=== PATIENT | male | born 1950 | race Caucasian/White ===

== ENCOUNTER 2017-08-25 18:25 | Inpatient (IN) | payer SELFPAY ==
[2017-08-25 20:35] LABS: Troponin I 0.055 ng/mL (< 0.028)
[2017-08-25 23:34] LABS: Troponin I 0.066 ng/mL (< 0.028)
[2017-08-26] MEDS ORDERED: Ondansetron HCl/PF 4 MG/2 ML Vial IVP PRN (00:15)
[2017-08-26] MEDS ORDERED: Ondansetron ODT 4 MG TAB PO PRN (00:15)
[2017-08-26] MEDS ORDERED: cloNIDine 0.1 MG TAB PO PRN (00:15)
[2017-08-26] MEDS ORDERED: Acetaminophen 500 MG TAB PO PRN (00:15)
[2017-08-26] MEDS ORDERED: hydrALAZINE 20 MG/ML VIAL SLOW IVP PRN (00:15)
--- NOTE | 2017-08-26 01:13 | HP ---
DATE OF ADMISSION: 08/25/2017 PRIMARY CARE PHYSICIAN: [facility] in [place], [place]. CHIEF COMPLAINT: Shortness of breath and leg swelling. HISTORY OF PRESENT ILLNESS: This is a 66-year-old male who presents to [facility] in transfer from a [facility] after complaining of persistent shortn ess of breath with associated lower extremity swelling, progressive over the last 3 weeks. Patient s tates that he had recently been diagnosed with influenza x2 with associated pneumonia, placed on Leva theron and followed by Dipika and given Proventil HFA inhaler. Patient states he has not seen a doc tor in over 18 years, but followed up at the clinic due to shortness of breath, fever, and suspected influenza. Patient states that his productive cough improved with antibiotics and bronchodilators. However, he noted persistent shortness of breath, which was worse with lying down with associated swe lling of the lower feet, progressing into the thighs and abdomen. Patient denies any prior similar s ymptoms or presentation in the past. Patient denies any known health problems, but does admit to smo ana cristina cigarettes up to a pack daily. Patient denies any chronic medication use, exposure history, rec ent trauma, injury, or documented fever. Patient denies any chemical exposure and states he is curre ntly retired. In the emergency department, patient underwent general evaluation including chest and CT imaging showing bilateral pleural effusions with cardiomegaly and changes consistent with pulmonar y edema. Patient underwent BNP evaluation showing a value over 2000 with elevated troponin I. Nat das received IV Lasix, aspirin 324 mg, and transdermal nitroglycerin. [facility]. PAST MEDICAL HISTORY: 1. Tobacco abuse. 2. Status post influenza/pneumonia. PAST SURGICAL HISTORY: Reviewed and negative. CURRENT MEDICATIONS: Albuterol metered-dose inhaler. ALLERGIES: No known drug allergies. FAMILY HISTORY: No inheritable diseases per patient report. SOCIAL HISTORY: Patient resides in [place], [place]. Retired. Smokes up to a pack of cigarette s daily. Positive alcohol use, quantity unclear. No illicit drug use. 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 REVIEW OF SYSTEMS: The following complete review of systems was otherwise negative, except as stated per HPI: Constitutional: Weight loss or gain, ability to conduct usual activities. Skin: Rash, i tching. Eyes: Double vision, pain. ENT/Mouth: Nose bleeding, neck stiffness, pain, tenderness. C ardiovascular: Palpitations, dyspnea on exertion, orthopnea. Respiratory: Shortness of breath, whe ezing, cough, hemoptysis, fever, or night sweats. Gastrointestinal: Poor appetite, abdominal pain, heartburn, nausea, vomiting, constipation, or diarrhea. Genitourinary: Urgency, frequency, dysuria, nocturia. Musculoskeletal: Pain, swelling. Neurologic/Psychiatric: Anxiety, depression. Allergy /Immunologic: Skin rash, bleeding tendency. PHYSICAL EXAMINATION: VITAL SIGNS: On admission, blood pressure 159/103, pulse 114, respiratory rate 22, temperature 98.8 degrees Fahrenheit, O2 saturation 91% on room air. GENERAL APPEARANCE: This is a 66-year-old male, alert and oriented x3, pleasant, conversan t, smiling, in no acute distress. HEENT: Pupils are equal, round, and reactive to light and accommodation. Extraocular muscles are in tact. No scleral icterus, no conjunctival injection. Nares patent. OP is clear. NECK: Supple, no cervical adenopathy, no thyromegaly, no carotid bruits, no JVD appreciated. Cervic al spine with full active and passive range of motion. No meningeal signs appreciated. CHEST: Diminished breath sounds bilaterally in all lung rodgers. Expiratory wheezes bilaterally. CARDIOVASCULAR: S1, S2 with distant heart sounds. ABDOMEN: Protuberant, but nontender. Bowel sounds are positive in all four quadrants. No palpable mass. No rebound or guarding appreciated. EXTREMITIES: Pitting edema to the mid thighs bilaterally. Pulses palpable distally at the dorsalis pedis, posterior tibial, and popliteal arteries bilaterally. Capillary refill less than 2 seconds. NEUROLOGIC: Cranial nerves II-XII are grossly intact. No focal or lateralizing signs appreciated. PERTINENT LABORATORY AND X-RAY FINDINGS: Sodium 133, potassium 4.9, chloride 96, CO2 of 26, BUN 8, c reatinine 0.82, estimated GFR greater than 90, glucose 108, calcium 9.9. Total bilirubin 1.4, AST 35 , ALT of 20, alkaline phosphatase 117. Troponin I ranged between 0.039, 0.066, BNP 2838. CBC showed white blood cell count of 7.6, hemoglobin 14, hematocrit 44, platelet count 191 with normal differen tial. Portable chest x-ray dated 08/25/2017 showed moderately large left pleural effusion with assoc iated atelectasis. CT imaging of the chest dated 08/25/2017 showed large bilateral layering pleural effusions with cardiomegaly and pulmonary edema. Moderate ascites in the abdomen noted with nodular appearance of the liver suggestive of cirrhosis. EKG dated 08/25/2017 by my interpretation shows sin us tachycardia with heart rates in the low 100s. Attenuated R waves noted in the precordial leads. Normal axis. No acute ST-T wave changes appreciated. ASSESSMENT AND PLAN: 1. New-onset congestive heart failure. Patient will be admitted to the telemetry unit. We will con tinue Lasix 40 mg IV q.12 hours. Obtain 2D transthoracic echocardiogram for ejection fraction, valvu lar function, and wall motion abnormalities. Start lisinopril 2.5 mg p.o. daily. Consult Cardiology Service for further evaluation due to the new-onset nature of presentation. Patient likely will nee d ischemic workup after acute exacerbation, resolved. 2. Acute dyspnea with chronic obstructive pulmonary disease. Patient without formal diagnosis of ronic obstructive pulmonary disease; however, patient with longstanding tobacco abuse. We will initi ate prednisone 40 mg p.o. daily. DuoNebs q.4 hours. Add Dulera two puffs inhaled b.i.d. Continue o xygen supplementation to maintain O2 saturations greater than or equal to 90%. 3. Elevated blood pressure. Patient without formal diagnosis of hypertension; however, we will cont inue serial blood pressure monitoring. Clonidine and hydralazine p.r.n. systolic blood pressure grea ter than or equal to 170. Start lisinopril 2.5 mg p.o. daily. 4. Elevated troponin I. Suspect demand ischemic state due to patient's presentation. We will consu Cardiology Service for further evaluation. Continue enteric-coated aspirin 325 mg p.o. daily. [facility] fasting lipid profile in the a.m. 5. Tobacco abuse. We will offer smoking cessation resources prior to discharge. 6. Prophylaxis. We will hold sequential compression devices due to lower extremity edema. Lovenox 40 mg subcutaneously daily. Pepcid 20 mg p.o. b.i.d. 7. Code status is FULL. Surrogate medical decision maker is the patient's daughter.
[2017-08-26] MEDS: Furosemide 40 MG/4 ML VIAL SLOW IVP SCH ×2 (05:37→15:04)
[2017-08-26 05:45] LABS: Band 2 % (5-11); Eosinophils 1 % (0-10); Hemoglobin 13.8 g/dL (14.0-18.0); Lymphocytes 21 % (21-51); MDiff Complete? YES; Mean Corpuscular HGB CONC 32.8 g/dL (32.0-36.0); Mean Corpuscular Hemoglobin 31.8 pg (27.0-31.0); Mean Platelet Volume 7.6 fL (7.4-10.4); Monocytes 11 % (0-10); Neutrophil 65 % (42-75); Platelet Count 172 thou/uL (130-400); RBC Distribution Width 12.6 % (11.5-14.5); Red Blood Cell (RBC) Count 4.35 mill/uL (4.70-6.10); White Blood Cell (WBC) Count 6.1 thou/uL (4.8-10.8)
[2017-08-26 06:09] LABS: ALT (SGPT) 14 U/L (8-55); AST (SGOT) 27 U/L (5-34); Albumin 4.1 g/dL (3.4-4.8); Alkaline Phosphatase 105 U/L (40-150); Anion Gap 8 mmol/L (10-20); BUN (Urea Nitrogen) 8 mg/dL (8.4-25.7); Bilirubin, Total 1.4 mg/dL (0.2-1.2); Calc. Creatinine Clearance 125 mL/min (70-130); Calcium 9.9 mg/dL (7.8-10.44); Carbon Dioxide 36 mmol/L (23-31); Cardiac Risk 5.4 (Less than 4.5); Chloride 94 mmol/L (98-107); Cholesterol 162 mg/dl (< 200 Desired); Estimated GFR-MDRD Greater than 90; Globulin 2.1 g/dL (2.4-3.5); Glucose 75 mg/dL (80-115); HDL Cholesterol 30 mg/dL (>60 Neg Risk); LDL Cholesterol, Calculated 121 mg/dL; Potassium 4.1 mmol/L (3.5-5.1); Protein, Total 6.2 g/dL (5.8-8.1); Sodium 134 mmol/L (136-145); Triglycerides 53 mg/dL (Less than 150)
[2017-08-26] MEDS: Mometasone/Formoterol 120 PUFF INHALER INH SCH ×2 (06:12→19:08)
[2017-08-26 06:26] LABS: HBCM Index 0.16 S/CO (0-0.79); HBSAg Index 0.23 S/CO (0-0.99); Hep A IgM AB Non-Reactive (NonReactive); Hep A IgM S/CO 0.09 S/CO (0-0.79); Hep B Surf Ag Non-Reactive S/CO (NonReactive); Hep C IgG Ab Non-Reactive (NonReactive); Hep C Index 0.11 S/CO (0-0.79); Hepatitis B Core IGM Abs Non-Reactive (NonReactive)
[2017-08-26] MEDS ORDERED: Lisinopril 2.5 MG TAB PO SCH (09:00)
[2017-08-26] MEDS: Aspirin 325 mg Enteric Coated Tablet PO SCH (09:19)
[2017-08-26] MEDS: predniSONE 20 MG TAB PO SCH (09:20)
[2017-08-26] MEDS: Famotidine 20 MG TAB PO SCH ×2 (09:20→21:14)
[2017-08-26] MEDS: Lisinopril 10 MG TAB PO SCH (09:20)
[2017-08-26] MEDS: Enoxaparin Sodium 40 MG/0.4 ML SYRINGE SC SCH (09:21)
--- NOTE | 2017-08-26 11:44 | PDOC.PN ---
- Subjective Encounter Start Date: 08/26/17 Encounter Start Time: 11:42 Mr. Sloan was seen today in follow-up of new onset CHF. He says he is breathing better. He denies having any chest pain. - Objective Resuscitation Status: Resuscitation Status FULL:Full Resuscitation MAR Reviewed: Yes Vital Signs & Weight: Vital Signs (12 hours) Temp Pulse Resp BP Pulse Ox 08/26/17 09:42 90 14 94 L 08/26/17 08:11 98.2 F 86 18 95 08/26/17 06:12 93 18 93 L 08/26/17 06:10 93 18 93 L 08/26/17 04:00 97.4 F L 90 19 130/77 92 L 08/26/17 01:39 92 18 92 L 08/26/17 00:15 97.5 F L 95 20 135/85 92 L Weight Weight 218 lb I&O: 08/25/17 08/26/17 08/27/17 06:59 06:59 06:59 Intake Total 240 Output Total 400 Balance -160 Result Diagrams: 08/26/17 04:29 08/26/17 04:29 Additional Labs: Accuchecks 08/26/17 08:12 POC Glucose 80 Phys Exam - Physical Examination HEENT: PERRLA + rales at both bases Cardiovascular: RRR 2/6 systolic murmur radiating to the carotids Gastrointestinal: soft, non-tender, positive bowel sounds Musculoskeletal: edema present 2+ pitting edema bilaterally Dx/Plan (1) Acute exacerbation of CHF (congestive heart failure) Code(s): I50.9 - HEART FAILURE, UNSPECIFIED Status: Acute (2) Tobacco abuse Code(s): Z72.0 - TOBACCO USE Status: Acute - Plan * Acute CHF exacerbation- ? type. He has improved with Lasix IV overnight * Will monitor electrolytes and renal function * Echo is pending. Await further recommendations from Cardiology once Echo results are available.
--- NOTE | 2017-08-26 18:41 | CON ---
DATE OF CONSULTATION: 08/26/2017 REASON FOR CONSULTATION: Heart failure. HISTORY OF PRESENT ILLNESS: Mr. Sloan is a pleasant 66-year-old white gentleman who comes to the hospital for shortness of breath. He has noted for the last 3 weeks, he is progressively getting more short of breath with increased swelling on his legs as well as his abdomen since I recommend that the shortness of breath was too bad. For the last few weeks, he was diagnosed with the flu and thought that the shortness of breath was related to the influenza virus that he actually had it originally in May, had a recurrence of shortness of breath and thought was an overt infection with bacteria, so he was given antibiotics at that time. He did get some improvement that has progressively been getting worse for the past 2-3 weeks. He was admitted for this and was found to have very elevated BNP and found to be in heart failure clinically, so he has been diuresed and Cardiology is being consulted for this. PAST MEDICAL HISTORY: 1. Tobacco abuse. 2. Recent bout with influenza. PAST SURGICAL HISTORY: None. OUTPATIENT MEDICATIONS: Albuterol inhaler p.r.n. ALLERGIES: No known drug allergies. FAMILY HISTORY: Noncontributory. SOCIAL HISTORY: Smokes a pack of cigarettes a day, drinks almost every day. No drug use. REVIEW OF SYSTEMS: A 12 point review of systems was done and is all negative unless stated in the history of present illness. PHYSICAL EXAMINATION: VITAL SIGNS: Temperature 97.8, pulse 99, respiration rate 18, sat 95% on 2 liters, blood pressure 140/86. GENERAL: Awake, alert, oriented x3, in no distress. HEENT: Normocephalic, atraumatic. NECK: Supple. JVP up to about 14 cm of water. LUNGS: Bilateral crackles. CARDIOVASCULAR: S1, S2, no S3, S4, grade 3/6 systolic ejection murmur at the right upper sternal border, no rubs and no gallops. ABDOMEN: Soft with what is likely an ascitic wave. EXTREMITIES: 2+ edema. SKIN: Warm and dry. LABORATORY WORK: White count of 6.1, hemoglobin 13, hematocrit 42, platelet count 172. Chemistries were reviewed. Troponin was in the indeterminate range at 0.05, 0.06. BNP was 2974. Albumin of 4.1. Cholesterol 162, LDL of 121, HDL of 30, triglycerides of 53, hepatitis panel was nonreactive. EKG was reviewed. ASSESSMENT AND PLAN: 1. Acute on chronic systolic versus diastolic heart failure. Echocardiogram to be done to assess which type of heart failure this is, most likely RV dysfunction as well given the amount of lower extremity edema and abdominal swelling. Agree with continued diuresis for now. Depending on what type of heart failure he has, we will decide on further risk stratification with a heart catheterization and medication therapies. 2. Volume overload diurese as above. 3. Tobacco abuse, counseled on cessation. Thank you for letting us participate in the care of your patient. We will follow. SHOSHANA
[2017-08-27] MEDS: Furosemide 40 MG/4 ML VIAL SLOW IVP SCH ×2 (05:54→14:45)
[2017-08-27 05:55] LABS: Anion Gap 10 mmol/L (10-20); BUN (Urea Nitrogen) 15 mg/dL (8.4-25.7); Calc. Creatinine Clearance 112 mL/min (70-130); Calcium 9.6 mg/dL (7.8-10.44); Carbon Dioxide 37 mmol/L (23-31); Chloride 93 mmol/L (98-107); Estimated GFR-MDRD 88; Glucose 97 mg/dL (80-115); Potassium 3.7 mmol/L (3.5-5.1); Sodium 136 mmol/L (136-145)
[2017-08-27] MEDS: Mometasone/Formoterol 120 PUFF INHALER INH SCH ×2 (09:15→18:38)
[2017-08-27] MEDS: Lisinopril 10 MG TAB PO SCH (09:21)
[2017-08-27] MEDS: Aspirin 325 mg Enteric Coated Tablet PO SCH (09:22)
[2017-08-27] MEDS: Enoxaparin Sodium 40 MG/0.4 ML SYRINGE SC SCH (09:22)
[2017-08-27] MEDS: Famotidine 20 MG TAB PO SCH ×2 (09:22→21:26)
[2017-08-27] MEDS: predniSONE 20 MG TAB PO SCH (09:22)
--- NOTE | 2017-08-27 09:27 | RAD ---
CHEST PA AND LATERAL: HISTORY: Dyspnea. COMPARISON: 08/25/17. FINDINGS: Cardiac silhouette remains obscured by bilateral pleural fluid, left greater than right. Pulmonary v asculature remains engorged. Mediastinum is midline. No evidence of pneumothorax. satellite project site monitor leads overlie the chest. IMPRESSION: Bilateral pleural fluid, pulmonary vascular congestion, and other findings appear stable. POS: [facility]
--- NOTE | 2017-08-27 10:35 | PDOC.PN ---
- Subjective Encounter Start Date: 08/27/17 Encounter Start Time: 10:34 Mr. Sloan was seen today in follow-up. He is breathing better, and notes decreased lower extremity edema. - Objective Resuscitation Status: Resuscitation Status FULL:Full Resuscitation MAR Reviewed: Yes Vital Signs & Weight: Vital Signs (12 hours) Temp Pulse Pulse Pulse Resp BP BP 08/27/17 09:24 99 91 122/71 08/27/17 09:21 116/70 08/27/17 08:05 97.6 F 109 H 20 08/27/17 03:53 98.1 F 94 15 08/27/17 02:20 102 H 16 08/26/17 23:38 98.6 F 108 H 18 BP BP BP Pulse Ox Pulse Ox Pulse Ox 08/27/17 09:24 118/80 96 97 08/27/17 09:21 08/27/17 08:05 116/70 92 L 08/27/17 03:53 104/66 96 08/27/17 02:20 98 08/26/17 23:38 97/58 L 93 L Weight Admit Weight 219 lb 9 oz Weight 203 lb 4.8 oz I&O: 08/26/17 08/27/17 08/28/17 06:59 06:59 06:59 Intake Total 240 800 Output Total 400 1200 Balance -160 -400 Result Diagrams: 08/26/17 04:29 08/27/17 04:22 Additional Labs: Accuchecks 08/26/17 08/26/17 08/26/17 21:11 16:25 11:50 POC Glucose 188 H 106 81 Phys Exam - Physical Examination HEENT: PERRLA Respiratory: no wheezing, no rales, no rhonchi, clear to auscultation bilateral Cardiovascular: RRR, no significant murmur Gastrointestinal: soft, non-tender, positive bowel sounds Musculoskeletal: edema present 2+ pitting edema bilaterally Dx/Plan (1) Acute exacerbation of CHF (congestive heart failure) Code(s): I50.9 - HEART FAILURE, UNSPECIFIED Status: Acute (2) Tobacco abuse Code(s): Z72.0 - TOBACCO USE Status: Acute (3) Acute systolic heart failure Code(s): I50.21 - ACUTE SYSTOLIC (CONGESTIVE) HEART FAILURE Status: Acute (4) Aortic stenosis, moderate Code(s): I35.0 - NONRHEUMATIC AORTIC (VALVE) STENOSIS Status: Acute - Plan * Mr. Sloan is diuresing well with Lasix. He has lost about 15 pounds in fluid * Echo results were noted. He has Systolic heart failure. He also has moderate aortic stenosis- will await further Cardiology recommendations * Patient is not sure, but believes he may have had Rheumatic heart disease as a child
--- NOTE | 2017-08-27 12:18 | PDOC.CTH ---
Cardiology Progress Note - Subjective He is doing better. he has lost 21 pounds total since admission. He still is unable to lay flat. - Objective Vital Signs Temp Pulse Pulse Pulse Resp BP BP 08/27/17 09:24 99 91 122/71 08/27/17 09:21 116/70 08/27/17 09:15 99 18 08/27/17 08:05 97.6 F 109 H 20 08/27/17 08:00 97.6 F 109 H 20 08/27/17 03:53 98.1 F 94 15 08/27/17 02:20 102 H 16 BP BP BP Pulse Ox Pulse Ox Pulse Ox 08/27/17 09:24 118/80 96 97 08/27/17 09:21 08/27/17 09:15 97 08/27/17 08:05 116/70 92 L 08/27/17 08:00 92 L 08/27/17 03:53 104/66 96 08/27/17 02:20 98 Admit Weight 219 lb 9 oz Weight 203 lb 4.8 oz 08/26/17 08/27/17 08/28/17 06:59 06:59 06:59 Intake Total 240 800 Output Total 400 1200 Balance -160 -400 - Physical Examination General/Neuro: alert & oriented x3, NAD Neck: no JVD present Lungs: CTA Heart: RRR, other: (Tachycardic.) Abdomen: NT/ND Extremities: + edema B (1+) - Telemetry Telemetry Rhythm: S Tach - Labs Result Diagrams: 08/26/17 04:29 08/27/17 04:22 Troponin/CKMB Troponin I 0.066 ng/mL (< 0.028) H 08/25/17 22:58 - Assessment/Plan 1. Acute new onset systolic heart failure. EF at 30-35% 2. Volume overload. 3. Aortic valve stenosis/regurgitation, moderate on echo. 4. Tobacco abuse. PLAN: - Will reduce dose of Lisinopril to 2.5 mg daily to be able to add Coreg at 3.125 mg BID. - Continue IV lasix. - Plan on right and left heart cath next week once closer to euvolemia.
[2017-08-27] MEDS ORDERED: Communication Order-Pharmacy FS SCH (12:45)
[2017-08-27] MEDS: Carvedilol 3.125 MG TAB PO SCH (16:59)
[2017-08-28] MEDS: Furosemide 40 MG/4 ML VIAL SLOW IVP SCH ×2 (05:39→14:36)
[2017-08-28] MEDS: Mometasone/Formoterol 120 PUFF INHALER INH SCH ×2 (06:46→18:59)
[2017-08-28] MEDS: Aspirin 325 mg Enteric Coated Tablet PO SCH (08:52)
[2017-08-28] MEDS: Lisinopril 2.5 MG TAB PO SCH (08:53)
[2017-08-28] MEDS: Famotidine 20 MG TAB PO SCH ×2 (08:56→22:31)
[2017-08-28] MEDS: Carvedilol 3.125 MG TAB PO SCH ×2 (08:57→16:23)
[2017-08-28] MEDS: predniSONE 20 MG TAB PO SCH (08:57)
[2017-08-28] MEDS: Enoxaparin Sodium 40 MG/0.4 ML SYRINGE SC SCH (08:57)
--- NOTE | 2017-08-28 09:36 | PDOC.PN ---
- Subjective Encounter Start Date: 08/28/17 Encounter Start Time: 09:34 Mr. Sloan was seen today in follow-up. He says he is breathing better. He denies any chest pain. - Objective Resuscitation Status: Resuscitation Status FULL:Full Resuscitation MAR Reviewed: Yes Vital Signs & Weight: Vital Signs (12 hours) Temp Pulse Resp BP BP Pulse Ox 08/28/17 08:53 96 112/63 08/28/17 06:46 97 08/28/17 06:44 73 18 97 08/28/17 04:00 97.9 F 95 18 132/92 H 96 08/28/17 01:53 79 20 97 08/28/17 00:06 94 L 08/28/17 00:00 97.7 F 91 18 101/64 93 L 08/27/17 21:46 103 H 20 94 L Weight Admit Weight 219 lb 9 oz Weight 202 lb 3.2 oz I&O: 08/27/17 08/28/17 08/29/17 06:59 06:59 06:59 Intake Total 800 2285 Output Total 1200 2825 Balance -400 -540 Result Diagrams: 08/26/17 04:29 08/27/17 04:22 Phys Exam - Physical Examination HEENT: PERRLA Respiratory: no wheezing, no rales, no rhonchi, clear to auscultation bilateral Cardiovascular: RRR, no significant murmur Gastrointestinal: soft, non-tender, positive bowel sounds Musculoskeletal: edema present 2+ pitting edema bilaterally Dx/Plan (1) Acute exacerbation of CHF (congestive heart failure) Code(s): I50.9 - HEART FAILURE, UNSPECIFIED Status: Acute (2) Tobacco abuse Code(s): Z72.0 - TOBACCO USE Status: Acute (3) Acute systolic heart failure Code(s): I50.21 - ACUTE SYSTOLIC (CONGESTIVE) HEART FAILURE Status: Acute (4) Aortic stenosis, moderate Code(s): I35.0 - NONRHEUMATIC AORTIC (VALVE) STENOSIS Status: Acute - Plan * Acute systolic heart failure- continue Lasix IV and incentive spirometry * Plan is for cardiac cath on Wednesday.
--- NOTE | 2017-08-28 13:51 | PDOC.CTH ---
<Taisha Conteh - Last Filed: 08/28/17 13:55> Cardiology Progress Note - Subjective The pt seen and examined. No overnight events. No cardiac complaints. - Objective Vital Signs Temp Pulse Pulse Pulse Resp BP BP 08/28/17 11:44 86 90 120/76 08/28/17 10:31 08/28/17 10:16 87 16 08/28/17 08:53 98 F 96 23 H 112/63 08/28/17 06:46 08/28/17 06:44 73 18 08/28/17 04:00 97.9 F 95 18 08/28/17 01:53 79 20 BP BP Pulse Ox Pulse Ox Pulse Ox 08/28/17 11:44 120/75 94 L 93 L 08/28/17 10:31 95 08/28/17 10:16 98 08/28/17 08:53 112/63 93 L 08/28/17 06:46 97 08/28/17 06:44 97 08/28/17 04:00 132/92 H 96 08/28/17 01:53 97 Admit Weight 219 lb 9 oz Weight 202 lb 3.2 oz 08/27/17 08/28/17 08/29/17 06:59 06:59 06:59 Intake Total 800 2285 Output Total 1200 2825 Balance -400 -540 - Physical Examination General/Neuro: alert & oriented x3 Neck: no JVD present Lungs: CTA (diminished at bases) Heart: RRR Abdomen: soft - Telemetry Telemetry Rhythm: SR - Labs Result Diagrams: 08/26/17 04:29 08/27/17 04:22 Troponin/CKMB Troponin I 0.066 ng/mL (< 0.028) H 08/25/17 22:58 - Assessment/Plan 1. New Onset systolic HF with EF 30-35% - stable with Lasix 40 mg IV BID, Coreg 3.125mg BID, and Lisinopril 2.5mg daily; cont. monitor; plan for right and left heart Cardiac cath next wk by Dr Salinas 2. mod /AR - 3. Current smoker - smoking cessation education given to the pt MAR reviewed Review of Systems - Review of Systems Constitutional: reports: no symptoms reported EENTM: reports: no symptoms reported Respiratory: reports: no symptoms reported Cardiac (ROS): reports: no symptoms reported ABD/GI: reports: no symptoms reported : reports: no symptoms reported <Rashaun Peters - Last Filed: 08/28/17 17:34> Cardiology Progress Note - Objective Vital Signs Temp Pulse Pulse Pulse Resp BP BP 08/28/17 16:28 97.7 F 89 19 08/28/17 14:49 77 18 08/28/17 11:44 86 90 120/76 08/28/17 11:03 98.1 F 96 16 08/28/17 10:31 08/28/17 10:16 87 16 08/28/17 08:53 98 F 96 23 H 112/63 08/28/17 06:46 08/28/17 06:44 73 18 BP BP Pulse Ox Pulse Ox Pulse Ox 08/28/17 16:28 136/76 91 L 08/28/17 14:49 95 08/28/17 11:44 120/75 94 L 93 L 08/28/17 11:03 122/66 90 L 08/28/17 10:31 95 08/28/17 10:16 98 08/28/17 08:53 112/63 93 L 08/28/17 06:46 97 08/28/17 06:44 97 Admit Weight 219 lb 9 oz Weight 202 lb 3.2 oz 08/27/17 08/28/17 08/29/17 06:59 06:59 06:59 Intake Total 800 2285 Output Total 1200 2825 Balance -400 -540 - Labs Result Diagrams: 08/26/17 04:29 08/27/17 04:22 Troponin/CKMB Troponin I 0.066 ng/mL (< 0.028) H 08/25/17 22:58 - Assessment/Plan Pt. seen and eval. by me. I agree with the A/P by the [employer].He has no complaints. RRR,chest clear.
[2017-08-29] MEDS: Furosemide 40 MG/4 ML VIAL SLOW IVP SCH ×2 (05:45→14:45)
[2017-08-29] MEDS: Mometasone/Formoterol 120 PUFF INHALER INH SCH ×2 (06:58→18:20)
[2017-08-29] MEDS: Enoxaparin Sodium 40 MG/0.4 ML SYRINGE SC SCH (08:33)
[2017-08-29] MEDS: Lisinopril 2.5 MG TAB PO SCH (08:34)
[2017-08-29] MEDS: predniSONE 20 MG TAB PO SCH (08:34)
[2017-08-29] MEDS: Famotidine 20 MG TAB PO SCH ×2 (08:35→21:09)
[2017-08-29] MEDS: Aspirin 325 mg Enteric Coated Tablet PO SCH (08:35)
[2017-08-29] MEDS: Carvedilol 3.125 MG TAB PO SCH ×2 (08:35→17:19)
--- NOTE | 2017-08-29 09:53 | PDOC.PN ---
- Subjective Encounter Start Date: 08/29/17 Encounter Start Time: 09:51 Mr. Sloan was seen today in follow-up. He is feeling better. He was able to lay flat through the night last night. - Objective Resuscitation Status: Resuscitation Status FULL:Full Resuscitation MAR Reviewed: Yes Vital Signs & Weight: Vital Signs (12 hours) Temp Pulse Resp BP BP Pulse Ox 08/29/17 08:34 87 133/67 08/29/17 07:46 97.8 F 87 19 133/67 94 L 08/29/17 06:56 84 16 95 08/29/17 04:00 97.6 F 83 16 119/75 93 L 08/29/17 01:33 82 18 94 L Weight Admit Weight 219 lb 9 oz Weight 193 lb 8 oz I&O: 08/28/17 08/29/17 08/30/17 06:59 06:59 06:59 Intake Total 2285 1280 Output Total 2825 3850 Balance -540 -2570 Result Diagrams: 08/26/17 04:29 08/27/17 04:22 Phys Exam - Physical Examination HEENT: PERRLA Respiratory: no wheezing, no rales, no rhonchi, clear to auscultation bilateral Cardiovascular: RRR 2/6 systolic murmur Gastrointestinal: soft Musculoskeletal: edema present + pedal edema- much reduced Dx/Plan (1) Acute exacerbation of CHF (congestive heart failure) Code(s): I50.9 - HEART FAILURE, UNSPECIFIED Status: Acute (2) Tobacco abuse Code(s): Z72.0 - TOBACCO USE Status: Acute (3) Acute systolic heart failure Code(s): I50.21 - ACUTE SYSTOLIC (CONGESTIVE) HEART FAILURE Status: Acute (4) Aortic stenosis, moderate Code(s): I35.0 - NONRHEUMATIC AORTIC (VALVE) STENOSIS Status: Acute - Plan * Acute systolic heart failure- his weight is now down to 193 pounds * He is close to euvolumia * Plan for heart cath tomorrow.
--- NOTE | 2017-08-29 11:25 | PDOC.CTH ---
<Taisha Conteh - Last Filed: 08/29/17 11:23> Cardiology Progress Note - Subjective The pt seen and examined. No overnight events. No cardiac complaints. He reported that he could be on spine position last night without any difficulties. He also reported that he has lost over 30 lbs over 3 days. - Objective Vital Signs Temp Pulse Resp BP BP Pulse Ox 08/29/17 10:47 91 16 92 L 08/29/17 08:34 87 133/67 08/29/17 07:46 97.8 F 87 19 133/67 94 L 08/29/17 06:56 84 16 95 08/29/17 04:00 97.6 F 83 16 119/75 93 L 08/29/17 01:33 82 18 94 L Admit Weight 219 lb 9 oz Weight 193 lb 8 oz 08/28/17 08/29/17 08/30/17 06:59 06:59 06:59 Intake Total 2285 1280 Output Total 2825 3850 Balance -540 -2570 - Physical Examination General/Neuro: alert & oriented x3 Neck: no JVD present Lungs: other: (diminished at bases) Heart: RRR Abdomen: soft Extremities: other: (2-3+ pitting BLE edema) - Telemetry Telemetry Rhythm: SR 70s - Labs Result Diagrams: 08/26/17 04:29 08/27/17 04:22 Troponin/CKMB Troponin I 0.066 ng/mL (< 0.028) H 08/25/17 22:58 - Assessment/Plan 1. New Onset systolic HF with EF 30-35% - stable with Lasix 40 mg IV BID, Coreg 3.125mg BID, and Lisinopril 2.5mg daily; cont. monitor; plan for right and left heart Cardiac cath next wk by Dr Salinas when he can be on Spine position for more than 1 hr. 2. mod /AR - murmur to Rt upper sternum border 3. Ex smoker, quit in 04/2017 - smoking cessation education given to the pt MAR reviewed * Possible Cardiac cath tomorrow or Wednesday by Dr Salinas? Explained the procedure and the risk of cardiac cath, such as hemorrhage, infection, perforation of catheter, thrombosis formation, CVA, TN, allergic reaction to Iodine, and even . He voiced understanding and would like to proceed the procedure. Review of Systems - Review of Systems Constitutional: reports: no symptoms reported EENTM: reports: no symptoms reported Respiratory: reports: no symptoms reported Cardiac (ROS): reports: no symptoms reported ABD/GI: reports: no symptoms reported : reports: no symptoms reported Musculoskeletal: reports: no symptoms reported Skin: reports: no symptoms reported <Rashaun Peters - Last Filed: 09/02/17 21:52> Cardiology Progress Note - Objective Vital Signs Temp Pulse Resp Pulse Ox 09/02/17 18:27 58 L 16 95 09/02/17 17:48 66 21 H 93 L 09/02/17 17:00 70 09/02/17 16:00 12 09/02/17 15:47 53 L 09/02/17 13:34 55 L 09/02/17 13:19 12 09/02/17 12:00 94.7 F L 09/02/17 11:45 64 09/02/17 11:30 94.7 F L 64 12 97 Admit Weight 219 lb 9 oz Weight 179 lb 11.2 oz 09/01/17 09/02/17 09/03/17 06:59 06:59 06:59 Intake Total 1640 1640 3043 Output Total 2550 2900 2090 Balance -910 -1260 953 - Labs Result Diagrams: 09/02/17 17:46 09/02/17 17:46 Troponin/CKMB Troponin I 0.066 ng/mL (< 0.028) H 08/25/17 22:58 - Assessment/Plan Pt. seen and eval. by me. I agree with the A/P by the [employer].
[2017-08-30] MEDS: Lisinopril 2.5 MG TAB PO SCH (05:40)
[2017-08-30] MEDS: Famotidine 20 MG TAB PO SCH ×2 (05:41→20:56)
[2017-08-30] MEDS: Carvedilol 3.125 MG TAB PO SCH ×2 (05:41→16:50)
[2017-08-30] MEDS: Furosemide 40 MG/4 ML VIAL SLOW IVP SCH ×2 (05:42→16:00)
[2017-08-30] MEDS: Aspirin 325 mg Enteric Coated Tablet PO SCH (05:42)
[2017-08-30 06:00] LABS: Anion Gap 14 mmol/L (10-20); BUN (Urea Nitrogen) 17 mg/dL (8.4-25.7); Calc. Creatinine Clearance 108 mL/min (70-130); Calcium 9.5 mg/dL (7.8-10.44); Carbon Dioxide 33 mmol/L (23-31); Chloride 93 mmol/L (98-107); Estimated GFR-MDRD Greater than 90; Glucose 86 mg/dL (80-115); Potassium 3.4 mmol/L (3.5-5.1); Sodium 137 mmol/L (136-145)
[2017-08-30] MEDS ORDERED: Lidocaine 1% (PF) 30 ML VIAL ONE ×2 (06:36→10:59)
[2017-08-30] MEDS: Mometasone/Formoterol 120 PUFF INHALER INH SCH ×2 (06:47→18:33)
[2017-08-30] MEDS ORDERED: Potassium Chloride 20 MEQ/100 ML PREMIX BAG IVPB SCH (09:30)
[2017-08-30] MEDS ORDERED: Iopamidol 370 76% 100 ML VIAL ONE (09:33)
--- NOTE | 2017-08-30 09:44 | PDOC.PN ---
- Subjective Encounter Start Date: 08/30/17 Encounter Start Time: 09:41 Mr. Sloan was seen in follow-up. He is breathing much better. He has been able to lay flat. - Objective Resuscitation Status: Resuscitation Status FULL:Full Resuscitation MAR Reviewed: Yes Vital Signs & Weight: Vital Signs (12 hours) Temp Pulse Resp BP Pulse Ox 08/30/17 06:45 82 16 94 L 08/30/17 05:40 81 08/30/17 04:00 97.8 F 81 16 110/64 93 L 08/30/17 02:17 86 16 92 L Weight Admit Weight 219 lb 9 oz Weight 189 lb I&O: 08/29/17 08/30/17 08/31/17 06:59 06:59 06:59 Intake Total 1280 1050 Output Total 3850 3320 Balance -8014 -5298 Result Diagrams: 08/26/17 04:29 08/30/17 04:22 Phys Exam - Physical Examination HEENT: PERRLA Respiratory: no wheezing, no rales, no rhonchi, clear to auscultation bilateral Cardiovascular: RRR, no significant murmur, no rub Gastrointestinal: soft, non-tender, positive bowel sounds Musculoskeletal: edema present trace pedal edema Dx/Plan (1) Acute exacerbation of CHF (congestive heart failure) Code(s): I50.9 - HEART FAILURE, UNSPECIFIED Status: Acute (2) Tobacco abuse Code(s): Z72.0 - TOBACCO USE Status: Acute (3) Acute systolic heart failure Code(s): I50.21 - ACUTE SYSTOLIC (CONGESTIVE) HEART FAILURE Status: Acute (4) Aortic stenosis, moderate Code(s): I35.0 - NONRHEUMATIC AORTIC (VALVE) STENOSIS Status: Acute - Plan * Acute systolic heart failure- patient has lost close to 40 pounds since admission * Plan is for left and right heart catheterization today * Tobaco abuse- discussed smoking cessation- the patient says " I already have taken care of this" * Heart healthy diet was discussed
[2017-08-30] MEDS ORDERED: Potassium Chloride 20 MEQ TAB PO SCH (11:00)
[2017-08-30] MEDS ORDERED: Heparin 10,000 UNITS/1 ML VIAL ONE (11:48)
[2017-08-30] MEDS ORDERED: Nitroglycerin 100MG/250ML BOT 0 ML ONE (11:48)
[2017-08-30] MEDS ORDERED: Verapamil 5 MG/2 ML VIAL ONE ×2 (11:51→12:43)
[2017-08-30] MEDS ORDERED: Midazolam HCl 2 mg/2 ml Vial ONE (11:52)
[2017-08-30] MEDS ORDERED: Fentanyl 100 MCG/2 ML VIAL ONE (11:52)
[2017-08-30] MEDS ORDERED: Sodium Chloride 0.9% 1,000 ML IV SCH (14:15)
--- NOTE | 2017-08-30 19:50 | CON ---
DATE OF CONSULTATION: 08/30/2017 HISTORY OF PRESENT ILLNESS: Mr. Sloan is a 66-year-old gentleman, who was brought into the hospital with congestive heart failure symptoms. He had an echocardiogram performed, which shows an ejection fraction on my read of approximately 20%. He had severe aortic stenosis noted on the echocardiogram with an aortic valve area of 1.2 cm and a mean gradient of 33. There is also moderate aortic regurgi tation noted. He underwent cardiac catheterization today showing no significant coronary artery dise ase. I have been asked to see him to discuss aortic valve replacement. PAST MEDICAL HISTORY: None. PAST SURGICAL HISTORY: None. CURRENT MEDICATIONS AT HOME: None. ALLERGIES: None. SOCIAL HISTORY: He smoked up until April when he was hypnotized and he began to taper his cigaret te use until he finally quit in early June. He has not had a cigarette at all since 07/02/2017. REVIEW OF SYSTEMS: Ten point review of systems is performed and is negative except as above. PHYSICAL EXAMINATION: GENERAL: This is a well-developed, well-nourished man, resting comfortably in bed. VITAL SIGNS: Height 5 feet 10 inches, weight 189 pounds, BSA is 2.06, heart rate is 77 and regular, blood pressure is 123/73. Note, his admission weight was 218 pounds, he is down to 189 today. HEENT: Sclerae nonicteric. Pupils equal, round bilaterally. NECK: No adenopathy. He has a left carotid bruit. LUNGS: Clear bilaterally with diminished breath sounds in bilateral bases. HEART: Rhythm is regular. He has a harsh systolic ejection murmur heard throughout precordium. ABDOMEN: Soft and nontender. EXTREMITIES: No cyanosis, clubbing or edema. VASCULAR: He has palpable carotid, radial, femoral, and dorsalis pedis pulses bilaterally. PSYCHIATRIC: The patient is awake, alert, and oriented to person, place and time. IMAGING: Chest x-ray shows bilateral pleural effusions. I have reviewed his chest CT from [place], which shows noncalcified ascending aorta and annulus measures approximately 25 mm in diameter that i s heavily calcified. LABORATORY DATA: Hemoglobin is 13.8, platelet count is 172,000. Potassium is 3.4, creatinine is 0.8 4. ASSESSMENT AND PLAN: This is a pleasant 66-year-old gentleman, who has severe aortic calcification a nd stenosis on echocardiogram. His ejection fraction was severely diminished at the time of admissio n. He has been diuresed and placed on Coreg and lisinopril. He has lost over 20 pounds since admiss ion in water weight. I have discussed aortic valve replacement with him. I would recommend a bioprosthetic valve. He is in agreement with this. I have critically looked at him in regards to minimally invasive approach an d do not feel this is in his best interest with his depressed left ventricular ejection fraction. I tentatively have him scheduled for . We will check a carotid ultrasound in the interim.
[2017-08-31] MEDS: Furosemide 40 MG/4 ML VIAL SLOW IVP SCH ×2 (06:38→13:56)
[2017-08-31] MEDS: Mometasone/Formoterol 120 PUFF INHALER INH SCH ×2 (07:13→19:03)
--- NOTE | 2017-08-31 08:05 | ULT ---
BILATERAL CAROTID DUPLEX ULTRASOUND: DATE: 08/31/17 HISTORY: Left-sided carotid bruit. TECHNIQUE: Hector scale ultrasound with color flow and spectral Doppler imaging of the extracranial carotid artery systems performed bilaterally. FINDINGS: There is plaque formation on either side. The peak systolic velocity in the right ICA measures 57 cm/second with an end-diastolic velocity of 2 0 cm/second and a systolic ratio of 1.10. The peak systolic velocity in the left ICA measures 51 cm/second with an end-diastolic velocity of 18 cm/second and a systolic ratio of 0.83. Flow in both vertebral arteries remains antegrade. IMPRESSION: No evidence of hemodynamically significant stenosis. POS: DAWIT
[2017-08-31] MEDS: Aspirin 325 mg Enteric Coated Tablet PO SCH (08:44)
[2017-08-31] MEDS: Potassium Chloride 20 MEQ TAB PO SCH ×2 (08:44→17:52)
[2017-08-31] MEDS: Carvedilol 3.125 MG TAB PO SCH ×2 (08:44→17:51)
[2017-08-31] MEDS: Famotidine 20 MG TAB PO SCH ×2 (08:44→21:38)
[2017-08-31] MEDS: Lisinopril 2.5 MG TAB PO SCH (08:44)
--- NOTE | 2017-08-31 11:24 | PDOC.PN ---
- Subjective Encounter Start Date: 08/31/17 Encounter Start Time: 11:26 Subjective: No complaints. Very happy with progress of diuresis -: No acute events overnight. - Objective Resuscitation Status: Resuscitation Status FULL:Full Resuscitation MAR Reviewed: Yes Vital Signs & Weight: Vital Signs (12 hours) Temp Pulse Resp BP BP Pulse Ox 08/31/17 10:22 74 16 95 08/31/17 08:00 98.0 F 86 18 94 L 08/31/17 07:55 98.0 F 86 18 123/79 94 L 08/31/17 03:20 97.9 F 81 18 111/61 95 08/31/17 01:34 81 16 08/31/17 00:00 98 F 76 18 97/57 L 98 Weight Admit Weight 219 lb 9 oz Weight 188 lb 11.2 oz I&O: 08/30/17 08/31/17 09/01/17 06:59 06:59 06:59 Intake Total 1050 1440 Output Total 3325 2600 Balance -2275 -1160 Result Diagrams: 08/26/17 04:29 08/30/17 04:22 Phys Exam - Physical Examination Constitutional: NAD HEENT: PERRLA, moist MMs, sclera anicteric Neck: no JVD, supple, full ROM Respiratory: no wheezing, no rales, no rhonchi, clear to auscultation bilateral Cardiovascular: RRR, no rub Systolic murmur. Gastrointestinal: soft, non-tender, no distention, positive bowel sounds Musculoskeletal: no edema, pulses present Neurological: non-focal, normal sensation, moves all 4 limbs Psychiatric: normal affect, A&O x 3 Skin: no rash, normal turgor Dx/Plan (1) Acute exacerbation of CHF (congestive heart failure) Code(s): I50.9 - HEART FAILURE, UNSPECIFIED Status: Acute Qualifiers: Heart failure type: systolic Qualified Code(s): I50.23 - Acute on chronic systolic (congestive) heart failure Comment: EF 30-35%. s/p cardiac catheterization. Diuresed well with > 40Ibs weight loss since admission. Continue IV diuresis for today. Continue carvedilol, ASA, Lisinopril. (2) Aortic stenosis, moderate Code(s): I35.0 - NONRHEUMATIC AORTIC (VALVE) STENOSIS Status: Acute Comment : with calcifications. Carotid doppler w no hemodynamically significant stenosis. Scheduled for AVR . (3) Tobacco abuse Code(s): Z72.0 - TOBACCO USE Status: Chronic - Plan cont current plan of care * .
--- NOTE | 2017-08-31 18:55 | PDOC.CTH ---
Cardiology Progress Note - Subjective He is doing well. His breathing is significantly improved. He met with Dr. Whaley and is scheduled for possible surgery in 2 days. - Objective Vital Signs Temp Pulse Pulse Pulse Resp BP BP 08/31/17 13:49 86 18 08/31/17 12:00 98.1 F 77 18 08/31/17 10:22 74 16 08/31/17 10:00 89 75 115/69 112/67 08/31/17 08:00 98.0 F 86 18 08/31/17 07:55 98.0 F 86 18 BP Pulse Ox Pulse Ox Pulse Ox 08/31/17 13:49 94 L 08/31/17 12:00 124/77 100 08/31/17 10:22 95 08/31/17 10:00 95 96 08/31/17 08:00 94 L 08/31/17 07:55 123/79 94 L Admit Weight 219 lb 9 oz Weight 188 lb 11.2 oz 08/30/17 08/31/17 09/01/17 06:59 06:59 06:59 Intake Total 1050 1440 Output Total 3325 2600 Balance -2275 -1160 - Physical Examination General/Neuro: alert & oriented x3, NAD Neck: no JVD present Lungs: unlabored respirations Heart: RRR Abdomen: NT/ND Extremities: + edema B (trace) - Telemetry Telemetry Rhythm: NSR - Labs Result Diagrams: 08/26/17 04:29 08/30/17 04:22 Troponin/CKMB Troponin I 0.066 ng/mL (< 0.028) H 08/25/17 22:58 - Assessment/Plan 1. Acute new onset systolic heart failure. EF at 30-35% 2. Volume overload. 3. Aortic valve stenosis SEVERE 4. Moderate AI 5. Tobacco abuse. 6. Mild CAD. PLAN: - PO lasix. - Echo today shows his LV function remains unchanged despite adequate diuresis. Still at 30-35%. - AVR in 2 days. - Continue BB and ACEI. - Replace K.
[2017-09-01 05:30] LABS: #Basophils 0.1 thou/uL (0.0-0.2); #Eosinphils 0.1 thou/uL (0.0-0.7); #Lymphocytes 1.5 thou/uL (1.20-3.40); #Monocytes 0.9 thou/uL (0.11-0.59); %Basophils 0.8 % (0.0-1.0); %Eosinophils 1.7 % (0.0-10.0); %Lymphocytes 19.5 % (21.0-51.0); %Monocytes 11.5 % (0.0-10.0); %Neutrophils 66.5 % (42.0-75.0); Hemoglobin 14.6 g/dL (14.0-18.0); Mean Corpuscular HGB CONC 32.7 g/dL (32.0-36.0); Mean Corpuscular Hemoglobin 30.7 pg (27.0-31.0); Mean Corpuscular Volume 93.9 fl (80.0-94.0); Mean Platelet Volume 7.3 fL (7.4-10.4); Platelet Count 177 thou/uL (130-400); RBC Distribution Width 12.7 % (11.5-14.5); Red Blood Cell (RBC) Count 4.74 mill/uL (4.70-6.10); White Blood Cell (WBC) Count 7.5 thou/uL (4.8-10.8)
[2017-09-01 05:35] LABS: Anion Gap 12 mmol/L (10-20); BUN (Urea Nitrogen) 16 mg/dL (8.4-25.7); Calc. Creatinine Clearance 99 mL/min (70-130); Calcium 9.7 mg/dL (7.8-10.44); Carbon Dioxide 33 mmol/L (23-31); Chloride 95 mmol/L (98-107); Estimated GFR-MDRD 84; Glucose 102 mg/dL (80-115); Potassium 3.7 mmol/L (3.5-5.1); Sodium 136 mmol/L (136-145)
[2017-09-01] MEDS: Mometasone/Formoterol 120 PUFF INHALER INH SCH ×2 (07:17→18:11)
[2017-09-01] MEDS: Carvedilol 3.125 MG TAB PO SCH ×2 (08:49→16:29)
[2017-09-01] MEDS: Potassium Chloride 20 MEQ TAB PO SCH (08:50)
[2017-09-01] MEDS: Aspirin 325 mg Enteric Coated Tablet PO SCH (08:50)
[2017-09-01] MEDS: Famotidine 20 MG TAB PO SCH ×2 (08:50→21:46)
[2017-09-01] MEDS: Lisinopril 2.5 MG TAB PO SCH (08:50)
[2017-09-01] MEDS: Furosemide 40 MG TAB PO SCH ×2 (08:50→14:33)
[2017-09-01] MEDS ORDERED: Communication Order-Pharmacy FS ONE (11:41)
[2017-09-01] MEDS ORDERED: Diazepam 5 MG TAB PO PRN (11:41)
[2017-09-01] MEDS ORDERED: Vancomycin HCl 1.5 GM in Sodium Chloride 0.9% 250 ML 300 ML IVPB SCH ×2 (11:45→16:00)
--- NOTE | 2017-09-01 12:39 | PDOC.PN ---
- Subjective Encounter Start Date: 09/01/17 Encounter Start Time: 12:40 Subjective: No complaints. has been ambulating. -: No acute events overnight. - Objective Resuscitation Status: Resuscitation Status FULL:Full Resuscitation MAR Reviewed: Yes Vital Signs & Weight: Vital Signs (12 hours) Temp Pulse Pulse Pulse Resp BP BP 09/01/17 10:57 85 16 09/01/17 08:52 82 75 131/84 108/67 09/01/17 08:46 97.7 F 77 18 09/01/17 08:00 97.7 F 77 18 09/01/17 07:19 09/01/17 07:17 79 16 09/01/17 07:15 79 16 09/01/17 04:00 97.7 F 78 20 09/01/17 02:48 78 16 BP Pulse Ox Pulse Ox Pulse Ox 09/01/17 10:57 97 09/01/17 08:52 96 95 09/01/17 08:46 108/67 94 L 09/01/17 08:00 94 L 09/01/17 07:19 95 09/01/17 07:17 95 09/01/17 07:15 95 09/01/17 04:00 103/64 93 L 09/01/17 02:48 96 Weight Admit Weight 219 lb 9 oz Weight 180 lb 1.6 oz I&O: 08/31/17 09/01/17 09/02/17 06:59 06:59 06:59 Intake Total 1440 1640 Output Total 2600 2550 Balance -1160 -910 Result Diagrams: 09/01/17 05:05 09/01/17 05:05 Phys Exam - Physical Examination Constitutional: NAD HEENT: PERRLA, moist MMs, sclera anicteric Neck: no JVD, supple, full ROM Respiratory: no wheezing, no rales, no rhonchi, clear to auscultation bilateral Cardiovascular: RRR, no rub systolic murmur Gastrointestinal: soft, non-tender, no distention, positive bowel sounds Musculoskeletal: no edema, pulses present Neurological: non-focal, moves all 4 limbs Psychiatric: normal affect, A&O x 3 Skin: no rash, normal turgor Dx/Plan (1) Acute exacerbation of CHF (congestive heart failure) Code(s): I50.9 - HEART FAILURE, UNSPECIFIED Status: Acute Qualifiers: Heart failure type: systolic Qualified Code(s): I50.23 - Acute on chronic systolic (congestive) heart failure Comment: EF 30-35%. s/p cardiac catheterization. Diuresed well with > 40Ibs weight loss since admission. Continue IV diuresis for today. Continue carvedilol, ASA, Lisinopril. (2) Tobacco abuse Code(s): Z72.0 - TOBACCO USE Status: Chronic (3) Aortic stenosis, severe Code(s): I35.0 - NONRHEUMATIC AORTIC (VALVE) STENOSIS Status: Acute Comment : with calcifications. Carotid doppler w no hemodynamically significant stenosis. Scheduled for AVR . - Plan cont current plan of care, DVT proph w/heparin * .
--- NOTE | 2017-09-01 12:55 | PDOC.CTH ---
Cardiology Progress Note - Subjective he is doing well. No new issues. - Objective Vital Signs Temp Pulse Pulse Pulse Resp BP BP 09/01/17 12:35 97.6 F 76 18 09/01/17 10:57 85 16 09/01/17 08:52 82 75 131/84 108/67 09/01/17 08:46 97.7 F 77 18 09/01/17 08:00 97.7 F 77 18 09/01/17 07:19 09/01/17 07:17 79 16 09/01/17 07:15 79 16 09/01/17 04:00 97.7 F 78 20 09/01/17 02:48 78 16 BP Pulse Ox Pulse Ox Pulse Ox 09/01/17 12:35 105/63 97 09/01/17 10:57 97 09/01/17 08:52 96 95 09/01/17 08:46 108/67 94 L 09/01/17 08:00 94 L 09/01/17 07:19 95 09/01/17 07:17 95 09/01/17 07:15 95 09/01/17 04:00 103/64 93 L 09/01/17 02:48 96 Admit Weight 219 lb 9 oz Weight 180 lb 1.6 oz 08/31/17 09/01/17 09/02/17 06:59 06:59 06:59 Intake Total 1440 1640 Output Total 2600 2550 Balance -1160 -910 - Physical Examination General/Neuro: alert & oriented x3, NAD Neck: no JVD present Lungs: unlabored respirations Heart: RRR Abdomen: NT/ND Extremities: other: (no edema) - Telemetry Telemetry Rhythm: NSR - Labs Result Diagrams: 09/01/17 05:05 09/01/17 05:05 Troponin/CKMB Troponin I 0.066 ng/mL (< 0.028) H 08/25/17 22:58 - Assessment/Plan 1. Acute new onset systolic heart failure. EF at 30-35% 2. Volume overload. 3. Aortic valve stenosis SEVERE 4. Moderate AI 5. Tobacco abuse in remission. 6. Mild CAD. PLAN: - PO lasix. - AVR possibly tomorrow per Dr. Whaley. - Continue BB and ACEI.
[2017-09-01] MEDS: Heparin 5,000 UNITS/ML VIAL SC SCH ×2 (14:33→21:47)
[2017-09-01] MEDS ORDERED: CEFAZOLIN/Water 2 GM/20 ML SYRINGE SLOW IVP SCH (16:00)
[2017-09-02 05:51] LABS: #Eosinphils 0.1 thou/uL (0.0-0.7); #Lymphocytes 1.3 thou/uL (1.20-3.40); #Monocytes 0.9 thou/uL (0.11-0.59); %Basophils 0.4 % (0.0-1.0); %Eosinophils 1.8 % (0.0-10.0); %Lymphocytes 17.3 % (21.0-51.0); %Monocytes 12.1 % (0.0-10.0); %Neutrophils 68.4 % (42.0-75.0); Hemoglobin 14.9 g/dL (14.0-18.0); Mean Corpuscular HGB CONC 32.6 g/dL (32.0-36.0); Mean Corpuscular Hemoglobin 30.8 pg (27.0-31.0); Mean Corpuscular Volume 94.3 fl (80.0-94.0); Mean Platelet Volume 7.6 fL (7.4-10.4); Platelet Count 174 thou/uL (130-400); RBC Distribution Width 12.6 % (11.5-14.5); Red Blood Cell (RBC) Count 4.85 mill/uL (4.70-6.10); White Blood Cell (WBC) Count 7.4 thou/uL (4.8-10.8)
[2017-09-02 06:00] LABS: Anion Gap 14 mmol/L (10-20); BUN (Urea Nitrogen) 17 mg/dL (8.4-25.7); Calc. Creatinine Clearance 96 mL/min (70-130); Calcium 10.1 mg/dL (7.8-10.44); Carbon Dioxide 29 mmol/L (23-31); Chloride 97 mmol/L (98-107); Estimated GFR-MDRD 85; Glucose 95 mg/dL (80-115); Potassium 3.9 mmol/L (3.5-5.1); Sodium 136 mmol/L (136-145)
[2017-09-02] MEDS ORDERED: CEFAZOLIN/Water 2 GM/20 ML SYRINGE ONE (06:20)
[2017-09-02] MEDS: Carvedilol 3.125 MG TAB PO SCH (06:23)
[2017-09-02] MEDS ORDERED: Vancomycin HCl 1.5 GM in Sodium Chloride 0.9% 250 ML 300 ML IVPB SCH (06:30)
[2017-09-02] MEDS ORDERED: Heparin 10,000 UNITS/1 ML VIAL 30,000 UNITS in Sodium Chloride 0.9% 1,000 ML FS SCH (06:45)
[2017-09-02] MEDS ORDERED: Midazolam HCl 2 mg/2 ml Vial ONE ×3 (06:45→07:06)
[2017-09-02] MEDS ORDERED: Dexmedetomidine 200 MCG/2 ML VIAL ONE (06:46)
[2017-09-02] MEDS ORDERED: Norepinephrine 8 MG/0.9% NS 250 ML ONE ×2 (06:46→06:57)
[2017-09-02] MEDS ORDERED: Vecuronium 10 MG VIAL ONE ×3 (06:46→10:15)
[2017-09-02] MEDS ORDERED: Milrinone 10 MG/10 ML VIAL ONE (07:29)
[2017-09-02] MEDS ORDERED: CEFAZOLIN 2 GM in Sodium Chloride 0.9% 100 ML IVPB SCH (07:30)
[2017-09-02] MEDS ORDERED: CEFAZOLIN/Water 2 GM/20 ML SYRINGE SLOW IVP SCH (07:30)
[2017-09-02] MEDS: Mometasone/Formoterol 120 PUFF INHALER INH SCH (07:50)
[2017-09-02] MEDS ORDERED: Albumin 5% 500 ML ONE ×2 (08:03→11:44)
[2017-09-02] MEDS ORDERED: Protamine Sulfate 250 MG/25 ML VIAL ONE (10:07)
[2017-09-02 11:50] LABS: Actual Bicarbonate (HCO3a) 23.9 mEq/L (22-26); Base Excess (BEa) -1.3 mEq/L (0 (+/-) 2.5); CO2 Tension 41.8 mmHg (35.0-45.0); Hematocrit-ABG 35.2 % (42.0-52.0); Hemoglobin (Hb) 12.4 g/dL (14.0-18.0); O2 Tension (PaO2) 207.2 mmHg (80.0-100.0); pH, Arterial 7.37 (7.35-7.45)
[2017-09-02 11:51] LABS: Calcium, Ionized 1.1 mmol/L (1.12-1.30); Puncture Site LINE
--- NOTE | 2017-09-02 12:05 | PDOC.PN ---
- Subjective Encounter Start Date: 09/02/17 Encounter Start Time: 12:11 Subjective: No new complaints -: No acute events overnight. - Objective Resuscitation Status: Resuscitation Status FULL:Full Resuscitation MAR Reviewed: Yes Vital Signs & Weight: Vital Signs (12 hours) Temp Pulse Resp BP Pulse Ox 09/02/17 11:45 64 09/02/17 04:00 97.5 F L 76 17 105/60 97 09/02/17 02:18 73 16 97 Weight Admit Weight 219 lb 9 oz Weight 179 lb 11.2 oz I&O: 09/01/17 09/02/17 09/03/17 06:59 06:59 06:59 Intake Total 1640 1640 Output Total 2550 2900 Balance -910 -1260 Result Diagrams: 09/03/17 04:30 09/03/17 04:30 Additional Labs: Accuchecks 09/02/17 09/02/17 09/02/17 10:40 09:36 09:00 POC Glucose 128 H 120 H 107 09/02/17 08:17 POC Glucose 101 Phys Exam - Physical Examination Constitutional: NAD HEENT: PERRLA, moist MMs, sclera anicteric Neck: no JVD, supple, full ROM Respiratory: no wheezing, no rales, no rhonchi, clear to auscultation bilateral Cardiovascular: RRR, no rub systolic murmur Gastrointestinal: soft, non-tender, no distention, positive bowel sounds Musculoskeletal: no edema, pulses present Neurological: non-focal, moves all 4 limbs Psychiatric: normal affect, A&O x 3 Skin: no rash, normal turgor Dx/Plan (1) Acute exacerbation of CHF (congestive heart failure) Code(s): I50.9 - HEART FAILURE, UNSPECIFIED Status: Acute Qualifiers: Heart failure type: systolic Qualified Code(s): I50.23 - Acute on chronic systolic (congestive) heart failure Comment: Resolved. Started on PO lasix. EF 30-35%. s/p cardiac catheterization. (2) Tobacco abuse Code(s): Z72.0 - TOBACCO USE Status: Chronic Comment: Encouraged on cessation. (3) Aortic stenosis, severe Code(s): I35.0 - NONRHEUMATIC AORTIC (VALVE) STENOSIS Status: Acute Comment : s/p AVR. Doing well post op. - Plan cont current plan of care, PT/OT * . Review of Systems - Medications/Allergies Allergies/Adverse Reactions: Allergies Allergy/AdvReac Type Severity Reaction Status Date / Time No Known Drug Allergies Allergy Verified 08/26/17 06:42 Medications: Current Medications Acetaminophen (Tylenol) 650 mg PO Q6H PRN PRN Reason: Headache/Fever Or Mild Pain Last Admin: 09/03/17 10:04 Dose: 650 mg Hydrocodone Bitart/Acetaminophen (Apache 5/325) 1 tab PO Q4H PRN PRN Reason: Moderate Pain (4-6) Last Admin: 09/03/17 10:04 Dose: 1 tab Hydrocodone Bitart/Acetaminophen (Apache 5/325) 2 tab PO Q4H PRN PRN Reason: Severe Pain (7-10) Last Admin: 09/03/17 16:25 Dose: 2 tab Al Hydroxide/Mg Hydroxide (Maalox) 30 ml PO Q4H PRN PRN Reason: Indigestion Albuterol/Ipratropium (Duoneb) 3 ml NEB [id number] [facility] Last Admin: 09/03/17 13:53 Dose: Not Given Albuterol/Ipratropium (Duoneb) 3 ml [id number] [facility] Last Admin: 09/03/17 14:51 Dose: 3 ml Aspirin (Aspirin) 325 mg PO DAILY [facility] Last Admin: 09/03/17 09:57 Dose: 325 mg Bisacodyl (Dulcolax) 10 mg PO Q12H PRN PRN Reason: Constipation Bisacodyl (Dulcolax) 10 mg GA Q12H PRN PRN Reason: Constipation [facility] Famotidine (Pepcid) 20 mg PO BID [facility] Last Admin: 09/03/17 09:57 Dose: 20 mg Fentanyl (Sublimaze) 25 mcg SLOW IVP Q2H PRN PRN Reason: Moderate Pain (4-6) Stop: 09/04/17 12:02 Last Admin: 09/03/17 04:27 Dose: 25 mcg Fentanyl (Sublimaze) 50 mcg SLOW IVP Q2H PRN PRN Reason: Severe Pain (7-10) Stop: 09/04/17 12:02 Furosemide (Lasix) 40 mg PO 0900,1400 [facility] Last Admin: 09/03/17 15:39 Dose: 40 mg Guaifenesin/Dextromethorphan (Robitussin Dm) 15 ml PO Q4H PRN PRN Reason: Cough Hydralazine HCl (Apresoline) 10 mg SLOW IVP Q6H PRN PRN Reason: To Maintain SBP< 140mmHG Magnesium Sulfate 2 gm/ Device 100 mls @ 100 mls/hr IVPB QAM [facility] Stop: 09/04/17 09:59 Last Admin: 09/03/17 09:57 Dose: 100 mls Nitroglycerin/Dextrose (Nitroglycerin 50 Mg/250 Ml Bot) 250 mls @ 0 mls/hr IVPB PRN PRN; Protocol; Titrate PRN Reason: To Maintain SBP< 140mmHG Ketorolac Tromethamine (Toradol) 30 mg IVP Q6HR [facility] Stop: 09/05/17 12:01 Last Admin: 09/03/17 11:53 Dose: 30 mg Morphine Sulfate (Morphine) 2 mg SLOW IVP Q15MIN PRN PRN Reason: Severe Pain (7-10) Ondansetron HCl (Zofran) 4 mg IVP Q6H PRN PRN Reason: Nausea/Vomiting Last Admin: 09/03/17 04:28 Dose: 4 mg Potassium Chloride (Kcl) 20 meq IVPB PRN PRN PRN Reason: K level </= 4.0 Promethazine HCl (Phenergan) 6.25 mg IM Q4H PRN PRN Reason: Nausea/Vomiting Sodium Chloride (Flush - Normal Saline) 10 ml IVF Q12HR [facility] Sodium Chloride (Flush - Normal Saline) 10 ml IVF PRN PRN PRN Reason: Saline Flush
[2017-09-02] MEDS ORDERED: Post-Op Insulin Drip Protocol IVPB ONE (12:10)
[2017-09-02] MEDS ORDERED: Fentanyl 100 MCG/2 ML VIAL SLOW IVP PRN ×2 (12:10)
[2017-09-02] MEDS ORDERED: Guaifenesin DM 100-10/5 ML UDCUP PO PRN (12:10)
[2017-09-02] MEDS ORDERED: Norepinephrine 8 MG/0.9% NS 250 ML IVPB PRN (12:10)
[2017-09-02] MEDS ORDERED: hydrALAZINE 20 MG/ML VIAL SLOW IVP PRN (12:10)
[2017-09-02] MEDS ORDERED: Promethazine HCl 25 MG/ML VIAL IM PRN (12:10)
[2017-09-02] MEDS ORDERED: Nitroglycerin 50 MG/250 ML BOT 250 ML IVPB PRN (12:10)
[2017-09-02] MEDS ORDERED: Mag-Al 1200 mg/1200 mg/30 ML UDCUP PO PRN (12:10)
[2017-09-02] MEDS ORDERED: Potassium Chloride 20 MEQ/100 ML PREMIX BAG IVPB PRN (12:10)
[2017-09-02] MEDS ORDERED: Bisacodyl 10 MG SUPP PR PRN (12:10)
[2017-09-02] MEDS ORDERED: Hetastarch 6% 500 ML 500 ML IVPB PRN (12:10)
[2017-09-02] MEDS ORDERED: Acetaminophen 325 MG TAB PO PRN (12:10)
[2017-09-02 12:11] LABS: #Basophils 0.1 thou/uL (0.0-0.2); #Eosinphils 0.2 thou/uL (0.0-0.7); #Lymphocytes 1.7 thou/uL (1.20-3.40); #Neutrophils 11.2 thou/uL (1.40-6.50); %Basophils 0.5 % (0.0-1.0); %Eosinophils 1.4 % (0.0-10.0); %Lymphocytes 11.9 % (21.0-51.0); %Monocytes 6.7 % (0.0-10.0); %Neutrophils 79.5 % (42.0-75.0); Hemoglobin 12.7 g/dL (14.0-18.0); Mean Corpuscular HGB CONC 32.7 g/dL (32.0-36.0); Mean Corpuscular Volume 94.8 fl (80.0-94.0); Mean Platelet Volume 7.6 fL (7.4-10.4); Platelet Count 109 thou/uL (130-400); RBC Distribution Width 12.7 % (11.5-14.5); Red Blood Cell (RBC) Count 4.09 mill/uL (4.70-6.10); White Blood Cell (WBC) Count 14.1 thou/uL (4.8-10.8)
[2017-09-02] MEDS ORDERED: Magnesium 2 GM/NS 0.9% 100 ML 2 GM in Premix Bag 1 BAG IVPB SCH (12:15)
[2017-09-02] MEDS ORDERED: D5 1/2 NS w/20 mEq KCL 1,000 ML IV SCH (12:15)
[2017-09-02 12:24] LABS: INR-International Normal Ratio 1.5; Prothrombin Time 18.7 SEC (12.0-14.7)
[2017-09-02 12:25] LABS: PTT 34.3 SEC (22.9-36.1)
--- NOTE | 2017-09-02 12:25 | OP ---
DATE OF PROCEDURE: 09/02/2017 PREOPERATIVE DIAGNOSIS: Aortic stenosis/aortic insufficiency. POSTOPERATIVE DIAGNOSIS: Aortic stenosis/aortic insufficiency. PROCEDURE: Aortic valve replacement with #25 Intuity bioprosthetic valve. SURGEONS: Dr. Hernando Whaley and Dr. Kevin Esteves. ANESTHESIA: General endotracheal, Dr. Akhil Villegas and Modesta Brice CRNA. PUMP TIME: 93 minutes. CROSS-CLAMP TIME: 53 minutes. LOW CORE TEMP: 32-degree Celsius. BENCH ASSEMBLY INSPECTOR: Betty Irwin. DRAINS: 24-[place] chest tubes x2. DRIPS: None. TRANSFUSIONS: None. DESCRIPTION OF PROCEDURE: After consent was obtained, the patient was brought to the operating room and placed in the supine position on the operating room table. Appropriate anesthetic monitor was pl aced and general endotracheal anesthesia induced. Chest and legs were prepped and draped in usual dheeraj rile fashion. Median sternotomy was performed. The patient was systemically heparinized. Thymic fa t and pericardium were divided with electrocautery. Pericardial stay sutures were placed. Aortic an d atrial cannulation was performed. After adequate heparinization, retrograde prime was performed. The patient was placed on cardiopulmonary bypass. Left ventricular sump drain was placed to the righ t superior pulmonary vein. Aortic cross-clamp was applied and antegrade sanguinous cardioplegic arre st obtained. One liter of antegrade cold cardioplegia was given. Topical cold solution was used. A transverse hockey stick aortotomy was performed. Aortic stay sutures were placed. Aortic valve was inspected. The left leaflet was freely mobile and debrided. The right and noncoronary leaflets wer e fused, heavily calcified, and completely immobile. There was significant difficulty in identifying the annulus for leaflet debridement. Once the leaflets were debrided, the annulus was decalcified w ith significant difficulty. There was calcium extending down on the anterior leaf of the mitral valv e. After the annulus was decalcified, a small area of calcium was debrided from the aortic wall just superior to the left main. The valve was measured and measured is #25. A 25 Intuity valve was wash ed. The gerry stitches were placed in each cusp. These were passed through the sewing ring and the valve was seated and held in place with Rumel tourniquets. The valve was seated nicely. Balloon was inflated to 5 mm pressure for 10 seconds. Balloon was deflated and the deployment device removed. Sutures were secured with core knots. Valve was inspected. The annulus was wide open with the suban nular skirt completely deployed. There was no fuzzy tissue visible. The aortotomy was closed with p ledgetted 4-0 Prolene suture in a dual layer fashion. De-airing maneuvers were then performed. Afte r adequate deairing, the patient was placed in Trendelenburg position. The aortic crossclamp was rem yvon. Continuous deairing through the aortic root and left ventricular sump drain was performed unti l all the air was removed from the left atrium and ventricle. Sump drain was removed and its pursest ring sutures secured. A 4-0 Prolene pursestring was placed around the aortic root vent and secured a fter it was removed. There was some bleeding around the suture line between the pulmonary artery and aorta. We went back on pump at this point to allow for pledgeted sutures to be placed securing the aortic suture line. We again wean the patient off pump. Decannulation was performed after resumptio n of sinus rhythm. The aortic cannulation site was secured with a pledgeted 4-0 Prolene suture. Pro tamine was administered. Hemostasis was ensured. BioGlue had been placed in the suture line. This was reinforced with FloSeal. After adequate hemostasis had been obtained, 24-[place] chest tubes were placed in the mediastinum. We did infuse carbon dioxide throughout the procedure through a single 2 4-[place]er chest tube placed in the mediastinum. Sternum was treated with vancomycin paste. Sternum w as closed with #7 wire. Sternum was treated with platelet-rich plasma and wires twisted. Wounds wer e irrigated, treated with platelet-poor plasma, and closed in multiple layers. The patient was trans ferred to the intensive care unit in stable, but critical condition. Needle, sponge, and instruments counts were reported correct at the end of the procedure.
[2017-09-02 12:30] LABS: Anion Gap 14 mmol/L (10-20); BUN (Urea Nitrogen) 14 mg/dL (8.4-25.7); Calc. Creatinine Clearance 112 mL/min (70-130); Calcium 8.1 mg/dL (7.8-10.44); Carbon Dioxide 23 mmol/L (23-31); Chloride 107 mmol/L (98-107); Estimated GFR-MDRD Greater than 90; Glucose 122 mg/dL (80-115); Potassium 4.6 mmol/L (3.5-5.1); Sodium 139 mmol/L (136-145)
[2017-09-02] MEDS ORDERED: Dextrose 50% Abboject 50 ML SYRINGE SLOW IVP PRN (12:58)
[2017-09-02] MEDS ORDERED: Dextrose 5% in Water 1,000 ML IV PRN (12:58)
[2017-09-02] MEDS ORDERED: Norepinephrine 8 MG in Sodium Chloride 0.9% 250 ML 250 ML IVPB PRN (13:00)
--- NOTE | 2017-09-02 13:59 | RAD ---
PORTABLE SUPINE CHEST: Comparison: 08-27-17 History: Shortness of breath. FINDINGS: There is a small left effusion which is smaller when compared to 08-27-17. Right lung remains well aera tru and clear. Heart size upper normal with post op sternotomy change. An ET tube is place with the t ip above the zora. A central line appears in adequate position. IMPRESSION: Left basilar opacification consistent with small effusion and left basilar atelectasis and/or consoli dation. Size of the effusion has decreased since prior exam. POS: [facility]
[2017-09-02] MEDS: Ketorolac Tromethamine 30 MG/ML VIAL IVP SCH ×2 (14:03→17:02)
--- NOTE | 2017-09-02 16:25 | PDOC.CTH ---
Cardiology Progress Note - Subjective He underwent AVR this morning. He currently remains intubated and sedated. - Objective Vital Signs Temp Pulse Resp Pulse Ox 09/02/17 15:47 53 L 09/02/17 13:34 55 L 09/02/17 13:19 12 09/02/17 12:00 94.7 F L 09/02/17 11:45 64 09/02/17 11:30 94.7 F L 64 12 97 Admit Weight 219 lb 9 oz Weight 179 lb 11.2 oz 09/01/17 09/02/17 09/03/17 06:59 06:59 06:59 Intake Total 1640 1640 2600 Output Total 2550 2900 1665 Balance -910 -1260 935 - Physical Examination General/Neuro: other: (Sedated intubated, ) Neck: no JVD present Lungs: CTA Heart: RRR Abdomen: NT/ND Extremities: + edema B (1+) - Telemetry Telemetry Rhythm: NSR - Labs Result Diagrams: 09/02/17 11:47 09/02/17 11:47 Troponin/CKMB Troponin I 0.066 ng/mL (< 0.028) H 08/25/17 22:58 - Assessment/Plan 1. Acute new onset systolic heart failure. EF at 30-35% 2. Volume overload. 3. Aortic valve stenosis SEVERE, s/p AVR. 4. Moderate AI 5. Tobacco abuse in remission. 6. Mild CAD. PLAN: - Continue post op care. - Continue supportive care. - BB and ACEI once BP allows - Aspirin for life.
[2017-09-02] MEDS: CEFAZOLIN/Water 2 GM/20 ML SYRINGE SLOW IVP SCH ×2 (17:05→22:25)
[2017-09-02 17:41] LABS: Actual Bicarbonate (HCO3a) 25.8 mEq/L (22-26); CO2 Tension 39.6 mmHg (35.0-45.0); O2 Tension (PaO2) 77.1 mmHg (80.0-100.0); pH, Arterial 7.43 (7.35-7.45)
[2017-09-02 17:43] LABS: Base Excess (BEa) 1.5 mEq/L (0 (+/-) 2.5); Calcium, Ionized 1.1 mmol/L (1.12-1.30); Hematocrit-ABG 31.1 % (42.0-52.0); Hemoglobin (Hb) 10.7 g/dL (14.0-18.0); Puncture Site LINE
[2017-09-02 18:14] LABS: Potassium 4.2 mmol/L (3.5-5.1)
[2017-09-02] MEDS: Vancomycin HCl 1.5 GM in Sodium Chloride 0.9% 250 ML 300 ML IVPB SCH (19:51)
[2017-09-02] MEDS: Ondansetron HCl/PF 4 MG/2 ML Vial IVP PRN (19:52)
[2017-09-02] MEDS: HYDROcodone/Acetaminophen 5/325 mg Tablet PO PRN (20:19)
[2017-09-02] MEDS ORDERED: Famotidine/PF 20 mg/2ml Vial SLOW IVP SCH (21:00)
[2017-09-03] MEDS: Ketorolac Tromethamine 30 MG/ML VIAL IVP SCH ×5 (00:55→23:56)
[2017-09-03] MEDS: Insulin Regular 300 UNITS/3 ML VIAL SC PRN ×2 (01:00→04:41)
[2017-09-03] MEDS: Ondansetron HCl/PF 4 MG/2 ML Vial IVP PRN (04:28)
[2017-09-03] MEDS: Vancomycin HCl 1.5 GM in Sodium Chloride 0.9% 250 ML 300 ML IVPB SCH (06:25)
[2017-09-03] MEDS: CEFAZOLIN/Water 2 GM/20 ML SYRINGE SLOW IVP SCH (06:25)
[2017-09-03 06:26] LABS: Anion Gap 11 mmol/L (10-20); BUN (Urea Nitrogen) 18 mg/dL (8.4-25.7); Calc. Creatinine Clearance 102 mL/min (70-130); Calcium 8.6 mg/dL (7.8-10.44); Carbon Dioxide 26 mmol/L (23-31); Chloride 109 mmol/L (98-107); Estimated GFR-MDRD Greater than 90; Glucose 129 mg/dL (80-115); Potassium 4.5 mmol/L (3.5-5.1); Sodium 141 mmol/L (136-145)
[2017-09-03 06:39] LABS: #Lymphocytes 0.6 thou/uL (1.20-3.40); #Neutrophils 7.1 thou/uL (1.40-6.50); %Basophils 0.2 % (0.0-1.0); %Eosinophils 0.5 % (0.0-10.0); %Lymphocytes 6.6 % (21.0-51.0); %Monocytes 11.8 % (0.0-10.0); %Neutrophils 80.9 % (42.0-75.0); Hemoglobin 11.1 g/dL (14.0-18.0); Mean Corpuscular HGB CONC 32.7 g/dL (32.0-36.0); Mean Corpuscular Hemoglobin 31.3 pg (27.0-31.0); Mean Corpuscular Volume 95.8 fl (80.0-94.0); Mean Platelet Volume 8.6 fL (7.4-10.4); Platelet Count 95 thou/uL (130-400); RBC Distribution Width 12.9 % (11.5-14.5); Red Blood Cell (RBC) Count 3.54 mill/uL (4.70-6.10); White Blood Cell (WBC) Count 8.7 thou/uL (4.8-10.8)
[2017-09-03] MEDS ORDERED: Metoprolol Tartrate 25 MG TAB PO SCH (09:00)
--- NOTE | 2017-09-03 09:37 | RAD ---
PORTABLE AP CHEST RADIOGRAPH: Date: 09-03-17 History: Post open heart surgery. Comparison: 09-02-17 FINDINGS: The endotracheal tube has been removed. Mediastinal drains and right subclavian central venous cathet er remain in place. There are post-surgical changes related to median sternotomy and cardiac valve re placement again noted. Cardiac silhouette does appear enlarged but is magnified by projection. There is increased opacity at the left lung base which could be related to left pleural effusion and associ ated atelectasis although the patient is rotated to the left accentuating the findings at the left elizabeth ng base. Right lung is clear. No other interval change. IMPRESSION: 1. Increased opacity left lung base could be related to left pleural effusion and associated atelecta sis. Left pleural effusion was seen on the exam performed prior to surgical changes on 08-27-17. 2. Interval removal of the endotracheal tube, but the remaining lines and tubes are stable in positio n. POS: [facility]
[2017-09-03] MEDS: Furosemide 40 MG TAB PO SCH ×2 (09:56→15:39)
[2017-09-03] MEDS: Famotidine 20 MG TAB PO SCH ×2 (09:57→21:21)
[2017-09-03] MEDS: Aspirin 325 MG TAB PO SCH (09:57)
[2017-09-03] MEDS: Magnesium 2 GM/NS 0.9% 100 ML 2 GM in Premix Bag 1 BAG IVPB SCH (09:57)
[2017-09-03] MEDS: HYDROcodone/Acetaminophen 5/325 mg Tablet PO PRN ×3 (10:04→23:56)
--- NOTE | 2017-09-03 10:22 | PDOC.PN ---
- Subjective Encounter Start Date: 09/03/17 Encounter Start Time: 10:24 Subjective: No new complaints. -: No acute events overnight -: Post op day 1. Doing well. - Objective Resuscitation Status: Resuscitation Status FULL:Full Resuscitation MAR Reviewed: Yes Vital Signs & Weight: Vital Signs (12 hours) Temp Pulse Resp Pulse Ox 09/03/17 06:21 94 L 09/03/17 06:15 83 15 94 L 09/03/17 04:00 98.1 F 09/03/17 00:03 75 20 96 09/03/17 00:00 98.5 F Weight Admit Weight 219 lb 9 oz Weight 182 lb 15.739 oz Most Recent Monitor Data Heart Rate from ECG 77 NIBP 79/48 NIBP BP-Mean 56 Respiration from ECG 10 SpO2 95 I&O: 09/02/17 09/03/17 09/04/17 06:59 06:59 06:59 Intake Total 1640 4553 Output Total 2900 2700 Balance -1260 1853 Result Diagrams: 09/03/17 04:30 09/03/17 04:30 Additional Labs: Accuchecks 09/03/17 09/03/17 09/02/17 04:37 00:55 20:59 POC Glucose 123 H 133 H 102 09/02/17 09/02/17 09/02/17 17:17 11:47 10:40 POC Glucose 117 H 116 H 128 H Phys Exam - Physical Examination Constitutional: NAD HEENT: PERRLA, moist MMs, sclera anicteric Neck: no JVD, supple, full ROM Respiratory: no wheezing, no rales, no rhonchi, clear to auscultation bilateral Cardiovascular: RRR, no significant murmur, no rub Gastrointestinal: soft, non-tender, no distention, positive bowel sounds Musculoskeletal: no edema, pulses present Neurological: non-focal, moves all 4 limbs Psychiatric: normal affect, A&O x 3 Skin: no rash, normal turgor Dx/Plan (1) Acute exacerbation of CHF (congestive heart failure) Code(s): I50.9 - HEART FAILURE, UNSPECIFIED Status: Acute Qualifiers: Heart failure type: systolic Qualified Code(s): I50.23 - Acute on chronic systolic (congestive) heart failure Comment: Resolved. Started on PO lasix. EF 30-35%. s/p cardiac catheterization. (2) Aortic stenosis, severe Code(s): I35.0 - NONRHEUMATIC AORTIC (VALVE) STENOSIS Status: Acute Comment : s/p AVR. Doing well post op. (3) Tobacco abuse Code(s): Z72.0 - TOBACCO USE Status: Chronic Comment: Encouraged on cessation. - Plan cont current plan of care, incentive spirometry Continue beta blockers, ASA and eventually ACEi -: follow cardiothoracic surgery recs. * . Review of Systems - Medications/Allergies Allergies/Adverse Reactions: Allergies Allergy/AdvReac Type Severity Reaction Status Date / Time No Known Drug Allergies Allergy Verified 08/26/17 06:42 Medications: Current Medications Acetaminophen (Tylenol) 650 mg PO Q6H PRN PRN Reason: Headache/Fever Or Mild Pain Last Admin: 09/03/17 10:04 Dose: 650 mg Hydrocodone Bitart/Acetaminophen ([place] 5/325) 1 tab PO Q4H PRN PRN Reason: Moderate Pain (4-6) Last Admin: 09/03/17 10:04 Dose: 1 tab Hydrocodone Bitart/Acetaminophen ([place] 5/325) 2 tab PO Q4H PRN PRN Reason: Severe Pain (7-10) Al Hydroxide/Mg Hydroxide (Maalox) 30 ml PO Q4H PRN PRN Reason: Indigestion Albumin Human (Albumin 5%) 12.5 gm IVPB Q6H PRN PRN Reason: To Maintain SBP> 90 mmHG Stop: 09/03/17 12:11 Last Admin: 09/02/17 13:00 Dose: 12.5 gm Albumin Human (Albumin 5%) 25 gm IVPB Q6H PRN PRN Reason: To Maintain SBP > 90 mmHG Stop: 09/03/17 12:11 Albuterol/Ipratropium (Duoneb) 3 ml NEB [id number] [facility] Last Admin: 09/03/17 06:15 Dose: Not Given Albuterol/Ipratropium (Duoneb) 3 ml EZPAP [id number] [facility] Last Admin: 09/03/17 06:15 Dose: 3 ml Aspirin (Aspirin) 325 mg PO DAILY [facility] Last Admin: 09/03/17 09:57 Dose: 325 mg Bisacodyl (Dulcolax) 10 mg PO Q12H PRN PRN Reason: Constipation Bisacodyl (Dulcolax) 10 mg AR Q12H PRN PRN Reason: Constipation Famotidine (Pepcid) 20 mg PO BID [facility] Last Admin: 09/03/17 09:57 Dose: 20 mg Fentanyl (Sublimaze) 25 mcg SLOW IVP Q2H PRN PRN Reason: Moderate Pain (4-6) Stop: 09/04/17 12:02 Last Admin: 09/03/17 04:27 Dose: 25 mcg Fentanyl (Sublimaze) 50 mcg SLOW IVP Q2H PRN PRN Reason: Severe Pain (7-10) Stop: 09/04/17 12:02 Furosemide (Lasix) 40 mg PO 0900,1400 [facility] Last Admin: 09/03/17 09:56 Dose: 40 mg Guaifenesin/Dextromethorphan (Robitussin Dm) 15 ml PO Q4H PRN PRN Reason: Cough Hydralazine HCl (Apresoline) 10 mg SLOW IVP Q6H PRN PRN Reason: To Maintain SBP< 140mmHG Hetastarch/Sodium Chloride (Hespan) 500 mls @ 0 mls/hr IVPB PRN PRN; As Directed PRN Reason: To Maintain SBP > 90mmHg Stop: 09/03/17 12:02 Magnesium Sulfate 2 gm/ Device 100 mls @ 100 mls/hr [facility] Stop: 09/04/17 09:59 Last Admin: 09/03/17 09:57 Dose: 100 mls Nitroglycerin/Dextrose (Nitroglycerin 50 Mg/250 Ml Bot) 250 mls @ 0 mls/hr IVPB PRN PRN; Protocol; Titrate PRN Reason: To Maintain SBP< 140mmHG Ketorolac Tromethamine (Toradol) 30 mg IVP Q6HR [facility] Stop: 09/05/17 12:01 Last Admin: 09/03/17 06:25 Dose: 30 mg Metoprolol Tartrate (Lopressor) 12.5 mg PO BID [facility] Last Admin: 09/03/17 09:58 Dose: Not Given Morphine Sulfate (Morphine) 2 mg SLOW IVP Q15MIN PRN PRN Reason: Severe Pain (7-10) Ondansetron HCl (Zofran) 4 mg IVP Q6H PRN PRN Reason: Nausea/Vomiting Last Admin: 09/03/17 04:28 Dose: 4 mg Potassium Chloride (Kcl) 20 meq IVPB PRN PRN PRN Reason: K level </= 4.0 Promethazine HCl (Phenergan) 6.25 mg IM Q4H PRN PRN Reason: Nausea/Vomiting
--- NOTE | 2017-09-03 14:21 | PDOC.CTH ---
Cardiology Progress Note - Subjective He is doing well. His chest tubes are out. His BP is stable. - Objective Vital Signs Temp Pulse Resp Pulse Ox 09/03/17 10:45 85 19 95 09/03/17 06:21 94 L 09/03/17 06:15 83 15 94 L 09/03/17 04:00 98.1 F Admit Weight 219 lb 9 oz Weight 182 lb 15.739 oz 09/02/17 09/03/17 09/04/17 06:59 06:59 06:59 Intake Total 1640 4553 Output Total 2900 2700 Balance -1260 1853 - Physical Examination General/Neuro: alert & oriented x3, NAD Neck: no JVD present Lungs: unlabored respirations Heart: RRR Abdomen: NT/ND Extremities: other: (no edema) - Telemetry Telemetry Rhythm: NSR - Labs Result Diagrams: 09/03/17 04:30 09/03/17 04:30 Troponin/CKMB Troponin I 0.066 ng/mL (< 0.028) H 08/25/17 22:58 - Assessment/Plan 1. Acute new onset systolic heart failure. EF at 30-35% 2. Volume overload. 3. Aortic valve stenosis SEVERE, s/p AVR. 4. Moderate AI 5. Tobacco abuse in remission. 6. Mild CAD. PLAN: - Continue post op care. - Will switch metop tart to coreg for his LV dysfunction. ACEI once BP allows - Aspirin for life. - Increase PT as tolerated.
[2017-09-03] MEDS: Carvedilol 3.125 MG TAB PO SCH (17:00)
--- NOTE | 2017-09-03 23:56 | CON ---
DATE OF CONSULTATION: 09/03/2017 HISTORY OF PRESENT ILLNESS: Mr. Sloan is a pleasant 66-year-old male. He underwent aortic valve rep lacement. I was consulted because of his presence to the Critical Care Unit. He has actually been extubated an d was sitting up in a chair. He had no complaints today. He said he did not realize how bad he felt until today and he feels so much better. He could not bel ieve he has been putting up with shortness of breath for as long as he has. PAST MEDICAL HISTORY: 1. Remarkable for smoking up until June. 2. History of left ventricular systolic dysfunction by echocardiogram. 3. Aortic stenosis. 4. History of influenza this year. He has not seen a doctor close to 20 years. He is not smoking, not drinking, he does not use drugs. MEDICATIONS: Prior to admission, he has apparently had an albuterol metered dose inhaler. ALLERGIES: He has no drug allergies. FAMILY HISTORY: Negative for diabetes, hypertension, lung disease. SOCIAL HISTORY: He lives down in [place] and is actively involved in the [employer]. REVIEW OF SYSTEMS: Twelve points otherwise negative. PHYSICAL EXAMINATION: GENERAL: He is in no distress. VITAL SIGNS: Blood pressure 99/62, heart rate 87, respiratory rates 18-20, oximetry is 98%. HEENT: Pupils are equal. Sclerae is anicteric. Extraocular movements are full. NECK: Supple, without lymphadenopathy. LUNGS: Clear. HEART: Regular rhythm. S1 and S2 are normal. ABDOMEN: Soft and nontender. EXTREMITIES: Without clubbing, cyanosis, or edema. LABORATORY DATA: White count 8.7, hemoglobin 11.1, platelets 95,000. Sodium 141, potassium is 4.5, chloride 109, bicarbonate 26, BUN 18, creatinine 0.84. IMPRESSION: 1. Aortic stenosis, status post aortic valve replacement with a bioprosthetic valve. 2. Depressed left ventricular systolic function. Hopefully, this will improve now that his valve wa s replaced. He appears to be medically stable after surgery. He is probably a [facility] 70-minute consult, greater than 50% of the consultation time was spent on the unit coordinating care.
[2017-09-04 05:12] LABS: #Lymphocytes 0.8 thou/uL (1.20-3.40); #Monocytes 1.2 thou/uL (0.11-0.59); #Neutrophils 6.1 thou/uL (1.40-6.50); %Basophils 0.1 % (0.0-1.0); %Eosinophils 0.4 % (0.0-10.0); %Lymphocytes 9.6 % (21.0-51.0); %Monocytes 14.6 % (0.0-10.0); %Neutrophils 75.3 % (42.0-75.0); Mean Corpuscular HGB CONC 32.5 g/dL (32.0-36.0); Mean Corpuscular Hemoglobin 31.6 pg (27.0-31.0); Mean Corpuscular Volume 97.3 fl (80.0-94.0); Mean Platelet Volume 8.4 fL (7.4-10.4); Platelet Count 75 thou/uL (130-400); RBC Distribution Width 12.9 % (11.5-14.5); Red Blood Cell (RBC) Count 3.14 mill/uL (4.70-6.10); White Blood Cell (WBC) Count 8.1 thou/uL (4.8-10.8)
[2017-09-04 05:13] LABS: Anion Gap 8 mmol/L (10-20); BUN (Urea Nitrogen) 22 mg/dL (8.4-25.7); Calc. Creatinine Clearance 104 mL/min (70-130); Calcium 8.8 mg/dL (7.8-10.44); Carbon Dioxide 28 mmol/L (23-31); Chloride 105 mmol/L (98-107); Estimated GFR-MDRD Greater than 90; Glucose 117 mg/dL (80-115); Potassium 4.2 mmol/L (3.5-5.1); Sodium 137 mmol/L (136-145)
[2017-09-04] MEDS: Ketorolac Tromethamine 30 MG/ML VIAL IVP SCH ×4 (06:08→23:01)
[2017-09-04] MEDS: Lisinopril 2.5 MG TAB PO SCH (07:23)
[2017-09-04] MEDS: Heparin 5,000 UNITS/ML VIAL SC SCH (07:24)
[2017-09-04] MEDS: Magnesium 2 GM/NS 0.9% 100 ML 2 GM in Premix Bag 1 BAG IVPB SCH (08:49)
[2017-09-04] MEDS: Aspirin 325 MG TAB PO SCH (08:50)
[2017-09-04] MEDS: Famotidine 20 MG TAB PO SCH ×2 (08:50→20:25)
[2017-09-04] MEDS: Furosemide 40 MG TAB PO SCH ×2 (08:50→12:49)
[2017-09-04] MEDS: Carvedilol 3.125 MG TAB PO SCH ×2 (08:50→17:41)
[2017-09-04] MEDS: HYDROcodone/Acetaminophen 5/325 mg Tablet PO PRN ×2 (08:57→13:58)
--- NOTE | 2017-09-04 10:29 | RAD ---
PORTABLE CHEST: Date: 09/04/17 PROVIDED CLINICAL HISTORY: Post open heart. FINDINGS: Comparison made with study dated 09/03/17. Opacification of much of the left hemithorax is again noted. No definite shift of the mediastinal con tents. Right lung appears normally aerated. Right-sided central line is again seen in similar positio n. Median sternotomy changes are again seen. Prosthetic cardiac valve likely present. IMPRESSION: Persistent opacification of much of the left hemithorax. This may reflect large pleural effusion with some component of atelectatic change or infiltrate. Atelectasis on the basis of mucus plugging could also be considered. POS: [facility]
--- NOTE | 2017-09-04 10:56 | PRG ---
DATE OF SERVICE: 09/04/2017 SUBJECTIVE: Mr. Sloan looks great. He is sitting up in a chair. His chest tubes are out. His Fole y is still in, so we will remove that. OBJECTIVE: VITAL SIGNS: He is afebrile. Blood pressure 112/54, heart rate 83, respiratory rate 14. LUNGS: Clear. HEART: Regular rhythm. S1 and S2 are normal. ABDOMEN: Soft and nontender. EXTREMITIES: Without clubbing, cyanosis, or edema. LABORATORY DATA: White blood cell count 8.1, hemoglobin 10, platelets 75. Sodium 137, potassium 4.2, chloride 105, bicarbonate 28, BUN 22, creatinine 0.84. Chest radiograph, reviewed by me, still suggests left lower lobe atelectasis may have a posterior fusion as well. IMPRESSION: Status post aortic valve replacement, clinically stable. We will defer to Cardiothoraci c Surgery about his radiographic findings. It actually looks extremely well, sitting up in a chair. I do not feel bronchoscopy is indicated at this point. Noncontrast chest CT scanning might be consi dered to see if there is a large effusion that might benefit from drainage, but again we will defer t o Cardiothoracic Surgery. He is stable to move out of the Critical Care Unit in my opinion.
--- NOTE | 2017-09-04 11:12 | PDOC.PN ---
- Subjective Encounter Start Date: 09/04/17 Encounter Start Time: 11:10 Subjective: No new complaints. Doing well post op -: No acute events overnight. - Objective Resuscitation Status: Resuscitation Status FULL:Full Resuscitation MAR Reviewed: Yes Vital Signs & Weight: Vital Signs (12 hours) Temp Pulse Resp Pulse Ox 09/04/17 10:47 81 23 H 92 L 09/04/17 08:00 97.5 F L 88 16 95 09/04/17 07:23 88 09/04/17 06:41 88 12 93 L 09/04/17 06:38 93 L 09/04/17 04:00 98.7 F 09/04/17 02:25 82 18 100 09/04/17 00:00 98.3 F Weight Admit Weight 219 lb 9 oz Weight 182 lb 15.739 oz Most Recent Monitor Data Heart Rate from ECG 84 NIBP 113/70 NIBP BP-Mean 87 Respiration from ECG 22 SpO2 97 I&O: 09/03/17 09/04/17 09/05/17 06:59 06:59 07:59 Intake Total 4553 1942 250 Output Total 2700 1166 165 Balance 1853 776 85 Result Diagrams: 09/04/17 04:44 09/04/17 04:44 Phys Exam - Physical Examination Constitutional: NAD HEENT: PERRLA, moist MMs, sclera anicteric Neck: no JVD, supple, full ROM Respiratory: no wheezing, no rales, no rhonchi, clear to auscultation bilateral + surgical scar Cardiovascular: RRR, no significant murmur, no rub Gastrointestinal: soft, non-tender, no distention, positive bowel sounds Musculoskeletal: no edema, pulses present Neurological: non-focal, normal sensation, moves all 4 limbs Psychiatric: normal affect, A&O x 3 Skin: no rash, normal turgor Dx/Plan (1) Acute exacerbation of CHF (congestive heart failure) Code(s): I50.9 - HEART FAILURE, UNSPECIFIED Status: Acute Qualifiers: Heart failure type: systolic Qualified Code(s): I50.23 - Acute on chronic systolic (congestive) heart failure Comment: Resolved. Started on PO lasix. EF 30-35%. s/p cardiac catheterization. (2) Tobacco abuse Code(s): Z72.0 - TOBACCO USE Status: Chronic Comment: Encouraged on cessation. (3) Aortic stenosis, severe Code(s): I35.0 - NONRHEUMATIC AORTIC (VALVE) STENOSIS Status: Acute Comment : s/p AVR. Doing well post op. (4) Thrombocytopenia Code(s): D69.6 - THROMBOCYTOPENIA, UNSPECIFIED Status: Acute Plan: Monitor. - Plan cont current plan of care Chest tube has been discontinued, avitia catheter as well * . CXR showed some atelectasis, might benefit from CT chest wo contrast. Pulmonology deferring to cardiovascular surgery. Review of Systems - Medications/Allergies Allergies/Adverse Reactions: Allergies Allergy/AdvReac Type Severity Reaction Status Date / Time No Known Drug Allergies Allergy Verified 08/26/17 06:42 Medications: Current Medications Acetaminophen (Tylenol) 650 mg PO Q6H PRN PRN Reason: Headache/Fever Or Mild Pain Last Admin: 09/03/17 10:04 Dose: 650 mg Hydrocodone Bitart/Acetaminophen ([place] 5/325) 1 tab PO Q4H PRN PRN Reason: Moderate Pain (4-6) Last Admin: 09/04/17 08:57 Dose: 1 tab Hydrocodone Bitart/Acetaminophen ([place] 5/325) 2 tab PO Q4H PRN PRN Reason: Severe Pain (7-10) Last Admin: 09/03/17 23:56 Dose: 2 tab Acetylcysteine (Mucomyst 10% (Oral Or Inh)) 600 mg INH [id number] [facility] Al Hydroxide/Mg Hydroxide (Maalox) 30 ml PO Q4H PRN PRN Reason: Indigestion Albuterol/Ipratropium (Duoneb) 3 ml NEB [id number] [facility] Last Admin: 09/04/17 06:41 Dose: Not Given Albuterol/Ipratropium (Duoneb) 3 ml EZPAP [id number] [facility] Last Admin: 09/04/17 10:47 Dose: 3 ml Aspirin (Aspirin) 325 mg PO DAILY [facility] Last Admin: 09/04/17 08:50 Dose: 325 mg Bisacodyl (Dulcolax) 10 mg PO Q12H PRN PRN Reason: Constipation Bisacodyl (Dulcolax) 10 mg [place] Q12H PRN PRN Reason: Constipation Carvedilol (Coreg) 1.5625 mg PO BID-[facility] Last Admin: 09/04/17 08:50 Dose: 1.5625 mg Famotidine (Pepcid) 20 mg PO BID [facility] Last Admin: 09/04/17 08:50 Dose: 20 mg Furosemide (Lasix) 40 mg PO 0900,1400 [facility] Last Admin: 09/04/17 08:50 Dose: 40 mg Guaifenesin (Mucinex) 1,200 mg PO Q12HR [facility] Guaifenesin/Dextromethorphan (Robitussin Dm) 15 ml PO Q4H PRN PRN Reason: Cough Ketorolac Tromethamine (Toradol) 30 mg IVP Q6HR [facility] Stop: 09/05/17 12:01 Last Admin: 09/04/17 06:08 Dose: 30 mg Ondansetron HCl (Zofran) 4 mg IVP Q6H PRN PRN Reason: Nausea/Vomiting Last Admin: 09/03/17 04:28 Dose: 4 mg Potassium Chloride (Kcl) 20 meq IVPB PRN PRN PRN Reason: K level </= 4.0 Sodium Chloride (Flush - Normal Saline) 10 ml IVF Q12HR [facility] Last Admin: 09/04/17 08:50 Dose: 10 ml Sodium Chloride (Flush - Normal Saline) 10 ml IVF PRN PRN PRN Reason: Saline Flush
[2017-09-04] MEDS: Acetylcysteine 10% 100 MG/ML 30 ml Vial INH SCH ×2 (12:20→18:44)
[2017-09-04] MEDS ORDERED: Amiodarone HCl 150 MG, Admixture Fee 1 EACH in Dextrose 5% in Water 100 ML IVPB SCH ×6 (17:45→18:15)
[2017-09-04] MEDS: Amiodarone HCl 450 MG, Admixture Fee 1 EACH in Dextrose 5% in Water 250 ML IVPB SCH ×3 (17:57)
[2017-09-04] MEDS: guaiFENesin ER 600 MG TAB PO SCH (20:25)
[2017-09-05] MEDS: Amiodarone HCl 450 MG, Admixture Fee 1 EACH in Dextrose 5% in Water 250 ML IVPB SCH ×6 (03:11→21:24)
[2017-09-05] MEDS: ACETYLCYSTEINE INH SCH ×4 (03:34→22:16)
[2017-09-05] MEDS: Acetylcysteine 10% 100 MG/ML 30 ml Vial INH SCH (03:41)
[2017-09-05] MEDS: Ketorolac Tromethamine 30 MG/ML VIAL IVP SCH ×2 (06:06→11:37)
[2017-09-05] MEDS: Carvedilol 3.125 MG TAB PO SCH ×2 (08:30→16:47)
[2017-09-05] MEDS: Furosemide 40 MG TAB PO SCH ×2 (08:31→15:28)
[2017-09-05] MEDS: Famotidine 20 MG TAB PO SCH ×2 (08:31→21:26)
[2017-09-05] MEDS: guaiFENesin ER 600 MG TAB PO SCH ×2 (08:31→21:25)
[2017-09-05] MEDS: Aspirin 325 MG TAB PO SCH (08:31)
--- NOTE | 2017-09-05 08:43 | RAD ---
PORTABLE CHEST: Date: 09/05/17 PROVIDED CLINICAL HISTORY: Post open heart. FINDINGS: Comparison made with the study dated 09/04/17. Interval improvement in aeration involving the left hemithorax. Peristent left basilar pleural parenc hymal opacity. Additional significant interval change with respect to the prior examination is not ap parent. IMPRESSION: As above. POS: [facility]
--- NOTE | 2017-09-05 11:54 | PDOC.PN ---
- Subjective Encounter Start Date: 09/05/17 Encounter Start Time: 10:40 no acute night events - Objective Resuscitation Status: Resuscitation Status FULL:Full Resuscitation Vital Signs & Weight: Vital Signs (12 hours) Temp Pulse Resp Pulse Ox 09/05/17 11:47 98.4 F 09/05/17 11:40 91 20 98 09/05/17 08:00 97.9 F 94 20 95 09/05/17 07:49 93 L 09/05/17 07:41 94 20 93 L 09/05/17 07:00 97.9 F 09/05/17 04:00 98.5 F 09/05/17 03:34 85 19 99 09/05/17 03:13 98.8 F 74 14 99 09/04/17 23:00 98.8 F Weight Admit Weight 219 lb 9 oz Weight 181 lb 10.574 oz Most Recent Monitor Data Heart Rate from ECG 88 NIBP 124/81 NIBP BP-Mean 92 Respiration from ECG 18 SpO2 91 I&O: 09/04/17 09/05/17 09/06/17 05:59 06:59 06:59 Intake Total 500 Output Total 250 Balance 250 Result Diagrams: 09/04/17 04:44 09/04/17 04:44 Phys Exam - Physical Examination Constitutional: NAD HEENT: PERRLA, moist MMs Neck: no nodes, no JVD, supple Respiratory: clear to auscultation bilateral Cardiovascular: RRR, no rub Gastrointestinal: soft, non-tender, no distention Musculoskeletal: pulses present Dx/Plan (1) Acute exacerbation of CHF (congestive heart failure) Code(s): I50.9 - HEART FAILURE, UNSPECIFIED Status: Acute Qualifiers: Heart failure type: systolic Qualified Code(s): I50.23 - Acute on chronic systolic (congestive) heart failure Comment: Resolved. Started on PO lasix. EF 30-35%. s/p cardiac catheterization. (2) Acute systolic heart failure Code(s): I50.21 - ACUTE SYSTOLIC (CONGESTIVE) HEART FAILURE Status: Acute (3) Aortic stenosis, severe Code(s): I35.0 - NONRHEUMATIC AORTIC (VALVE) STENOSIS Status: Acute Comment : s/p AVR. Doing well post op. (4) Thrombocytopenia Code(s): D69.6 - THROMBOCYTOPENIA, UNSPECIFIED Status: Acute (5) Tobacco abuse Code(s): Z72.0 - TOBACCO USE Status: Chronic Comment: Encouraged on cessation. - Plan cont current plan of care, plan discussed w/ family * . s/p AVR s/p chest tube removal pending recs from CT surgery cxr shows persistent basilar opacity pulm following pain mgmt control
--- NOTE | 2017-09-05 13:20 | CT ---
CT CHEST WITHOUT CONTRAST: Date: 09/05/17 PROVIDED CLINICAL HISTORY: Pleural effusion. FINDINGS: Comparison made with study dated 08/25/17. Interval postoperative changes of aortic valve replacement. Postoperative stranding and gas noted sub jacent to the sternotomy change. Vascular calcification, including coronary calcium, demonstrated. Ri ght IJ central line is noted with tip terminating in the distal SVC. There are large bilateral pleural effusions present with adjacent passive atelectasis. The lungs appe ar otherwise clear. No evidence for pneumothorax. The airway appears patent and of normal caliber, an d not obscured by compressive atelectasis. Evaluation for lymph node enlargement is limited. The hear t appears enlarged. The visualized portions of the upper abdomen demonstrate trace ascites about the right hepatic margin . The osseous structures demonstrate no concerning osteoblastic or osteolytic lesions. IMPRESSION: 1. Interval postoperative change as above. 2. Large bilateral pleural effusions with adjacent passive atelectasis. POS: [facility]
--- NOTE | 2017-09-05 16:30 | PRG ---
DATE OF SERVICE: 09/05/2017 SUBJECTIVE: Mr. Sloan did well overnight. He had no complaints. He was sitting on the chair again when I evaluated him today. Decreased breath sounds at his left base. He was in no distress. He had nasal cannula oxygen in mikey ce. OBJECTIVE: VITAL SIGNS: Blood pressure is 133/68. He is afebrile. Heart rate is 106. HEART: Regular rhythm. ABDOMEN: Soft. EXTREMITIES: Without asymmetry or edema. LABORATORY DATA: White blood cell count 8.1, hemoglobin 10.0 and platelets 75,000. Sodium 137, pota ssium 4.2, chloride 105, bicarbonate 28, BUN 22 and creatinine 0.4. ASSESSMENT AND PLAN: I have ordered a chest CT today to see how much of his haziness at his left bas e was effusion and how much is simply atelectasis. He has pretty significant bilateral effusions by my review. I have discussed thoracentesis with him. We will see how he looks in the morning, but may consider t horacentesis on one side in the morning.
[2017-09-05] MEDS: HYDROcodone/Acetaminophen 5/325 mg Tablet PO PRN (16:55)
[2017-09-06] MEDS: HYDROcodone/Acetaminophen 5/325 mg Tablet PO PRN ×5 (02:11→20:24)
[2017-09-06] MEDS: ACETYLCYSTEINE INH SCH ×4 (04:10→18:35)
[2017-09-06] MEDS: Furosemide 40 MG TAB PO SCH ×2 (08:54→15:11)
[2017-09-06] MEDS: guaiFENesin ER 600 MG TAB PO SCH ×2 (08:55→20:24)
[2017-09-06] MEDS: Famotidine 20 MG TAB PO SCH ×2 (08:55→20:23)
[2017-09-06] MEDS: Aspirin 325 MG TAB PO SCH (08:55)
[2017-09-06] MEDS: Carvedilol 3.125 MG TAB PO SCH ×2 (08:55→17:36)
--- NOTE | 2017-09-06 09:02 | RAD ---
CHEST 2 VIEWS: Date: 09/06/17 HISTORY: Right pleural effusion. COMPARISON: CT from prior day. FINDINGS: There are bilateral layering pleural effusions, much larger on the left than on the right. No pneumot horax. Central venous catheter tip in inferior SVC. Aortic valve replacement. IMPRESSION: Bilateral layering pleural effusions, similar. POS: [facility]
--- NOTE | 2017-09-06 10:31 | PDOC.PN ---
- Subjective Encounter Start Date: 09/06/17 Encounter Start Time: 08:40 no acute night events. states his breathing a little better today. no acute night events - Objective Resuscitation Status: Resuscitation Status FULL:Full Resuscitation Vital Signs & Weight: Vital Signs (12 hours) Temp Pulse Resp BP BP Pulse Ox 09/06/17 07:54 98.4 F 88 18 97 09/06/17 07:10 98.4 F 88 18 124/89 97 09/06/17 07:09 84 16 92 L 09/06/17 05:53 97.4 F L 92 19 97/58 L 94 L 09/06/17 02:20 91 18 90 L Weight Admit Weight 219 lb 9 oz Weight 188 lb 12.8 oz Most Recent Monitor Data Heart Rate from ECG 91 NIBP 93/63 NIBP BP-Mean 72 Respiration from ECG 21 SpO2 91 I&O: 09/05/17 09/06/17 09/07/17 06:59 06:59 06:59 Intake Total 1530 Output Total 350 Balance 1180 Result Diagrams: 09/04/17 04:44 09/04/17 04:44 Phys Exam - Physical Examination Constitutional: NAD HEENT: PERRLA, moist MMs Neck: no nodes, no JVD, supple Respiratory: no wheezing mild wheezing. decreased BS bibasilar Cardiovascular: RRR, no rub Gastrointestinal: soft, non-tender Musculoskeletal: pulses present Neurological: non-focal, moves all 4 limbs Psychiatric: normal affect, A&O x 3 Dx/Plan (1) Acute exacerbation of CHF (congestive heart failure) Code(s): I50.9 - HEART FAILURE, UNSPECIFIED Status: Acute Qualifiers: Heart failure type: systolic Qualified Code(s): I50.23 - Acute on chronic systolic (congestive) heart failure Comment: Resolved. Started on PO lasix. EF 30-35%. s/p cardiac catheterization. (2) Acute systolic heart failure Code(s): I50.21 - ACUTE SYSTOLIC (CONGESTIVE) HEART FAILURE Status: Acute (3) Aortic stenosis, severe Code(s): I35.0 - NONRHEUMATIC AORTIC (VALVE) STENOSIS Status: Acute Comment : s/p AVR. Doing well post op. (4) Thrombocytopenia Code(s): D69.6 - THROMBOCYTOPENIA, UNSPECIFIED Status: Acute (5) Tobacco abuse Code(s): Z72.0 - TOBACCO USE Status: Chronic Comment: Encouraged on cessation. - Plan cont current plan of care, plan discussed w/ family, PT/OT * . thoracocentesis today pulm following continue current meds monitor accordingly supportive care mgmt
--- NOTE | 2017-09-06 13:02 | OP ---
PROCEDURE: Thoracentesis. ROOF TRUSS MACHINE TENDER: Adonay Elizondo M.D. PROCEDURE IN DETAIL: Left posterior hemithorax was cleansed with chlorhexidine after patient gave co nsent. Risk of bleeding, infection, lung collapse, and least likely were explained. Left posterior hemithorax was anesthetized with 10 mL of 1% lidocaine. A small incision was made wit h a #11 blade. An 8-[place]ian catheter was inserted in the pleural space. One liter of serosanguineous pleural fluid w as easily evacuated from the left chest. Procedure was terminated when he developed some mild pleuri sy. Fluid was sent for LDH, protein, glucose, and cytology, although it is felt that this is most li charisse an aortic stenosis related to effusion with some blood in it from his recent aortic valve replac ement. He tolerated the procedure well. There was no air evacuated. No chest radiograph was done i mmediately post-procedure.
[2017-09-06] MEDS ORDERED: Digoxin 0.5 MG/2 ML AMP SLOW IVP SCH (13:45)
[2017-09-06] MEDS: Digoxin 0.5 MG/2 ML AMP SLOW IVP SCH ×2 (15:12→23:17)
[2017-09-06] MEDS: Amiodarone HCl 450 MG, Admixture Fee 1 EACH in Dextrose 5% in Water 250 ML IVPB SCH ×3 (15:49)
--- NOTE | 2017-09-06 18:04 | PDOC.CTH ---
Cardiology Progress Note - Subjective He is doing well. he has been walking around with PT without issues. He went into afib over the weekend and was started on IV amiodarone. he also had a large pleural effusion on the left and had 1L of serosanguineous fluid drained today by Dr. Elizondo and he feels much better. - Objective Vital Signs Temp Pulse Pulse Pulse Resp BP BP 09/06/17 15:12 90 09/06/17 14:42 90 18 09/06/17 11:54 97.6 F 96 16 09/06/17 10:37 86 16 09/06/17 09:58 94 83 108/69 110/71 09/06/17 07:54 98.4 F 88 18 09/06/17 07:10 98.4 F 88 18 09/06/17 07:09 84 16 BP BP Pulse Ox Pulse Ox Pulse Ox 09/06/17 15:12 09/06/17 14:42 92 L 09/06/17 11:54 109/78 96 09/06/17 10:37 97 09/06/17 09:58 95 100 09/06/17 07:54 97 09/06/17 07:10 124/89 97 09/06/17 07:09 92 L Admit Weight 219 lb 9 oz Weight 188 lb 12.8 oz 09/05/17 09/06/17 09/07/17 06:59 06:59 06:59 Intake Total 1530 Output Total 350 Balance 1180 - Physical Examination General/Neuro: alert & oriented x3, NAD Neck: no JVD present Lungs: unlabored respirations Heart: other: (Irregular) Abdomen: NT/ND Extremities: + edema B (1+) - Telemetry Telemetry Rhythm: Afib HR 70's. - Labs Result Diagrams: 09/04/17 04:44 09/04/17 04:44 Troponin/CKMB Troponin I 0.066 ng/mL (< 0.028) H 08/25/17 22:58 - Assessment/Plan 1. Acute new onset systolic heart failure. EF at 30-35% 2. Post op afib. 3. Aortic valve disease, moderate AI, stenosis SEVERE, s/p AVR. 4. Pleural effusions s/sp Thoracenthesis. 5. Tobacco abuse in remission. 6. Mild CAD. PLAN: - Continue amiodarone drip. Will switch to PO once he converts. - Continue BB and ACEI. - Aspirin for life. - Increase PT as tolerated.
[2017-09-07] MEDS: HYDROcodone/Acetaminophen 5/325 mg Tablet PO PRN ×6 (01:27→23:46)
[2017-09-07] MEDS: ACETYLCYSTEINE INH SCH ×4 (02:17→18:29)
[2017-09-07 05:27] LABS: #Eosinphils 0.1 thou/uL (0.0-0.7); #Lymphocytes 0.9 thou/uL (1.20-3.40); #Neutrophils 5.8 thou/uL (1.40-6.50); %Basophils 0.3 % (0.0-1.0); %Eosinophils 0.8 % (0.0-10.0); %Lymphocytes 11.4 % (21.0-51.0); %Monocytes 12.8 % (0.0-10.0); %Neutrophils 74.7 % (42.0-75.0); Hemoglobin 9.9 g/dL (14.0-18.0); Mean Corpuscular HGB CONC 33.3 g/dL (32.0-36.0); Mean Corpuscular Hemoglobin 31.5 pg (27.0-31.0); Mean Corpuscular Volume 94.7 fl (80.0-94.0); Mean Platelet Volume 7.8 fL (7.4-10.4); Platelet Count 121 thou/uL (130-400); Red Blood Cell (RBC) Count 3.13 mill/uL (4.70-6.10); White Blood Cell (WBC) Count 7.8 thou/uL (4.8-10.8)
[2017-09-07 05:43] LABS: Anion Gap 13 mmol/L (10-20); BUN (Urea Nitrogen) 16 mg/dL (8.4-25.7); Calc. Creatinine Clearance 124 mL/min (70-130); Calcium 9.3 mg/dL (7.8-10.44); Carbon Dioxide 28 mmol/L (23-31); Chloride 98 mmol/L (98-107); Estimated GFR-MDRD Greater than 90; Glucose 109 mg/dL (80-115); Sodium 135 mmol/L (136-145)
--- NOTE | 2017-09-07 07:31 | RAD ---
CHEST 1 VIEW: HISTORY: Dyspnea. Followup. COMPARISON: 09/06/17. FINDINGS: Cardiac silhouette remains magnified and enlarged. Pulmonary vasculature is upper limits of normal. Mediastinum is midline. Right subclavian central venous catheter remains in place. Left pleural fluid has decreased since the prior study. A small amount of right pleural fluid and bi basilar atelectasis remain. groundwater monitoring technician leads overlie the chest. IMPRESSION: Interval decreased left pleural fluid. Other findings are stable. POS: [facility]
[2017-09-07] MEDS: Digoxin 0.5 MG/2 ML AMP SLOW IVP SCH ×2 (07:59→15:06)
[2017-09-07] MEDS: Amiodarone HCl 450 MG, Admixture Fee 1 EACH in Dextrose 5% in Water 250 ML IVPB SCH ×3 (08:04)
[2017-09-07] MEDS: Carvedilol 3.125 MG TAB PO SCH ×2 (08:14→17:35)
[2017-09-07 09:33] VITALS: BMI 28.3
[2017-09-07] MEDS: Aspirin 325 MG TAB PO SCH (09:38)
[2017-09-07] MEDS: Furosemide 40 MG TAB PO SCH ×2 (09:39→15:05)
[2017-09-07] MEDS: Famotidine 20 MG TAB PO SCH ×2 (09:39→19:24)
[2017-09-07] MEDS: guaiFENesin ER 600 MG TAB PO SCH ×2 (09:39→19:24)
--- NOTE | 2017-09-07 10:15 | PRG ---
DATE OF SERVICE: 09/07/2017 This morning he is awake, alert, responsive. He is walking the halls. PHYSICAL EXAMINATION: VITAL SIGNS: Sats are 90% on room air, temperature 97, pulse 76, blood pressure 120/83. CHEST: Chest reveals decreased breath sounds, no wheezing. CARDIAC: Normal S1, S2. ABDOMEN: Soft, no masses. White count 10,000, H&H 8 and 27, platelet count 110. Electrolytes are normal. IMPRESSION: 1. Status post aortic valve replacement. 2. Bilateral atelectasis. 3. Supraventricular tachycardia. 4. Status post thoracentesis of large volume fluid in the left chest. PLAN: Continue aggressive PT and supportive care. Home when okay with Cardiology. I will follow.
--- NOTE | 2017-09-07 18:18 | PDOC.PN ---
- Subjective Encounter Start Date: 09/07/17 Encounter Start Time: 18:17 Subjective: nsg notes rev, yuli ovn, reports improved breathing compared to pre -: thoracentesis, denies any overt CP - Objective Resuscitation Status: Resuscitation Status FULL:Full Resuscitation Vital Signs & Weight: Vital Signs (12 hours) Temp Pulse Pulse Pulse Resp BP BP 09/07/17 15:05 97.3 F L 68 16 09/07/17 13:51 85 16 09/07/17 13:07 70 63 110/68 102/62 09/07/17 11:52 97.8 F 61 16 09/07/17 10:33 87 18 09/07/17 09:19 74 63 113/79 115/67 09/07/17 07:59 76 09/07/17 07:52 97.8 F 76 18 09/07/17 06:24 09/07/17 06:19 88 20 BP BP Pulse Ox Pulse Ox Pulse Ox 09/07/17 15:05 145/79 H 93 L 09/07/17 13:51 94 L 09/07/17 13:07 93 L 92 L 09/07/17 11:52 128/65 92 L 09/07/17 10:33 92 L 09/07/17 09:19 99 93 L 09/07/17 07:59 09/07/17 07:52 128/83 128/83 90 L 09/07/17 06:24 90 L 09/07/17 06:19 90 L Weight Admit Weight 219 lb 9 oz Weight 197 lb Most Recent Monitor Data Heart Rate from ECG 91 NIBP 93/63 NIBP BP-Mean 72 Respiration from ECG 21 SpO2 91 I&O: 09/06/17 09/07/17 09/08/17 06:59 06:59 06:59 Intake Total 1530 Output Total 350 Balance 1180 Result Diagrams: 09/07/17 04:40 09/07/17 04:40 Phys Exam - Physical Examination Constitutional: NAD HEENT: PERRLA, moist MMs, sclera anicteric Neck: no nodes, no JVD Respiratory: no wheezing, no rales, no rhonchi coarse throughout, thoracentesis site c/d/i Cardiovascular: RRR, no significant murmur, no rub central triple lumen access ant sc Gastrointestinal: soft, non-tender, no distention, positive bowel sounds Musculoskeletal: pulses present Neurological: moves all 4 limbs Psychiatric: normal affect, A&O x 3 Dx/Plan - Plan acute CHF, systolic EF 30-35% * s/p LHC * apprec card c/s * lasix PO sev AoS * hemodynamically stable, cont to monitor afib * amio IV gtt - transition to PO when converted to NSR * continue tele L sided pleural effusion * s/p thoracentesis 09/06 * apprec pulm c/s * pending cytology thrombocytopenia, hemodynamically stable, monitor tobacco use, counselled re: cessation diet: cardiac activity: as eric, PT dvt ppx Review of Systems - Medications/Allergies Allergies/Adverse Reactions: Allergies Allergy/AdvReac Type Severity Reaction Status Date / Time No Known Drug Allergies Allergy Verified 08/26/17 06:42 Medications: Current Medications Acetaminophen (Tylenol) 650 mg PO Q6H PRN PRN Reason: Headache/Fever Or Mild Pain Last Admin: 09/03/17 10:04 Dose: 650 mg Hydrocodone Bitart/Acetaminophen ([place] 5/325) 1 tab PO Q4H PRN PRN Reason: Moderate Pain (4-6) Last Admin: 09/07/17 15:11 Dose: 1 tab Hydrocodone Bitart/Acetaminophen ([place] 5/325) 2 tab PO Q4H PRN PRN Reason: Severe Pain (7-10) Last Admin: 09/07/17 05:31 Dose: 2 tab Acetylcysteine (Acetylcysteine 20%) 600 mg INH [id number] [facility] Last Admin: 09/07/17 13:52 Dose: 600 mg Al Hydroxide/Mg Hydroxide (Maalox) 30 ml PO Q4H PRN PRN Reason: Indigestion Albuterol/Ipratropium (Duoneb) 3 ml EZPAP [id number] [facility] Last Admin: 09/07/17 13:51 Dose: 3 ml Aspirin (Aspirin) 325 mg PO DAILY [facility] Last Admin: 09/07/17 09:38 Dose: 325 mg Bisacodyl (Dulcolax) 10 mg PO Q12H PRN PRN Reason: Constipation Bisacodyl (Dulcolax) 10 mg MT Q12H PRN PRN Reason: Constipation Carvedilol (Coreg) 1.5625 mg PO BID-[facility] Last Admin: 09/07/17 17:35 Dose: 1.5625 mg Famotidine (Pepcid) 20 mg PO BID [facility] Last Admin: 09/07/17 09:39 Dose: 20 mg Furosemide (Lasix) 40 mg PO 0900,1400 [facility] Last Admin: 09/07/17 15:05 Dose: 40 mg Guaifenesin (Mucinex) 1,200 mg PO Q12HR [facility] Last Admin: 09/07/17 09:39 Dose: 1,200 mg Guaifenesin/Dextromethorphan (Robitussin Dm) 15 ml PO Q4H PRN PRN Reason: Cough Last Admin: 09/07/17 17:38 Dose: 15 ml Amiodarone HCl 450 mg/Miscellaneous Medication 1 each/ Dextrose/Water 259 mls @ 0 mls/hr IVPB INF STELLA; As Directed PRN Reason: Protocol Last Admin: 09/07/17 08:04 Dose: 259 mls Ondansetron HCl (Zofran) 4 mg IVP Q6H PRN PRN Reason: Nausea/Vomiting Last Admin: 09/03/17 04:28 Dose: 4 mg Potassium Chloride (Kcl) 20 meq IVPB PRN PRN PRN Reason: K level </= 4.0 Sodium Chloride (Flush - Normal Saline) 10 ml IVF Q12HR [facility] Last Admin: 09/07/17 09:42 Dose: 10 ml Sodium Chloride (Flush - Normal Saline) 10 ml IVF PRN PRN PRN Reason: Saline Flush Last Admin: 09/04/17 17:23 Dose: 10 ml
[2017-09-08] MEDS: Amiodarone HCl 450 MG, Admixture Fee 1 EACH in Dextrose 5% in Water 250 ML IVPB SCH ×6 (00:16→17:14)
[2017-09-08] MEDS: ACETYLCYSTEINE INH SCH ×4 (02:15→19:16)
[2017-09-08] MEDS: Bisacodyl 5 MG TAB PO PRN ×2 (03:19→17:16)
[2017-09-08] MEDS: HYDROcodone/Acetaminophen 5/325 mg Tablet PO PRN ×2 (06:04→17:15)
--- NOTE | 2017-09-08 06:54 | EKG ---
Test Reason : POST CABG Blood Pressure : / mmHG Vent. Rate : 048 BPM Atrial Rate : 048 BPM P-R Int : 244 ms QRS Dur : 092 ms QT Int : 558 ms P-R-T Axes : 068 042 086 degrees QTc Int : 498 ms Marked sinus bradycardia with 1st degree A-V block Nonspecific T wave abnormality Prolonged QT Abnormal ECG No previous ECGs available Confirmed by DR. Bean WILKES ([id number]) on 09/08/2017 6:54:26 AM Referred By: Pancho AKHTAR Confirmed By:DR. Bean WILKES
[2017-09-08] MEDS: guaiFENesin ER 600 MG TAB PO SCH ×2 (09:20→20:48)
[2017-09-08] MEDS: Aspirin 325 MG TAB PO SCH (09:20)
[2017-09-08] MEDS: Famotidine 20 MG TAB PO SCH ×2 (09:20→20:48)
[2017-09-08] MEDS: Furosemide 40 MG TAB PO SCH ×2 (09:20→15:15)
[2017-09-08] MEDS: Carvedilol 3.125 MG TAB PO SCH ×2 (09:21→17:16)
[2017-09-08] MEDS ORDERED: Carvedilol 3.125 MG TAB PO SCH ×2 (09:57→10:00)
[2017-09-08] MEDS ORDERED: Enoxaparin Sodium 40 MG/0.4 ML SYRINGE SC SCH (10:00)
[2017-09-08] MEDS ORDERED: Enoxaparin Sodium 100 MG/ML SYRINGE SC SCH (11:45)
[2017-09-08] MEDS ORDERED: Acetylcysteine 20% 200 MG/ML 30 ML VIAL INH SCH (13:00)
--- NOTE | 2017-09-08 13:38 | PRG ---
DATE OF SERVICE: 09/08/2017 SUBJECTIVE: Jaun Sloan is better this morning. PHYSICAL EXAMINATION: VITAL SIGNS: Sats are 90% on room air, respiration rate 18, temperature 98, blood pressure 130/78. CHEST: Minimal crackles and rhonchi. CARDIAC: Normal S1, S2. ABDOMEN: Soft. No mass. IMPRESSION: Status post aortic valve replacement, congestive heart failure, supraventricular tachyca rdia. PLAN: Disposition as per Cardiology, he is on amiodarone, Lovenox, and diuretics. Pulmonary-mallory, continue present treatment. We will follow.
--- NOTE | 2017-09-08 15:39 | PDOC.CTH ---
Cardiology Progress Note - Subjective He feels well. He remains in flutter. - Objective Vital Signs Temp Pulse Pulse Pulse Resp BP BP 09/08/17 13:14 64 59 L 114/66 114/69 09/08/17 12:00 97.4 F L 64 18 09/08/17 11:00 64 18 09/08/17 09:48 77 64 136/69 125/72 09/08/17 08:00 97.4 F L 64 18 09/08/17 07:42 98.1 F 64 18 09/08/17 07:00 66 16 09/08/17 04:00 97.6 F 63 22 H BP BP Pulse Ox Pulse Ox Pulse Ox 09/08/17 13:14 96 95 09/08/17 12:00 131/79 98 09/08/17 11:00 95 09/08/17 09:48 100 93 L 09/08/17 08:00 95 09/08/17 07:42 130/78 97 09/08/17 07:00 94 L 09/08/17 04:00 130/72 96 Admit Weight 219 lb 9 oz Weight 197 lb 9.6 oz 09/07/17 09/08/17 09/09/17 06:59 06:59 06:59 Intake Total 1350 Output Total 1100 Balance 250 - Physical Examination General/Neuro: alert & oriented x3, NAD Neck: no JVD present Lungs: unlabored respirations Heart: other: (Irregular) Abdomen: NT/ND Extremities: + edema B (none) - Telemetry Telemetry Rhythm: Aflutter hood block HR 60 - Labs Result Diagrams: 09/07/17 04:40 09/07/17 04:40 Troponin/CKMB Troponin I 0.066 ng/mL (< 0.028) H 08/25/17 22:58 - Assessment/Plan 1. Acute new onset systolic heart failure. EF at 30-35% 2. Post op afib/flutter now. 3. Aortic valve disease, moderate AI, stenosis SEVERE, s/p AVR. 4. Pleural effusions s/sp Thoracenthesis. 5. Tobacco abuse in remission. 6. Mild CAD. PLAN: - SAMI Cardioversion tomorrow. - Will start Eliquis for stroke prophylaxis, he will need this for a total of one month most likely, we can provide with samples. - Continue amiodarone drip. Will switch to PO after SAMI/CV. - Continue BB and ACEI. - Aspirin for life. - Increase PT as tolerated.
--- NOTE | 2017-09-08 20:06 | PDOC.PN ---
- Subjective Encounter Start Date: 09/08/17 Encounter Start Time: 20:05 Subjective: nsg notes rev, yuli ovn, no new c/o, denies any SOB, palpitations, does feel -: a little anxious about pending cardioversion tomorrow - Objective Resuscitation Status: Resuscitation Status FULL:Full Resuscitation Vital Signs & Weight: Vital Signs (12 hours) Temp Pulse Pulse Pulse Resp BP BP 09/08/17 19:16 09/08/17 19:14 65 18 09/08/17 16:00 98.1 F 65 18 09/08/17 13:14 64 59 L 114/66 114/69 09/08/17 12:00 97.4 F L 64 18 09/08/17 11:00 64 18 09/08/17 09:48 77 64 136/69 125/72 BP Pulse Ox Pulse Ox Pulse Ox 09/08/17 19:16 94 L 09/08/17 19:14 94 L 09/08/17 16:00 142/82 H 92 L 09/08/17 13:14 96 95 09/08/17 12:00 131/79 98 09/08/17 11:00 95 09/08/17 09:48 100 93 L Weight Admit Weight 219 lb 9 oz Weight 197 lb 9.6 oz Most Recent Monitor Data Heart Rate from ECG 91 NIBP 93/63 NIBP BP-Mean 72 Respiration from ECG 21 SpO2 91 I&O: 09/07/17 09/08/17 09/09/17 06:59 06:59 06:59 Intake Total 1350 Output Total 1100 Balance 250 Result Diagrams: 09/07/17 04:40 09/09/17 04:58 Phys Exam - Physical Examination Constitutional: NAD HEENT: PERRLA, moist MMs Neurological: moves all 4 limbs Psychiatric: normal affect, A&O x 3 Dx/Plan - Plan acute CHF, systolic EF 30-35% * s/p LHC * apprec card c/s * lasix PO sev AoS * hemodynamically stable, cont to monitor * s/p AVR aflutter * amio IV gtt * apprec card c/s - plan for cardioversion in AM * continue tele L sided pleural effusion * s/p thoracentesis 09/06 * apprec pulm c/s * pending cytology thrombocytopenia, hemodynamically stable, monitor tobacco use, counselled re: cessation diet: cardiac activity: as eric, PT dvt ppx greater than 30 min at bedside answering questions regarding plan of care Review of Systems - Medications/Allergies Allergies/Adverse Reactions: Allergies Allergy/AdvReac Type Severity Reaction Status Date / Time No Known Drug Allergies Allergy Verified 08/26/17 06:42 Medications: Current Medications Acetaminophen (Tylenol) 650 mg PO Q6H PRN PRN Reason: Headache/Fever Or Mild Pain Last Admin: 09/03/17 10:04 Dose: 650 mg Hydrocodone Bitart/Acetaminophen ([place] 5/325) 1 tab PO Q4H PRN PRN Reason: Moderate Pain (4-6) Last Admin: 09/07/17 15:11 Dose: 1 tab Hydrocodone Bitart/Acetaminophen ([place] 5/325) 2 tab PO Q4H PRN PRN Reason: Severe Pain (7-10) Last Admin: 09/09/17 01:05 Dose: 2 tab Acetylcysteine (Acetylcysteine 20%) 600 mg INH [id number] [facility] Last Admin: 09/09/17 07:51 Dose: Not Given Al Hydroxide/Mg Hydroxide (Maalox) 30 ml PO Q4H PRN PRN Reason: Indigestion Albuterol/Ipratropium (Duoneb) 3 ml EZPAP [id number] [facility] Last Admin: 09/09/17 07:50 Dose: Not Given Aspirin (Aspirin) 325 mg PO DAILY [facility] Last Admin: 09/08/17 09:20 Dose: 325 mg Bisacodyl (Dulcolax) 10 mg PO Q12H PRN PRN Reason: Constipation Last Admin: 09/08/17 17:16 Dose: 10 mg Bisacodyl (Dulcolax) 10 mg [place] Q12H PRN PRN Reason: Constipation Carvedilol (Coreg) 3.125 mg PO BID-[facility] Last Admin: 09/08/17 17:16 Dose: 3.125 mg Enoxaparin Sodium (Lovenox) 90 mg SC 0900,2100 [facility] Last Admin: 09/08/17 20:49 Dose: 90 mg Famotidine (Pepcid) 20 mg PO BID [facility] Last Admin: 09/08/17 20:48 Dose: 20 mg Furosemide (Lasix) 40 mg PO 0900,1400 [facility] Last Admin: 09/08/17 15:15 Dose: 40 mg Guaifenesin (Mucinex) 1,200 mg PO Q12HR [facility] Last Admin: 09/08/17 20:48 Dose: 1,200 mg Guaifenesin/Dextromethorphan (Robitussin Dm) 15 ml PO Q4H PRN PRN Reason: Cough Last Admin: 09/07/17 17:38 Dose: 15 ml Amiodarone HCl 450 mg/Miscellaneous Medication 1 each/ Dextrose/Water 259 mls @ 0 mls/hr IVPB INF STELLA; As Directed PRN Reason: Protocol Last Admin: 09/08/17 17:14 Dose: 259 mls Ondansetron HCl (Zofran) 4 mg IVP Q6H PRN PRN Reason: Nausea/Vomiting Last Admin: 09/03/17 04:28 Dose: 4 mg Potassium Chloride (Kcl) 20 meq IVPB PRN PRN PRN Reason: K level </= 4.0 Sodium Chloride (Flush - Normal Saline) 10 ml IVF Q12HR [facility] Last Admin: 09/08/17 20:48 Dose: 10 ml Sodium Chloride (Flush - Normal Saline) 10 ml IVF PRN PRN PRN Reason: Saline Flush Last Admin: 09/04/17 17:23 Dose: 10 ml
[2017-09-08] MEDS: Enoxaparin Sodium 100 MG/ML SYRINGE SC SCH (20:49)
[2017-09-08] MEDS ORDERED: Enoxaparin Sodium 80 MG/0.8 ML SYRINGE SC SCH (21:00)
[2017-09-09] MEDS: ACETYLCYSTEINE INH SCH ×4 (00:38→19:15)
[2017-09-09] MEDS: HYDROcodone/Acetaminophen 5/325 mg Tablet PO PRN ×3 (01:05→19:12)
[2017-09-09 05:52] LABS: Anion Gap 12 mmol/L (10-20); BUN (Urea Nitrogen) 10 mg/dL (8.4-25.7); Calc. Creatinine Clearance 130 mL/min (70-130); Calcium 9.3 mg/dL (7.8-10.44); Carbon Dioxide 33 mmol/L (23-31); Chloride 96 mmol/L (98-107); Estimated GFR-MDRD Greater than 90; Glucose 88 mg/dL (80-115); Potassium 3.8 mmol/L (3.5-5.1); Sodium 137 mmol/L (136-145)
--- NOTE | 2017-09-09 11:01 | ECHO ---
TRANSESOPHAGEAL ECHOCARDIOGRAM: DATE OF PROCEDURE: 09/09/17 INDICATION: 66-year-old gentleman with paroxysmal atrial fibrillation. DESCRIPTION OF PROCEDURE: The patient was taken to the PACU. The patient was sedated by anesthesiology. A transesophageal probe was placed in the distal esophagus and stomach. Echocardiographic images were obtained. The transesophageal probe was removed. FINDINGS: 1. Normal left ventricular systolic function. 2. Prosthetic aortic valve. 3. Mild mitral regurgitation. 4. Mild tricuspid regurgitation. 5. No thrombus in the left atrium or left atrial appendage. 6. Atherosclerotic debris in the descending aorta. IMPRESSION: No formed thrombus in the left atrium or left atrial appendage.
--- NOTE | 2017-09-09 11:10 | OP ---
ELECTROCARDIOVERSION A 66-year-old gentleman with paroxysmal typical atrial flutter. The patient was taken to PACU. The patient was sedated by Anesthesiology. The patient was shocked with 50 joules of synchronized electr icity. The patient converted to normal sinus rhythm.
[2017-09-09] MEDS: Enoxaparin Sodium 100 MG/ML SYRINGE SC SCH ×2 (11:27→20:32)
[2017-09-09] MEDS: Famotidine 20 MG TAB PO SCH ×2 (11:27→20:31)
[2017-09-09] MEDS: Aspirin 325 MG TAB PO SCH (11:28)
[2017-09-09] MEDS: Carvedilol 3.125 MG TAB PO SCH ×2 (11:29→16:30)
[2017-09-09] MEDS: Furosemide 40 MG TAB PO SCH ×2 (11:33→15:26)
[2017-09-09] MEDS: guaiFENesin ER 600 MG TAB PO SCH ×2 (11:33→20:31)
[2017-09-09] MEDS ORDERED: Propofol 200 MG/20 ML VIAL ONE (14:47)
[2017-09-09] MEDS: Amiodarone 200 MG TAB PO SCH (20:31)
--- NOTE | 2017-09-09 23:43 | PDOC.PN ---
- Subjective Encounter Start Date: 09/09/17 Encounter Start Time: 12:00 Subjective: nsg notes rev, yuli ovn, seen s/p cardioversion, no c/o - Objective Resuscitation Status: Resuscitation Status FULL:Full Resuscitation Vital Signs & Weight: Vital Signs (12 hours) Temp Pulse Resp BP Pulse Ox 09/09/17 22:23 94 L 09/09/17 19:17 98.4 F 73 19 133/70 94 L 09/09/17 19:15 75 18 94 L 09/09/17 16:25 98.1 F 71 20 102/59 L 93 L 09/09/17 15:05 71 16 09/09/17 12:30 98.1 F 67 18 118/68 93 L Weight Admit Weight 219 lb 9 oz Weight 194 lb 11.2 oz Most Recent Monitor Data Heart Rate from ECG 91 NIBP 93/63 NIBP BP-Mean 72 Respiration from ECG 21 SpO2 91 I&O: 09/08/17 09/09/17 09/10/17 06:59 06:59 06:59 Intake Total 1350 330 620 Output Total 1100 1250 1650 Balance 250 -920 -1030 Result Diagrams: 09/07/17 04:40 09/10/17 04:31 Phys Exam - Physical Examination Constitutional: NAD HEENT: PERRLA, moist MMs, sclera anicteric Neck: no nodes Respiratory: no wheezing, no rales, no rhonchi Cardiovascular: RRR, no significant murmur, no rub Gastrointestinal: soft, positive bowel sounds Musculoskeletal: no edema, pulses present Neurological: moves all 4 limbs Psychiatric: normal affect, A&O x 3 Dx/Plan - Plan 66M who presented with worsening CHF / acute exacerbation in the setting of critical AoS and underwent Ao valve replacement acute CHF, systolic EF 30-35% * s/p LHC * apprec card c/s * lasix PO sev AoS * hemodynamically stable, cont to monitor * s/p AVR aflutter * amio IV gtt now amio PO * s/p cardioversion * continue tele L sided pleural effusion * s/p thoracentesis 09/06 * apprec pulm c/s * pending cytology thrombocytopenia, hemodynamically stable, monitor tobacco use, counselled re: cessation diet: cardiac activity: as eric, PT dvt ppx If continued stability s/p cardioversion and without continued arrhythmia, t/c discharge planning if cleared by cardiology Review of Systems - Medications/Allergies Allergies/Adverse Reactions: Allergies Allergy/AdvReac Type Severity Reaction Status Date / Time No Known Drug Allergies Allergy Verified 08/26/17 06:42 Medications: Current Medications Acetaminophen (Tylenol) 650 mg PO Q6H PRN PRN Reason: Headache/Fever Or Mild Pain Last Admin: 09/03/17 10:04 Dose: 650 mg Hydrocodone Bitart/Acetaminophen (Coyle 5/325) 1 tab PO Q4H PRN PRN Reason: Moderate Pain (4-6) Last Admin: 09/10/17 02:20 Dose: 1 tab Hydrocodone Bitart/Acetaminophen (Coyle 5/325) 2 tab PO Q4H PRN PRN Reason: Severe Pain (7-10) Last Admin: 09/09/17 19:12 Dose: 2 tab Acetylcysteine (Acetylcysteine 20%) 600 mg INH [id number] [facility] Last Admin: 09/10/17 00:30 Dose: 600 mg Al Hydroxide/Mg Hydroxide (Maalox) 30 ml PO Q4H PRN PRN Reason: Indigestion Albuterol/Ipratropium (Duoneb) 3 ml EZPAP [id number] [facility] Last Admin: 09/10/17 02:15 Dose: Not Given Amiodarone HCl (Cordarone) 200 mg PO BID [facility] Last Admin: 09/09/17 20:31 Dose: 200 mg Aspirin (Aspirin) 325 mg PO DAILY [facility] Last Admin: 09/09/17 11:28 Dose: 325 mg Bisacodyl (Dulcolax) 10 mg PO Q12H PRN PRN Reason: Constipation Last Admin: 09/08/17 17:16 Dose: 10 mg Bisacodyl (Dulcolax) 10 mg VA Q12H PRN PRN Reason: Constipation Carvedilol (Coreg) 3.125 mg PO BID-[facility] Last Admin: 09/09/17 16:30 Dose: 3.125 mg Enoxaparin Sodium (Lovenox) 90 mg SC 0900,2100 [facility] Last Admin: 09/09/17 20:32 Dose: 90 mg Famotidine (Pepcid) 20 mg PO BID [facility] Last Admin: 09/09/17 20:31 Dose: 20 mg Furosemide (Lasix) 40 mg PO 0900,1400 [facility] Last Admin: 09/09/17 15:26 Dose: 40 mg Guaifenesin (Mucinex) 1,200 mg PO Q12HR [facility] Last Admin: 09/09/17 20:31 Dose: 1,200 mg Guaifenesin/Dextromethorphan (Robitussin Dm) 15 ml PO Q4H PRN PRN Reason: Cough Last Admin: 09/07/17 17:38 Dose: 15 ml Ondansetron HCl (Zofran) 4 mg IVP Q6H PRN PRN Reason: Nausea/Vomiting Last Admin: 09/03/17 04:28 Dose: 4 mg Potassium Chloride (Kcl) 20 meq IVPB PRN PRN PRN Reason: K level </= 4.0 Sodium Chloride (Flush - Normal Saline) 10 ml IVF Q12HR [facility] Last Admin: 09/09/17 20:33 Dose: 10 ml Sodium Chloride (Flush - Normal Saline) 10 ml IVF PRN PRN PRN Reason: Saline Flush Last Admin: 09/04/17 17:23 Dose: 10 ml
[2017-09-10] MEDS: ACETYLCYSTEINE INH SCH ×2 (00:30→07:02)
[2017-09-10] MEDS: HYDROcodone/Acetaminophen 5/325 mg Tablet PO PRN ×4 (02:20→17:40)
[2017-09-10 05:43] LABS: Anion Gap 10 mmol/L (10-20); BUN (Urea Nitrogen) 10 mg/dL (8.4-25.7); Calc. Creatinine Clearance 117 mL/min (70-130); Calcium 9.6 mg/dL (7.8-10.44); Carbon Dioxide 35 mmol/L (23-31); Chloride 94 mmol/L (98-107); Estimated GFR-MDRD Greater than 90; Glucose 101 mg/dL (80-115); Potassium 3.6 mmol/L (3.5-5.1); Sodium 135 mmol/L (136-145)
[2017-09-10] MEDS: guaiFENesin ER 600 MG TAB PO SCH (08:14)
[2017-09-10] MEDS: Famotidine 20 MG TAB PO SCH (08:15)
[2017-09-10] MEDS: Amiodarone 200 MG TAB PO SCH (08:15)
[2017-09-10] MEDS: Furosemide 40 MG TAB PO SCH ×2 (08:15→14:00)
[2017-09-10] MEDS: Carvedilol 3.125 MG TAB PO SCH ×2 (08:15→16:19)
[2017-09-10] MEDS ORDERED: Apixaban 5 MG TAB PO SCH (09:00)
--- NOTE | 2017-09-10 10:09 | PRG ---
DATE OF SERVICE: 09/10/2017 This morning he is better. He underwent cardioversion. PHYSICAL EXAMINATION: VITAL SIGNS: Sats are 90% on room air, temperature 98, blood pressure 128/72. CHEST: No wheezing. CARDIAC: Normal S1, S2. ABDOMEN: Soft, no masses. IMPRESSION: 1. Status post thoracentesis. 2. Status post aortic valve replacement. 3. Status post cardioversion. 4. Chronic obstructive pulmonary disease. 5. Bronchitis. PLAN: Patient now only has an albuterol inhaler with a spacer. He is encouraged to use that. He ca n be discharged home. Follow up with Dr. Elizondo in about 3-4 weeks.
--- NOTE | 2017-09-10 11:55 | PDOC.PN ---
- Subjective Encounter Start Date: 09/10/17 Encounter Start Time: 11:54 Patient is seen at bedside. No overnight events, ambulating the halls. No new complaints. - Objective Resuscitation Status: Resuscitation Status FULL:Full Resuscitation MAR Reviewed: Yes Vital Signs & Weight: Vital Signs (12 hours) Temp Pulse Pulse Pulse Resp BP BP 09/10/17 10:33 70 14 09/10/17 08:41 75 58 L 132/70 127/67 09/10/17 08:07 98 F 65 16 09/10/17 07:02 70 14 09/10/17 02:30 98.3 F 72 20 BP Pulse Ox Pulse Ox Pulse Ox 09/10/17 10:33 09/10/17 08:41 95 90 L 09/10/17 08:07 128/72 94 L 09/10/17 07:02 09/10/17 02:30 120/67 Weight Admit Weight 219 lb 9 oz Weight 190 lb 1.6 oz Most Recent Monitor Data Heart Rate from ECG 91 NIBP 93/63 NIBP BP-Mean 72 Respiration from ECG 21 SpO2 91 I&O: 09/09/17 09/10/17 09/11/17 06:59 06:59 06:59 Intake Total 330 1040 Output Total 1250 2450 Balance -920 -1410 Result Diagrams: 09/07/17 04:40 09/10/17 04:31 Phys Exam - Physical Examination Constitutional: NAD HEENT: moist MMs Neck: no JVD Respiratory: clear to auscultation bilateral Cardiovascular: RRR Gastrointestinal: soft Musculoskeletal: pulses present Neurological: moves all 4 limbs Psychiatric: A&O x 3 Deviation from normal: Surgical Scar intact, no erythema, no discharge, no crepitus Dx/Plan (1) Acute exacerbation of CHF (congestive heart failure) Code(s): I50.9 - HEART FAILURE, UNSPECIFIED Status: Acute Qualifiers: Heart failure type: systolic Qualified Code(s): I50.23 - Acute on chronic systolic (congestive) heart failure Comment: Resolved. Started on PO lasix. EF 30-35%. s/p cardiac catheterization. (2) Aortic stenosis, severe Code(s): I35.0 - NONRHEUMATIC AORTIC (VALVE) STENOSIS Status: Acute Comment : s/p AVR. Doing well post op. - Plan cont current plan of care, respiratory therapy, incentive spirometry, DVT proph w/SCDs * Continue with Eliquis. Will need this for at least one month * PO Amiodarone * Continue with Lasix/Coreg/ASA * Start Statin * CM for assistance with medications * Possible D/C today
[2017-09-10 15:58] VITALS: BP 117/65; TEMP 98.3
--- NOTE | 2017-09-10 18:32 | DIS ---
DATE OF ADMISSION: 08/25/2017 DATE OF DISCHARGE: 09/10/2017 DISCHARGE DISPOSITION: Home. DISCHARGE FOLLOWUP: 1. With Dr. Richard in 2 to [address] Whaley in 2-3 weeks. DISCHARGE DIAGNOSES: 1. Acute systolic congestive heart failure exacerbation with an ejection fraction noted to be 30% -3 5%. 2. Severe aortic stenosis, status post aortic valve replacement. 3. Atrial flutter, status post cardioversion. 4. Left-sided pleural effusion, status post thoracentesis on 09/06/2017. DISCHARGE MEDICATIONS: 1. Amiodarone 200 mg p.o. b.i.d. 2. Eliquis 5 mg p.o. b.i.d. 3. Aspirin 81 mg p.o. daily. 4. Coreg 3.125 mg p.o. b.i.d. 5. Lasix 40 mg p.o. b.i.d. 6. Potassium chloride 10 mEq p.o. daily. 7. Simvastatin 20 mg p.o. at bedtime. 8. Tramadol 50 mg p.o. q.8 h. p.r.n. for pain. Please note these are all new medications. His only old medication that he will restart is albuterol rescue inhaler. INPATIENT CONSULTATIONS: 1. Dr. Salinas, Cardiology. 2. Dr. Whaley, Cardiovascular Surgery. 3. Dr. Elizondo, Pulmonary Critical Care. INPATIENT PROCEDURES: 1. Cardiac catheterization, which revealed mild CAD and severe aortic valve stenosis. 2. Thoracentesis on 09/06/2017 at which time 1 liter serosanguineous pleural fluid was evacuated fro m the left chest. The procedure was terminated when he did have some mild pleurisy. 3. Aortic valve replacement performed on 09/02/2017 at which time a bioprosthetic valve was placed. 4. SAMI cardioversion. INPATIENT RADIOGRAPHIC EXAMINATIONS: 1. Echocardiogram on 08/26/2017 which revealed an EF of 30% -35%. There was a large pleural effusio n with heavily calcified valve with decreased cusp opening. 2. A chest x-ray which revealed bilateral pleural fluid and pulmonary vascular congestion. 3. Carotid Dopplers which revealed no evidence of hemodynamically significant stenosis. 4. Chest CT on 09/05/2017 which revealed interval postoperative changes as well as large bilateral p leural effusions. 5. Chest x-ray on 09/06/2017, which revealed bilateral pleural effusions. 6. SAMI which revealed normal left ventricular systolic function. There was no thrombus in left atri um and left atrial appendage and the prosthetic aortic valve. BRIEF HOSPITAL COURSE: Mr. Jaun Sloan is a 66-year-old male who presented to the emergency room com plaining of shortness of breath and leg swelling. When the patient was admitted, he had a BNP of over 2000 and elevated troponin. He received IV Lasix , aspirin, and transdermal nitroglycerin and was subsequently transferred to the telemetry unit. Car diology was consulted for suspicion of new onset CHF exacerbation. The patient underwent a cardiac c atheterization and echocardiogram which revealed a decreased ejection fraction of 30% -35%. His echo cardiogram also additionally revealed severe aortic stenosis. Given his symptoms, it was decided the patient should undergo an aortic valve replacement. He underwent this procedure on 09/02/2017 and t olerated it well. He did have residual pleural effusion at which time this was treated with a therap eutic thoracentesis. The patient was monitored on the telemetry floor thereafter. He was placed on appropriate cardiac medications including aspirin, beta sapna, statin, and a beta sapna. Lisinop ril was not ordered as the patient continued to have cough. After the aortic valve replacement with bioprosthetic valve, the patient had episodes of atrial flutter. He was placed on IV amiodarone. He then underwent a SAMI cardioversion and after which his amiodarone converted to p.o. He was placed o n Eliquis and requires this for at least 1 month. Samples were given. The patient is doing much bet ter thereafter. He has been in normal sinus rhythm and doing much better. He is on the appropriate cardiac medications. He has been ambulating in the halls without any discomfort. The patient is cli nically appropriate for discharge home and will be discharged home later today in stable condition. DISCHARGE DIET: Heart healthy with fluid restriction. ACTIVITY: As tolerated. RESTRICTIONS: None. CODE STATUS: FULL CODE. ALLERGIES: No known drug allergies. I have explained all this to the patient at bedside. All questions have been answered. He is agreea ble to the plan of discharge. Total discharge time 33 minutes.
[2017-09-10] MEDS ORDERED: Simvastatin 20 MG TAB PO SCH (21:00)
== END 2017-09-10 18:08 | disposition home or self-care (01) | DRG 217 ==
LOC: ERS 18:25 → 2NO 19:20 → CCU 09-02 10:06 → 2NO 09-05 12:48
PROVIDERS: ADMIT Internal Medicine; ATTEND Internal Medicine
PROC: 4A023N8 Measurement of Cardiac Sampling and Pressure, Bilateral, Percutaneous Approach (ICD-10-PCS; 2017-08-30)
PROC: B2111ZZ Fluoroscopy of Multiple Coronary Arteries using Low Osmolar Contrast (ICD-10-PCS; 2017-08-30)
PROC: B2161ZZ Fluoroscopy of Right and Left Heart using Low Osmolar Contrast (ICD-10-PCS; 2017-08-30)
PROC: 02RF08Z Replacement of Aortic Valve with Zooplastic Tissue, Open Approach (ICD-10-PCS; principal; 2017-09-02)
PROC: 5A1221Z Performance of Cardiac Output, Continuous (ICD-10-PCS; 2017-09-02)
PROC: B24BZZ4 Ultrasonography of Heart with Aorta, Transesophageal (ICD-10-PCS; 2017-09-02)
PROC: 0W9B3ZX Drainage of Left Pleural Cavity, Percutaneous Approach, Diagnostic (ICD-10-PCS; 2017-09-06)
PROC: 5A2204Z Restoration of Cardiac Rhythm, Single (ICD-10-PCS; 2017-09-09)
PROC: B24BZZ4 Ultrasonography of Heart with Aorta, Transesophageal (ICD-10-PCS; 2017-09-09)
DX: I50.23 Acute on chronic systolic (congestive) heart failure (principal); I24.8 Other forms of acute ischemic heart disease; J90 Pleural effusion, not elsewhere classified; D69.6 Thrombocytopenia, unspecified; I08.3 Combined rheumatic disorders of mitral, aortic and tricuspid valves; I48.3 Typical atrial flutter; I47.1 Supraventricular tachycardia; J98.11 Atelectasis; J44.9 Chronic obstructive pulmonary disease, unspecified; F17.210 Nicotine dependence, cigarettes, uncomplicated; I25.10 Atherosclerotic heart disease of native coronary artery without angina pectoris
CPT/HCPCS: 36415; 36416; 36430; 71045; 71046; 71250; 80048; 80053; 80061; 80074; 82805; 82945; 83615; 83735; 83880; 84157; 85007; 85025; 85027; 85347; 85610; 85730; 86850; 86900; 86901; 88112; 88305; 92960; 93005; 93010; 93306; 93312; 93460; 93798; 93880; 94002; 94150; 94640; 94760; 99152; 99153; 99285; A4216; C1769; J0282; J0690; J1160; J1642; J1644; J1650; J1815; J1885; J1940; J2001; J2250; J2260; J2405; J2704; J2720; J3010; J3370; J3475; J3480; J7050; J7070; J7506; J7608; J7620; P9045; S0028

== ENCOUNTER 2018-08-15 15:24 | Inpatient (IN) | payer MEDICARE, OTHER ==
--- NOTE | 2018-08-15 16:07 | RAD ---
CHEST 1 VIEW: Date: 08/15/18 HISTORY: Dyspnea. COMPARISON: Radiograph dated 09/07/17. FINDINGS: Heart size mildly enlarged. Mild scarring lung bases. No pneumothorax or large effusion. Multiple mid line sternotomy wires. Aortic valve replacement is present. IMPRESSION: Chronic findings. No acute intrathoracic abnormality. POS: [facility]
[2018-08-15 16:16] LABS: Hemoglobin 11.5 g/dL (14.0-18.0); Mean Corpuscular HGB CONC 33.4 g/dL (32.0-36.0); Mean Corpuscular Hemoglobin 33.3 pg (27.0-31.0); Mean Corpuscular Volume 99.7 fL (78.0-98.0); Mean Platelet Volume 7.5 fL (7.4-10.4); Platelet Count 154 thou/uL (130-400); RBC Distribution Width 12.5 % (11.5-14.5); Red Blood Cell (RBC) Count 3.45 mill/uL (4.70-6.10); White Blood Cell (WBC) Count 11.4 thou/uL (4.8-10.8)
[2018-08-15 16:28] LABS: ALT (SGPT) 121 U/L (8-55); AST (SGOT) 239 U/L (5-34); Albumin 3.1 g/dL (3.4-4.8); Alkaline Phosphatase 82 U/L (40-150); Anion Gap 15 mmol/L (10-20); BUN (Urea Nitrogen) 13 mg/dL (8.4-25.7); Bilirubin, Total 2.3 mg/dL (0.2-1.2); CK (CPK) 418 U/L (30-200); Calc. Creatinine Clearance 0 mL/min (70-130); Calcium 8.3 mg/dL (7.8-10.44); Carbon Dioxide 23 mmol/L (23-31); Chloride 84 mmol/L (98-107); Estimated GFR-MDRD 72; Globulin 1.8 g/dL (2.4-3.5); Glucose 120 mg/dL (80-115); Lipase 43 U/L (8-78); Potassium 4.5 mmol/L (3.5-5.1); Protein, Total 4.9 g/dL (5.8-8.1)
[2018-08-15 16:32] LABS: Sodium 117 mmol/L (136-145)
[2018-08-15 16:39] LABS: Band 13 % (5-11); Lymphocytes 3 % (21-51); MDiff Complete? YES; Monocytes 3 % (0-10); Neutrophil 81 % (42-75); Platelet Morphology Comment Appears Adequate
[2018-08-15] MEDS ORDERED: Acetaminophen 325 MG TAB ONE (18:13)
[2018-08-15] MEDS ORDERED: Ondansetron ODT 4 MG TAB SL PRN (19:34)
[2018-08-15] MEDS ORDERED: Sodium Chloride 0.9% 1,000 ML IV SCH (19:34)
[2018-08-15] MEDS ORDERED: Ondansetron PF 4 MG/2 ML Vial IVP PRN (19:34)
[2018-08-15 19:59] VITALS: BMI 27.3
[2018-08-15] MEDS ORDERED: PROVENTIL INHALER 6.7 G (200 INHALATIONS) INH PRN (21:35)
[2018-08-15] MEDS: Sodium Chloride 0.9% 1,000 ML IV SCH (21:54)
[2018-08-15 22:31] LABS: Creatinine, Urine 150.93 mg/dL (63-166); Potassium, Urine 42.8 mmol/L; Sodium, Urine Less than 20 mmol/L (Not Available)
[2018-08-15] MEDS: Amiodarone 200 MG TAB PO SCH (22:54)
[2018-08-15] MEDS: Apixaban 5 MG TAB PO SCH (22:55)
[2018-08-16] MEDS: Acetaminophen 325 MG TAB PO PRN ×3 (00:56→17:23)
[2018-08-16 01:11] LABS: Bilirubin Moderate (Negative); Blood, Urine Moderate (Negative); Glucose, Urine (Dipstick) Negative (Negative); Leukocyte Negative (Negative); Nitrite Negative (Negative); Protein, Urine (Dipstick) 30 mg/dL (Neg-Trace)
[2018-08-16 01:28] LABS: Clarity Hazy (Clear)
[2018-08-16 01:29] LABS: Urine Culture Reflex No No
[2018-08-16 01:31] LABS: Anion Gap 15 mmol/L (10-20); BUN (Urea Nitrogen) 14 mg/dL (8.4-25.7); Calc. Creatinine Clearance 93 mL/min (70-130); Calcium 8.5 mg/dL (7.8-10.44); Carbon Dioxide 21 mmol/L (23-31); Chloride 87 mmol/L (98-107); Estimated GFR-MDRD 81; Glucose 115 mg/dL (80-115)
[2018-08-16 01:33] LABS: Bacteria/HPF None Seen HPF (None Seen); Hyaline Casts/LPF 0-3 HYALINE CAST LPF (0-3 Hyaline); Renal Epithelial None Seen HPF (0-3); Transitional Epithelial NONE SEEN HPF (0-3); WBC/HPF 21-50 HPF (0-3); Yeast-All Forms None Seen HPF (None Seen)
[2018-08-16 01:37] LABS: Sodium 119 mmol/L (136-145)
[2018-08-16 01:42] LABS: Band 21 % (5-11); Hemoglobin 11.9 g/dL (14.0-18.0); Lymphocytes 4 % (21-51); MDiff Complete? YES; Mean Corpuscular HGB CONC 33.3 g/dL (32.0-36.0); Mean Corpuscular Volume 99.2 fL (78.0-98.0); Mean Platelet Volume 7.6 fL (7.4-10.4); Neutrophil 75 % (42-75); Platelet Count 145 thou/uL (130-400); RBC Distribution Width 12.6 % (11.5-14.5); White Blood Cell (WBC) Count 13.7 thou/uL (4.8-10.8)
[2018-08-16] MEDS ORDERED: Ibuprofen 200 MG TAB PO SCH (02:30)
[2018-08-16] MEDS ORDERED: Piperacillin/Tazobactam 4.5 GM in Sodium Chloride 0.9% 100 ML IVPB SCH (02:30)
[2018-08-16] MEDS ORDERED: Vancomycin HCl 1 GM in Premix Bag 1 BAG IVPB SCH (02:30)
[2018-08-16 07:33] LABS: Anion Gap 13 mmol/L (10-20); BUN (Urea Nitrogen) 15 mg/dL (8.4-25.7); Calc. Creatinine Clearance 95 mL/min (70-130); Calcium 8.3 mg/dL (7.8-10.44); Carbon Dioxide 21 mmol/L (23-31); Chloride 89 mmol/L (98-107); Estimated GFR-MDRD 84; Glucose 110 mg/dL (80-115); Potassium 3.5 mmol/L (3.5-5.1)
--- NOTE | 2018-08-16 07:33 | CT ---
CT OF THE BRAIN WITHOUT CONTRAST: INDICATION: History of fall with new onset confusion. COMPARISON: None. FINDINGS: Mild motion artifact slightly limits image detail. No definite acute infarct, hemorrhage, or hydrocephalus is present. The septum pellucidum and third ventricle are midline. The skull and extracranial soft tissues are normal-appearing. IMPRESSION: No acute intracranial abnormality. POS: [facility]
[2018-08-16 07:36] LABS: Sodium 119 mmol/L (136-145)
--- NOTE | 2018-08-16 07:44 | HP ---
PRIMARY CARE DOCTOR: The patient has no PCP reported. He goes to [facility]. CODE STATUS: Full code. TIME OF EVALUATION: 10:00 p.m. CHIEF COMPLAINT: Cough, nausea, and shortness of breath. HISTORY OF PRESENT ILLNESS: This is a 67-year-old male patient with past medical history of congestive heart failure, came to the hospital after feeling generalized weakness. No clear triggers, no alleviating factors. Symptoms have been present for the past week with no improvement, he feels very weak. Also reported subjective fever and chills. Symptoms were severe. Additionally, he was found to have hyponatremia with sodium 117, reported this is the first time this happened to him. The patient does not have significant symptoms. The patient received Code Green for sepsis while in the floor, we found that the patient had a positive urine, we will treat with broad-spectrum antibiotics. We will also treat the hyponatremia. Dr. Rashid has been consulted. REVIEW OF SYSTEMS: CONSTITUTIONAL: Chills, fatigue, fever. RESPIRATORY: cough, shortness of breath. No sputum production. CARDIOVASCULAR: No chest pain or palpitation. GASTROINTESTINAL: The patient had nausea. No vomiting, diarrhea, or abdominal pain. MECHANIC WELDER: The patient felt dizzy, lightheaded, occasional hallucinations. No headache. GENITOURINARY: No burning on urination. EXTREMITIES: No leg swelling. All other systems were reviewed and negative except for the findings mentioned above. PAST MEDICAL HISTORY: Positive for congestive heart failure and aortic valve replacement. PAST SURGICAL HISTORY: Positive for aortic valve replacement. PSYCHIATRIC HISTORY: No previous psych history. FAMILY HISTORY: Reviewed and non contributory for current presentation. SOCIAL HISTORY: The patient drinks socially. No drugs. Currently use tobacco, smokes cigarettes daily. Lives at home alone. KNOWN ALLERGIES: No known drug allergies reported. MEDICATIONS: 1. Carvedilol. 2. Tramadol. 3. Lisinopril. 4. Eliquis. 5. Furosemide. 6. Amiodarone. 7. Simvastatin. 8. Aspirin. PHYSICAL EXAMINATION: VITAL SIGNS: On presentation, blood pressure 103/48 with heart rate 65, respiratory rate was 18, temperature 100.1, oxygen saturation was 98 on room air. GENERAL APPEARANCE: The patient is alert, occasionally disoriented, not in acute distress. HEENT: Eyes; normal conjunctivae. Moist oral mucosa. Anicteric. No JVD. RESPIRATORY: Bilateral air entry. The patient has scattered rales. No wheezing. Symmetric expansion. CARDIOVASCULAR: Normal rate, regular rhythm. No murmurs. No gallops. No edema. ABDOMEN: Soft. Normal bowel sounds. MUSCULOSKELETAL: Baseline range of motion and strength noted. SKIN: Little warm. The patient occasionally febrile. No pallor. No rash. No redness. Peripheral pulses are present. Capillary refill seems to be intact. NEURO: No evidence of any new focal weakness. Baseline speech. Cranial nerves seems to be intact. PSYCH: The patient is in good mood. No anxiety. Optimal judgment. DIAGNOSTIC STUDIES: EKG showed first-degree AV block, left axis deviation, LBBB. Chest x-ray was reviewed. The patient has chronic finding. No acute intrathoracic abnormalities. The brain CT was done because the patient had a fall. Official report is pending, was reviewed by myself. No evidence of any acute abnormalities. Official report from Radiology needs to be followed. LABORATORY DATA: Labs were reviewed. The patient has a white count of 11.4, done on 08/10. Hemoglobin 11.5, MCV 99.7, platelet count 154. Sodium 117, the repeat 119 ; potassium 4.5, chloride 84, glucose 120. Serum osmolality 251. Total bilirubin 2.3, AST 239 with ALT 121. CK 419. Beta natriuretic peptide 219. Serum total protein 4.9, albumin 3.1, globulin 1.8, lipase 43. UA was reviewed. The patient has a white count of 21 to 50. ASSESSMENT AND PLAN: The patient will be placed in the hospital with following medical problems: 1. Sepsis. The patient has fever, tachycardia, Code Green was activated due to sepsis as per sepsis protocol. The patient was found to have urinary tract infection, receiving broad-spectrum antibiotics, and we will follow cultures, adjust treatment as needed. 2. Hyponatremia that is severe with sodium 117. The patient presented with no significant symptoms. This seems to be chronic. I spoke with Dr. Rashid. We will continue NS at 50 mL an hour and we will monitor the sodium. We will aim for a correction of 6 mEq in the first 24 hours; seems to be correcting properly at this point, we will follow Dr. Rashid's recommendations. 3. Underlying congestive heart failure, the patient has a beta natriuretic peptide of 219. The patient presented with hypotension at the very beginning of the shift, had received hydration due to severe sepsis; however, chest x-ray, especially the repeat one on the Code Green was negative for pulmonary edema. We will continue to monitor, we will adjust treatment depending on the patient's clinical course. Until we find a right fluid balance, the patient needs hydration for hyponatremia and for sepsis, and also we need to be cautious due to underlying congestive heart failure and elevated BNP. 4. Urinary tract infection, positive UA causing sepsis. Treatment as above. 5. Deep venous thrombosis prophylaxis. The patient is on Eliquis due to atrial fibrillation. 6. Atrial fibrillation, rate is controlled, sinus rhythm. We will reconcile home medications. Job ID: [id number] MTDD
--- NOTE | 2018-08-16 08:05 | RAD ---
SINGLE VIEW OF THE CHEST: COMPARISON: 08/15/2018. HISTORY: Confusion and hypoxia. FINDINGS: A single view of the chest shows a normal-size cardiomediastinal silhouette. The patient is status p ost sternotomy for aortic valve repair. There is no evidence of consolidation, mass, or pleural effu jose. IMPRESSION: No evidence of acute cardiopulmonary disease. POS: [facility]
[2018-08-16] MEDS ORDERED: Enoxaparin Sodium 40 MG/0.4 ML SYRINGE SC SCH (09:00)
[2018-08-16] MEDS: Amiodarone 200 MG TAB PO SCH ×2 (09:03→21:07)
[2018-08-16] MEDS: Piperacillin/Tazobactam 4.5 GM in Sodium Chloride 0.9% 100 ML IVPB SCH ×2 (09:03→17:21)
[2018-08-16] MEDS: Aspirin Chewable 81 MG TAB PO SCH (09:03)
[2018-08-16] MEDS: Apixaban 5 MG TAB PO SCH ×2 (09:03→21:06)
[2018-08-16 12:19] LABS: Potassium 3.8 mmol/L (3.5-5.1)
[2018-08-16 12:25] LABS: Anion Gap 14 mmol/L (10-20); BUN (Urea Nitrogen) 15 mg/dL (8.4-25.7); Calc. Creatinine Clearance 100 mL/min (70-130); Calcium 8.1 mg/dL (7.8-10.44); Carbon Dioxide 21 mmol/L (23-31); Chloride 90 mmol/L (98-107); Estimated GFR-MDRD 88; Glucose 121 mg/dL (80-115); Potassium 3.8 mmol/L (3.5-5.1); Sodium 121 mmol/L (136-145)
--- NOTE | 2018-08-16 14:00 | ULT ---
ULTRASOUND GALLBLADDER RIGHT UPPER QUADRANT: HISTORY: Right upper quadrant pain. COMPARISON: None. FINDINGS: Real-time, white scale, color evaluation right upper quadrant abdomen was performed. Visualized portions of the pancreas are unremarkable. Increased hepatic echotexture. Gallbladder has trace pericholecystic fluid. Portal vein is patent with antegrade flow. Common bile duct measures 4 mm, normal. The liver measur es 17.3 cm in length. The right kidney measures 13.2 x 6.5 x 5.8 cm without mass, hydronephrosis, or abnormal calcification s. No cholelithiasis is appreciated. IMPRESSION: 1. Diffusely increased hepatic echotexture suggesting steatosis. 2. No evidence for cholecystitis. POS: [facility]
[2018-08-16] MEDS: Vancomycin HCl 1.25 GM in Sodium Chloride 0.9% 250 ML 250 ML IVPB SCH (15:02)
[2018-08-16] MEDS: Sodium Chloride 0.9% 1,000 ML IV SCH ×2 (15:38→18:27)
[2018-08-16 16:00] LABS: Anion Gap 12 mmol/L (10-20); BUN (Urea Nitrogen) 14 mg/dL (8.4-25.7); Calc. Creatinine Clearance 119 mL/min (70-130); Calcium 8.2 mg/dL (7.8-10.44); Carbon Dioxide 23 mmol/L (23-31); Chloride 90 mmol/L (98-107); Estimated GFR-MDRD Greater than 90; Glucose 112 mg/dL (80-115); Potassium 3.8 mmol/L (3.5-5.1); Sodium 121 mmol/L (136-145)
[2018-08-16] MEDS: Simvastatin 20 MG TAB PO SCH (21:06)
--- NOTE | 2018-08-16 21:15 | CON ---
DATE OF CONSULTATION: 08/16/2018 REASON FOR CONSULTATION: Hyponatremia. REASON FOR ADMISSION: Cough. HISTORY OF PRESENT ILLNESS: A 67-year-old male with a history of congestive heart failure came to the hospital with the above complaints and was found to have hyponatremia with a sodium of 117, Nephrology is consulted. The patient is started on IV fluids and his sodium is 121. No fever or chills. No nausea or vomiting. PAST MEDICAL HISTORY: Positive for congestive heart failure PAST SURGICAL HISTORY: Aortic valve replacement. HOME MEDICATIONS: 1. Carvedilol. 2. Tramadol. 3. Lisinopril. 4. Eliquis. 5. Furosemide. 6. Amiodarone. 7. Simvastatin. 8. Aspirin. ALLERGIES: NO KNOWN DRUG ALLERGIES. SOCIAL HISTORY: No smoking, alcohol, or illicit drug abuse. FAMILY HISTORY: No history of any kidney disease. REVIEW OF SYSTEMS: CONSTITUTIONAL: Negative for weight loss or gain, ability to conduct usual activities. SKIN: Negative for rash, itching. EYES: Negative for double vision, pain. ENT/MOUTH: Negative for nose bleeding, neck stiffness, pain, tenderness. CARDIOVASCULAR: Negative for palpitations, dyspnea on exertion, orthopnea. RESPIRATORY: Negative for shortness of breath, wheezing, cough, hemoptysis, fever or night sweats. GASTROINTESTINAL: Negative for poor appetite, abdominal pain, heartburn, nausea, vomiting, constipation, or diarrhea. GENITOURINARY: Negative for urgency, frequency, dysuria, nocturia. MUSCULOSKELETAL: Negative for pain, swelling. NEUROLOGIC/PSYCHIATRIC: Negative for anxiety, depression. ALLERGY/IMMUNOLOGIC: Negative for skin rash, bleeding tendency. PHYSICAL EXAMINATION: GENERAL: Reveals a well-built male, in no apparent distress. VITAL SIGNS: Temperature 97.3, pulse 67, respirations 16, blood pressure 147/70. HEENT: Atraumatic and normocephalic. Oral mucosa is moist. NECK: Supple. CVS: S1 and S2 heard. Rate and rhythm regular. RESPIRATORY: Clear. GASTROINTESTINAL: Abdomen is soft. MUSCULOSKELETAL: No tenderness. No edema. DERMATOLOGIC: No skin rash. NEUROLOGIC: Alert and awake. PSYCHIATRIC: Normal mood and affect. LABORATORY DATA: Sodium 121, potassium is 3.8, BUN is 14, creatinine is 0.7. ASSESSMENT AND PLAN: 1. Hyponatremia, most likely hypovolemia. We will increase IV fluids. 2. Hypochloremia. 3. Edema, controlled. We will hold diuretics. 4. Hypertension, stable. We will continue to follow. Monitor sodium closely. Thank you for the consult. Job ID: [id number]
--- NOTE | 2018-08-16 21:23 | PDOC.PN ---
- Subjective Encounter Start Date: 08/16/18 Encounter Start Time: 09:00 Still generally weak. No new complaints. - Objective Resuscitation Status - Order Detail: 08/15/18 21:36 Resuscitation Status Routine Resuscitation Status: FULL: Full Resuscitation Vital Signs & Weight: Vital Signs (12 hours) Temp Pulse Resp BP Pulse Ox 08/16/18 16:06 97.5 F L 62 20 141/75 H 99 Weight Weight 183 lb 4.8 oz I&O: 08/15/18 08/16/18 08/17/18 06:59 06:59 06:59 Intake Total 1455 800 Output Total 350 550 Balance 1105 250 Result Diagrams: 08/16/18 01:05 08/16/18 15:25 Additional Labs: Accuchecks 08/16/18 02:20 POC Glucose 101 Phys Exam - Physical Examination Constitutional: NAD Respiratory: no wheezing, no rales Cardiovascular: RRR, no rub I/ M Gastrointestinal: soft, non-tender, no distention Musculoskeletal: no edema Psychiatric: normal affect Deviation from normal: Slightly confused at times. Dx/Plan (1) Sepsis Code(s): A41.9 - SEPSIS, UNSPECIFIED ORGANISM Status: Acute (2) Hyponatremia Code(s): E87.1 - HYPO-OSMOLALITY AND HYPONATREMIA Status: Acute (3) UTI (urinary tract infection) Status: Acute (4) Transaminitis Code(s): R74.0 - NONSPEC ELEV OF LEVELS OF TRANSAMNS & LACTIC ACID DEHYDRGNSE Status: Acute (5) Aortic valve replaced Code(s): Z95.2 - PRESENCE OF PROSTHETIC HEART VALVE Status: Acute - Plan * Equivocal evidence for UTI. CXR negative. Not sure we have the source of the fever yet. * Has transaminitis. US of Liver. * Continue abx. * * Blood cultures turned positive in the evening. Looks like strep. Should be covered by the [facility]. Will likely need SAMI to look for endocarditis.
[2018-08-17] MEDS: Piperacillin/Tazobactam 4.5 GM in Sodium Chloride 0.9% 100 ML IVPB SCH ×3 (02:46→17:59)
[2018-08-17] MEDS: Vancomycin HCl 1.25 GM in Sodium Chloride 0.9% 250 ML 250 ML IVPB SCH ×2 (03:30→15:23)
[2018-08-17] MEDS: Sodium Chloride 0.9% 1,000 ML IV SCH ×2 (04:15→11:02)
[2018-08-17 06:43] LABS: ALT (SGPT) 161 U/L (8-55); AST (SGOT) 296 U/L (5-34); Albumin 2.6 g/dL (3.4-4.8); Alkaline Phosphatase 94 U/L (40-150); Anion Gap 11 mmol/L (10-20); BUN (Urea Nitrogen) 14 mg/dL (8.4-25.7); Bilirubin, Total 2.6 mg/dL (0.2-1.2); Calc. Creatinine Clearance 130 mL/min (70-130); Calcium 8.2 mg/dL (7.8-10.44); Carbon Dioxide 25 mmol/L (23-31); Chloride 92 mmol/L (98-107); Estimated GFR-MDRD Greater than 90; Globulin 2.5 g/dL (2.4-3.5); Glucose 104 mg/dL (80-115); Protein, Total 5.1 g/dL (5.8-8.1); Sodium 124 mmol/L (136-145)
[2018-08-17 06:54] LABS: Band 11 % (5-11); Eosinophils 1 % (0-10); Hemoglobin 11.8 g/dL (14.0-18.0); Lymphocytes 3 % (21-51); MDiff Complete? YES; Mean Corpuscular HGB CONC 32.7 g/dL (32.0-36.0); Mean Corpuscular Hemoglobin 32.8 pg (27.0-31.0); Mean Platelet Volume 8.4 fL (7.4-10.4); Monocytes 7 % (0-10); Neutrophil 78 % (42-75); Platelet Count 129 thou/uL (130-400); Red Blood Cell (RBC) Count 3.59 mill/uL (4.70-6.10); White Blood Cell (WBC) Count 15.4 thou/uL (4.8-10.8)
[2018-08-17] MEDS: Aspirin Chewable 81 MG TAB PO SCH (08:38)
[2018-08-17] MEDS: Apixaban 5 MG TAB PO SCH ×2 (08:38→20:37)
[2018-08-17] MEDS: Amiodarone 200 MG TAB PO SCH ×2 (08:39→20:37)
--- NOTE | 2018-08-17 13:00 | PDOC.PN ---
- Subjective Encounter Start Date: 08/17/18 Encounter Start Time: 11:30 Doing well, feeling better. Admits to having some cough as of today. Denies any recent skin infections. Denies dental concerns. Denies IV drug use. - Objective Resuscitation Status - Order Detail: 08/15/18 21:36 Resuscitation Status Routine Resuscitation Status: FULL: Full Resuscitation Vital Signs & Weight: Vital Signs (12 hours) Temp Pulse Resp BP Pulse Ox 08/17/18 08:00 98.8 F 68 16 165/86 H 95 08/17/18 03:55 98.2 F 70 18 158/84 H 92 L Weight Weight 184 lb 12.8 oz I&O: 08/16/18 08/17/18 08/18/18 06:59 06:59 06:59 Intake Total 1455 2112 Output Total 350 1100 450 Balance 1105 1012 -450 Result Diagrams: 08/17/18 05:47 08/17/18 05:47 Phys Exam - Physical Examination Constitutional: NAD Some dental caries. No specific inflammation. Neck: no nodes, no JVD Respiratory: no wheezing Mild bibasilar rales. Cardiovascular: RRR I-II/ M RUSB. Gastrointestinal: soft, non-tender, no distention, positive bowel sounds Musculoskeletal: no edema, pulses present Neurological: non-focal Skin: no rash, normal turgor Deviation from normal: No significant lesions. Dx/Plan (1) Sepsis Code(s): A41.9 - SEPSIS, UNSPECIFIED ORGANISM Status: Resolved (2) Hyponatremia Code(s): E87.1 - HYPO-OSMOLALITY AND HYPONATREMIA Status: Acute (3) UTI (urinary tract infection) Status: Acute (4) Transaminitis Code(s): R74.0 - NONSPEC ELEV OF LEVELS OF TRANSAMNS & LACTIC ACID DEHYDRGNSE Status: Acute (5) Aortic valve replaced Code(s): Z95.2 - PRESENCE OF PROSTHETIC HEART VALVE Status: Acute Comment: Bioprosthetic valve placed at [facility] 09/12. (6) Streptococcal bacteremia Code(s): R78.81 - BACTEREMIA; B95.5 - UNSP STREPTOCOCCUS THE CAUSE OF DISEASES CLASSD ELSWHR Status: Acute - Plan * Has strep bacteremia. Unclear source. * equivocal evidence of UTI. * Repeat CXR. * Echo, Cardiology consult. * ID consult. * Continue IV Vanc. * Does not have significant murmur. No evidence of decompensation of the AoV. Fever is already improving. * [facility] [place].
[2018-08-17 15:03] LABS: Vancomycin, Trough 9.3 ug/mL
--- NOTE | 2018-08-17 15:14 | RAD ---
TWO VIEWS CHEST: Date: 08-17-18 Provided Clinical History: Fever. FINDINGS: Comparison 08-16-18. Cardiac silhouette is within normal limits. Median sternotomy changes are seen. Blunting of the poste rior costophrenic angles bilaterally likely reflect small amount of pleural fluid. No focal airspace disease or pneumothorax apparent. Prosthetic cardiac valve redemonstrated. IMPRESSION: Findings suggesting small bilateral pleural effusions. POS: [facility]
[2018-08-17] MEDS: Vancomycin HCl 1.75 GM in Sodium Chloride 0.9% 500 ML IVPB SCH (16:24)
--- NOTE | 2018-08-17 17:41 | PRG ---
DATE OF SERVICE: 08/17/2018 SUBJECTIVE: Patient was seen and examined at bedside and overnight events noted. Patient denies any shortness of breath or chest pain or palpitation. No history of nausea or vomiting or diarrhea or fever or chills or cramps. OBJECTIVE: GENERAL: This is a well-built male, in no acute distress. VITAL SIGNS: Temperature 98.2. Heart rate 87. Respiratory rate 21. Blood pressure 131/74. HEENT: Atraumatic, normocephalic. Oral mucosa is moist NECK: Supple. CARDIOVASCULAR: S1, S2 heard. Rate and rhythm regular. RESPIRATORY: Clear to auscultation. GASTROINTESTINAL: Abdomen is soft. MUSCULOSKELETAL: No tenderness. No edema. DERMATOLOGIC: No skin rash. NEUROLOGIC: Alert and awake and oriented X3. No focal neurologic deficits. Moving all the extremities. PSYCHIATRIC: Mood and affect normal. LABORATORY DATA: Potassium 4.0, sodium is 124, BUN 14, creatinine 0.6. ASSESSMENT AND PLAN: 1. Hyponatremia, on IV fluids. 2. Hypochloremia 3. Edema 4. Hypertension Job ID: [id number] [facility]
--- NOTE | 2018-08-17 17:45 | CT ---
CT OF THE THORAX WITHOUT IV CONTRAST 08/17/18 INDICATION: History of abnormal lung examination on chest radiograph as well as shortness of breath. COMPARISON: Chest radiograph dated 08/17/[address] dated 09/05/17. FINDINGS: There is patchy areas of air space consolidation and reticular nodularity within the left lower lobe. There are tiny bilateral pleural effusions. There is some subsegmental volume loss within the right lung base as well as portions of the lingula. Small subpleural pulmonary nodules seen within the lowe r lingula on image 45, series 3 which is new measuring approximately 7 mm. Small subpleural pulmonary nodule is again seen involving the anterior middle lobe on image 41 of series 3. There is some patch y reticular nodularity now present within the posterior segment of the right upper lobe. There is an aortic valvular prosthesis in place. There are coronary artery and thoracic aortic calcifications. No pathologically enlarged lymph nodes grossly evident. The subcarinal lymph node is mildly prominent m easuring 1.2 cm. The visualized upper abdomen reveals no definite acute abnormality. No definite acute osseous abnorma lity is noted. IMPRESSION: 1. Findings suspicious for multifocal pneumonia. There are patchy areas of air space consolidati on within the left lower lobe with patchy reticular nodularity within the right upper lobe. 2. There are small bilateral pleural effusions. This may be reactive in nature. Recommend CT fol lowup. 3. New 7 mm lingular pulmonary nodule requiring CT followup. 4. Aortic valvular prosthesis. POS: [facility]
--- NOTE | 2018-08-17 19:04 | CON ---
DATE OF CONSULTATION: 08/17/2018 REASON FOR CONSULTATION: Aortic valve replacement with bacteremia. HISTORY OF PRESENT ILLNESS: Mr. Sloan is a very pleasant 67-year-old white gentleman, who comes to the hospital for cough, nausea, and shortness of breath. He was admitted, found to have positive cultures for strep pneumo. He was also admitted for sodium of 117 that improved after IV fluids. He was diagnosed with strep pneumoniae bacteremia, possibly a pneumonia. He has been receiving fluids and his sodium is already better. Cardiology is being consulted as there is concern possible endocarditis. PAST MEDICAL HISTORY: 1. History of systolic dysfunction in the past. Normalized EF more recently. 2. Severe aortic stenosis status post bioprosthetic aortic valve replacement. 3. Paroxysmal atrial fibrillation. PAST SURGICAL HISTORY: Bioprosthetic aortic valve replacement. No bypass was needed. SOCIAL HISTORY: No drugs. Social alcohol use. Daily tobacco use, 5 cigarettes a day. OUTPATIENT MEDICATIONS: Include; 1. Tramadol p.r.n. 2. Albuterol inhaler. 3. Carvedilol 6.25 b.i.d. 4. Simvastatin 20 mg at bedtime. 5. Lisinopril 5 mg b.i.d. 6. Aspirin 81 a day. 7. Eliquis 5 mg b.i.d. 8. Amiodarone 200 mg b.i.d. REVIEW OF SYSTEMS: A 12-point review of systems was done and was found to be negative unless stated in the history of present illness. PHYSICAL EXAMINATION: VITAL SIGNS: Temperature 98.2, pulse 69, respiratory rate 20, saturating 93% on room air, and blood pressure 153/81. GENERAL: Awake and alert x3, in no distress. HEENT: Normocephalic and atraumatic. NECK: Supple. LUNGS: Clear. CARDIOVASCULAR: S1 and S2. No S3 or S4. There is a grade 2/6 systolic murmur at the right upper sternal border, unchanged from recent visit in the clinic. ABDOMEN: Soft. Positive bowel sounds. EXTREMITIES: No edema. SKIN: Warm and dry. LABORATORY DATA: Laboratory work was reviewed. CBC with a white count of 15, hemoglobin of 11, hematocrit of 36, and platelet count of 129. Chemistry; sodium was 119 on arrival up to 124, total bilirubin of 2.6, AST and ALT are high, alkaline phosphatase was 94, and albumin of 2.6. UA unremarkable. Blood cultures are positive for strep pneumo. Nasal swab for influenza was negative for both A and B. He recently had flu shot. ASSESSMENT: 1. Strep pneumoniae bacteremia. 2. Bioprosthetic aortic valve about a years ago. PLAN: 1. We will do transthoracic echocardiogram. I do not hear any obvious worsening of his murmur on his aortic valve focus. Would see the valve with a transthoracic echo and if it is unchanged, would recommend long course of antibiotics until blood cultures become negative pending evaluation by Dr. Kelly. 2. If there is any question on the transthoracic echo, we will plan on doing transesophageal echo at that time. Thank you for letting me to participate in the care of your patient. We will follow. Job ID: [id number]
[2018-08-17] MEDS: Simvastatin 20 MG TAB PO SCH (20:37)
--- NOTE | 2018-08-17 22:08 | CON ---
DATE OF CONSULTATION: 08/17/2018 REASON FOR CONSULTATION: Bacteremia. HISTORY OF PRESENT ILLNESS: This is a 67-year-old, history of severe aortic stenosis with recent porcine aortic valve replacement following aortic valve replacement. The patient had an atrial flutter and required IV amiodarone and SAMI cardioversion. His EF ejection fraction improved markedly following the valve replacement and he started feeling ill after influenza vaccine, which was given a week before admission, developed then generalized weakness with fever and some cough with sputum production, which was yellow. He was brought to the emergency room and admitted. He was with sepsis, was given broad-spectrum coverage and now 2 sets of blood cultures with Streptococcus pneumoniae. He is feeling better, but still not back to normal. No headaches, visual symptoms, sore throat, odynophagia, dysphagia, no back pain, still coughing intermittently with some sputum production. No chest pain. No abdominal pain. No diarrhea. No genitourinary symptoms. No other joint symptoms. No neurological symptoms. PAST MEDICAL HISTORY: 1. Aortic valve replacement for management of severe aortic stenosis. 2. CHF with depressed LV ejection fraction, which improved markedly following aortic valve replacement. SOCIAL HISTORY: He used to work as a teacher elsewhere and then moved to this area few years ago for penitentiary. Drinks occasionally. He had been smoking until few months before this admission. ALLERGIES: NONE. FAMILY HISTORY: Noncontributory. CURRENT MEDICATIONS: 1. Proventil. 2. DuoNeb. 3. Cordarone. 4. Eliquis. 5. Aspirin. 6. Zofran. 7. Zosyn. 8. Vancomycin. PHYSICAL EXAMINATION: VITAL SIGNS: T-max 101.8-101.6, he has been afebrile of late, BP 150/80, pulse 69, respirations 18 to 20, and O2 saturation 93-95%. SKIN: Normal. GENITOURINARY: The patient has a peripheral IV access and is voiding with an indwelling catheter. NECK: No lymphadenopathy. Neck is supple. No jugular venous distention or carotid bruits. HEENT: Pupils are equal. Sclerae white. Conjunctiva normal. Nasal passages patent. Oral cavity normal, quite a few teeth in place with some decay, but not much. LUNGS: Symmetric air entry with expiratory wheezing, which is scattered and focal area of inspiratory crackles in right base. ABDOMEN: Soft, not distended, nontender. No ascites. No bladder distention. No joint inflammatory activity. EXTREMITIES: Moves extremities equally. NEUROLOGIC: Cognitive function appears to be intact. LABORATORY DATA: White cell count 15.4, hemoglobin 11.8, platelets 129,000. He started at 13% bands, now is down to 11. Sodium 124, AST 296, ALT 161, albumin 2.6. Urinalysis with 21-50 WBCs, vanc trough 9.3, and 2 sets of blood cultures with Streptococcus pneumoniae. IMAGING: The last chest x-ray was completed today and it showed small bilateral pleural effusions. ASSESSMENT: 1. Severe aortic stenosis with recent valve replacement with a porcine valve in the aortic position. 2. Streptococcus pneumoniae bacteremia with cough and abnormal lung findings suggestive of pneumonia, community-acquired. 3. Abnormal liver function tests. DISCUSSION: The differential diagnosis includes the most likely scenario as respiratory tract pneumonia, community-acquired with bacteremia due to Streptococcus pneumoniae. Endocarditis is less likely, but not ruled out. Streptococcus pneumonia does not have the same propensity to cause endocarditis as other Streptococcal species but cases of S. pneumoniae endocarditis have been reported. Await on the 2D echocardiogram and order a CT of chest to see, if we can identify any infiltrate in the left base. He is at risk for development of complicated pleural effusions. We will have to continue monitoring his progress. Repeat blood cultures to verify resolution of bacteremia in a few days. No areas of involvement outside those mentioned at this point. Job ID: [id number] [facility]
[2018-08-18] MEDS: Sodium Chloride 0.9% 1,000 ML IV SCH (01:26)
[2018-08-18] MEDS: Piperacillin/Tazobactam 4.5 GM in Sodium Chloride 0.9% 100 ML IVPB SCH ×3 (03:08→18:27)
[2018-08-18] MEDS: Vancomycin HCl 1.75 GM in Sodium Chloride 0.9% 500 ML IVPB SCH ×2 (03:46→15:37)
[2018-08-18] MEDS ORDERED: traMADol HCl 50 MG TAB PO PRN (08:48)
[2018-08-18] MEDS: Aspirin Chewable 81 MG TAB PO SCH (10:04)
[2018-08-18] MEDS: Amiodarone 200 MG TAB PO SCH ×2 (10:04→20:18)
[2018-08-18 10:10] LABS: Anion Gap 12 mmol/L (10-20); BUN (Urea Nitrogen) 10 mg/dL (8.4-25.7); Calc. Creatinine Clearance 134 mL/min (70-130); Calcium 8.3 mg/dL (7.8-10.44); Carbon Dioxide 22 mmol/L (23-31); Chloride 94 mmol/L (98-107); Estimated GFR-MDRD Greater than 90; Glucose 130 mg/dL (80-115); Potassium 3.3 mmol/L (3.5-5.1); Sodium 125 mmol/L (136-145)
--- NOTE | 2018-08-18 10:55 | PRG ---
DATE OF SERVICE: 08/18/2018 SUBJECTIVE: Patient was seen and examined at bedside and overnight events noted. Patient denies any shortness of breath or chest pain or palpitation. No history of nausea or vomiting or diarrhea or fever or chills or cramps. OBJECTIVE: GENERAL: This is a well-built male, in no apparent distress. VITAL SIGNS: Temperature 97.7. Heart rate . HEENT: Atraumatic, normocephalic. Oral mucosa is moist NECK: Supple. CARDIOVASCULAR: S1, S2 heard. Rate and rhythm regular. RESPIRATORY: Clear to auscultation. GASTROINTESTINAL: Abdomen is soft. MUSCULOSKELETAL: No tenderness. No edema. DERMATOLOGIC: No skin rash. NEUROLOGIC: Alert and awake and oriented X3. No focal neurologic deficits. Moving all the extremities. PSYCHIATRIC: Mood and affect normal. LABORATORY DATA: Pending. ASSESSMENT AND PLAN: 1. Hyponatremia. Recheck labs today. Continue IV fluids. 2. Hypochloremia. 3. Edema. 4. Hypertension, stable. Plan is to continue IV fluids. today. Job ID: [id number]
--- NOTE | 2018-08-18 11:52 | PDOC.CTH ---
Cardiology Progress Note - Subjective No new issues. Feeling better. - Objective Vital Signs Temp Pulse Resp BP BP Pulse Ox 08/18/18 08:04 97.4 F L 62 16 175/85 H 93 L 08/18/18 04:10 97.7 F 68 20 166/84 H 92 L Weight 187 lb 3.2 oz 08/17/18 08/18/18 08/19/18 06:59 06:59 06:59 Intake Total 2112 1870 Output Total 1100 700 Balance 1012 1170 - Physical Examination General/Neuro: alert & oriented x3, NAD Neck: no JVD present Lungs: CTA, unlabored respirations Heart: RRR Abdomen: NT/ND Extremities: other: (no edema.) - Telemetry Telemetry Rhythm: NSR - Labs Result Diagrams: 08/17/18 05:47 08/18/18 09:36 Troponin/CKMB Troponin I Less than 0.010 ng/mL (< 0.028) 08/15/18 15:57 - Assessment/Plan 1. Strep pneumo bacteremia 2. S/P AVR in the past 3. LV dysfunction now normalized EF. 4. Possible pneumonia. PLAN: - Transthoracic echo without significant evidence of vegetation. - AVR function is normal without AI. - Continue abx per primary team - Would only do SAMI if fever recurs. - Sergio Del Angel
--- NOTE | 2018-08-18 13:03 | PQF ---
DATE: 08-18-18 ATTN: DR. CHRISTOPHER SON Please exercise your independent, professional judgment in responding to the clarification form. Clinical indicators are provided on the bottom of this form for your review Please check appropriate box(s): HEART FAILURE: A. TYPE: [ ] Systolic / HFrEF [ ] Diastolic / HFpEF [ ] Combined Systolic / Diastolic B. ACUITY [ ] Acute [ ] Acute on Chronic [ ] Chronic [ x ] Other diagnosis - Pneumonia. Did not have heart failure. [ ] Unable to determine In addition, please specify: Present on Admission (POA): [ ] Yes [ ] No [ ] Unable to determine For continuity of documentation, please document condition throughout progress notes and discharge summary. Thank You. CLINICAL INDICATORS - SIGNS / SYMPTOMS / LABS ER: SOB, HX OF HEART FAILURE BUT HASN'T BEEN TAKING LASIX FOR PAST 5 MONTHS SINCE HIS DCS ENGINEER TOLD HIM TO STOP FOR NOW. HX OF CHF ER DX: HYPONATREMIA, ACUTE HEART FAILURE EXACERBATION, ELEVATED CK H&P: UNDERLYING CHF, THE PATIENT HAS BNP 219, AND ALSO WE NEED TO BE CAUTIONS D /T UNDERLYING CHF AND ELEVATED BNP BNP: 08-15-18: 1219.8 CXR 08-17-18: FINDINGS SUGGESTING SMALL BILATERAL PLEURAL EFFUSIONS RISKS: H&P: SOB, HX CHF, HTN, SMOKER TREATMENTS: ER: CURRENT MEDS: CARVEDILOL, LISINOPRIL, LASIX, AMIODARONE (This form is maintained as a part of the permanent medical record) 2014 [employer]. All Rights Reserved KELLI [email or web address] Office: [phone] [facility] HOSPITALJosé Luis
[2018-08-18] MEDS: Apixaban 5 MG TAB PO SCH ×2 (13:15→20:18)
--- NOTE | 2018-08-18 13:38 | PDOC.PN ---
- Subjective Encounter Start Date: 08/18/18 Encounter Start Time: 10:00 Doing well. Has some mild cough that is minimally productive. His girlfriend is present today. He apparently called her and was confused. He did not know what time of day it was. He says he was disoriented by the constant interruptions that come with a hospital stay. Feels ok now. - Objective Resuscitation Status - Order Detail: 08/15/18 21:36 Resuscitation Status Routine Resuscitation Status: FULL: Full Resuscitation Vital Signs & Weight: Vital Signs (12 hours) Temp Pulse Resp BP BP Pulse Ox 08/18/18 11:11 97.9 F 59 L 16 143/74 H 92 L 08/18/18 08:04 97.4 F L 62 16 175/85 H 93 L 08/18/18 04:10 97.7 F 68 20 166/84 H 92 L Weight Weight 187 lb 3.2 oz I&O: 08/17/18 08/18/18 08/19/18 06:59 06:59 06:59 Intake Total 2112 1870 Output Total 1100 700 Balance 1012 1170 Result Diagrams: 08/17/18 05:47 08/18/18 09:36 Phys Exam - Physical Examination Constitutional: NAD Respiratory: no wheezing, no rales, no rhonchi Rales noted yesterday not noted today. Cardiovascular: RRR, no significant murmur, no rub Gastrointestinal: soft, non-tender, no distention, positive bowel sounds Musculoskeletal: no edema Psychiatric: normal affect, A&O x 3 Dx/Plan (1) Sepsis Code(s): A41.9 - SEPSIS, UNSPECIFIED ORGANISM Status: Resolved (2) Hyponatremia Code(s): E87.1 - HYPO-OSMOLALITY AND HYPONATREMIA Status: Acute (3) UTI (urinary tract infection) Status: Ruled-out (4) Transaminitis Code(s): R74.0 - NONSPEC ELEV OF LEVELS OF TRANSAMNS & LACTIC ACID DEHYDRGNSE Status: Acute (5) Aortic valve replaced Code(s): Z95.2 - PRESENCE OF PROSTHETIC HEART VALVE Status: Acute Comment: Bioprosthetic valve placed at [facility] 09/12. (6) Pneumonia Code(s): J18.9 - PNEUMONIA, UNSPECIFIED ORGANISM Status: Acute (7) Streptococcal bacteremia Code(s): R78.81 - BACTEREMIA; B95.5 - UNSP STREPTOCOCCUS THE CAUSE OF DISEASES CLASSD ELSWHR Status: Acute - Plan * Has evidence of infiltrate on chest CT. * Has Strep pneumoniae bacteremia. * Continue Vanc/Zosyn. * ID consulted and following. * Echo done, results pending. * Clinically feeling better. Fever improved. * Sodium getting better. Nephrology following. * Concerned he may drink more alcohol than he reported. Has elevated liver enzymes, has some gait issues and had an episode of confusion. Will monitor. .
[2018-08-18] MEDS: Simvastatin 20 MG TAB PO SCH (20:18)
[2018-08-19] MEDS: Piperacillin/Tazobactam 4.5 GM in Sodium Chloride 0.9% 100 ML IVPB SCH ×2 (03:02→09:09)
[2018-08-19 03:50] LABS: Vancomycin, Trough 14.7 ug/mL
[2018-08-19 03:51] LABS: Anion Gap 9 mmol/L (10-20); BUN (Urea Nitrogen) 8 mg/dL (8.4-25.7); Calc. Creatinine Clearance 137 mL/min (70-130); Carbon Dioxide 27 mmol/L (23-31); Chloride 96 mmol/L (98-107); Estimated GFR-MDRD Greater than 90; Glucose 96 mg/dL (80-115); Potassium 3.4 mmol/L (3.5-5.1); Sodium 129 mmol/L (136-145)
[2018-08-19] MEDS: Vancomycin HCl 1.75 GM in Sodium Chloride 0.9% 500 ML IVPB SCH ×2 (03:54→16:52)
[2018-08-19 04:04] LABS: Hemoglobin 10.1 g/dL (14.0-18.0); Mean Corpuscular Hemoglobin 33.4 pg (27.0-31.0); Mean Platelet Volume 7.5 fL (7.4-10.4); Platelet Count 162 thou/uL (130-400); RBC Distribution Width 13.3 % (11.5-14.5); Red Blood Cell (RBC) Count 3.02 mill/uL (4.70-6.10); White Blood Cell (WBC) Count 9.1 thou/uL (4.8-10.8)
[2018-08-19 04:05] LABS: Band 2 % (5-11); Hypochromia SLIGHT = 6-15 cells (100X) (0-5/hpf); Lymphocytes 7 % (21-51); MDiff Complete? YES; Monocytes 2 % (0-10); Neutrophil 89 % (42-75); Platelet Morphology Comment Appears Adequate
[2018-08-19] MEDS ORDERED: Amlodipine 5 MG TAB PO SCH (09:00)
[2018-08-19] MEDS: Apixaban 5 MG TAB PO SCH (09:10)
[2018-08-19] MEDS: Amiodarone 200 MG TAB PO SCH (09:10)
[2018-08-19] MEDS: Aspirin Chewable 81 MG TAB PO SCH (09:10)
--- NOTE | 2018-08-19 09:11 | PRG ---
DATE OF SERVICE: 08/19/2018 SUBJECTIVE: Patient was seen and examined at bedside and overnight events noted. Patient denies any shortness of breath or chest pain or palpitation. No history of nausea or vomiting or diarrhea or fever or chills or cramps. OBJECTIVE: GENERAL: This is a well-built male, in no acute distress. VITAL SIGNS: Temperature blood pressure 178/84. HEENT: Atraumatic, normocephalic. Oral mucosa is moist NECK: Supple. CARDIOVASCULAR: S1, S2 heard. Rate and rhythm regular. RESPIRATORY: Clear to auscultation. GASTROINTESTINAL: Abdomen is soft. MUSCULOSKELETAL: No tenderness. No edema. DERMATOLOGIC: No skin rash. NEUROLOGIC: Alert and awake and oriented X3. No focal neurologic deficits. Moving all the extremities. PSYCHIATRIC: Mood and affect normal. LABORATORY DATA: Potassium is 3.4, sodium is 129, BUN is 8, creatinine is 0.6. ASSESSMENT AND PLAN: 1. Hyponatremia, it is better. 2. Hypokalemia, replace and monitor. 3. Edema. 4. Hypertension, stable. Sodium level is better. Continue with hydration. Job ID: [id number]
--- NOTE | 2018-08-19 13:49 | PRG ---
DATE OF SERVICE: 08/19/2018 SUBJECTIVE: The patient is feeling better. He has less cough. No shortness of breath. No chest pain. No abdominal symptoms or diarrhea. OBJECTIVE: VITAL SIGNS: Stability with T-max of 99.5, BP 150/80, pulse 61, and O2 saturation 94%. GENERAL: There is no distress. LUNGS: With scattered inspiratory crackles, particularly in the right base. HEART: S1 and S2. Regular rate. ABDOMEN: Soft, not distended or tender. GENITOURINARY: The patient is voiding in the urinal. LABORATORY DATA: White cell count is 9.1, hemoglobin 10.1, platelets 168, and 89% neutrophils. Creatinine 0.65 and sodium 129. Microbiology with Strep pneumoniae, which was pansensitive strain. A CT of chest demonstrated multifocal pulmonary infiltrates, patchy areas of airspace consolidation in left lower lobe, and patchy reticular nodularity in the right upper lobe. ASSESSMENT AND DISCUSSION: 1. Severe aortic stenosis with valve replacement with porcine valve. 2. Streptococcus pneumoniae bacteremia with evidence of community-acquired pneumonia. The patient is improving rapidly and I would consider the final diagnosis as community-acquired pneumonia rather than endocarditis and recommend discharge planning with oral antimicrobial therapy, probably either a quinolone or beta-lactam antimicrobial for another few days. No evidence of complication of the pneumonic process or distant areas of involvement at this point in time. Job ID: [id number]
[2018-08-19 16:36] VITALS: BP 135/74; TEMP 98.4
--- NOTE | 2018-08-21 08:37 | PDOC.EVN ---
Event Note - Event Note Event Note: Patient called- She was unable to pick her meds since [facility] is closed. New scripts sent to [facility]
--- NOTE | 2018-08-22 08:50 | PQF ---
DATE: 08-22-18 ATTN: DR. CHRISTOPHER SON Please exercise your independent, professional judgment in responding to the clarification form. Clinical indicators are provided on the bottom of this form for your review Please check appropriate box(s): [ x ] Encephalopathy: Type: [ x ] Acute [ ] Subacute [ ] Chronic Etiology: [ ] Metabolic [ ] Toxic [x ] Septic [ ] Other (please specify) [ ] Transient Alteration of Awareness [ ] Other diagnosis [ ] Unable to determine In addition, please specify: Present on Admission (POA): [ ] Yes [ x ] No [ ] Unable to determine For continuity of documentation, please document condition throughout progress notes and discharge summary. Thank You. CLINICAL INDICATORS - SIGNS / SYMPTOMS / LABS PN 08/16 (ADELAIDA): Slightly confused at times NN night of 08/16: (0202) T 101.6, RR 35, pt remains heavily confused & disoriented, does not make sense when he talks; (0404): Temp improved to 100.8, rr 24; pt states he is feeling "better". Pt remains disoriented but is now oriented to person & place; (0500): Pt remains altered at this time; ( 0527): Pt is oriented to person & place; when asked what year it is, pt stated 2011 & thinks it is September. PN 08/18 (ADELAIDA): Psychiatric: normal affect, A/O X3. Clinically feeling better. Fever improved. Sodium getting better. Concerned he may drink more alcohol than he reported. Has elevated liver enzymes, has some gait issues & had an episode of confusion. RISK FACTORS: H&P: SEPSIS HYPONATREMIA (117 ON ADMIT) 08-16-18: STREPTOCOCCAL BACTEREMIA (BLOOD CX 2 OF 2 POSITIVE) TREATMENTS: IV ANTIBIOTICS (VANCOMYCIN & ZOSYN, 08/15 - PRESENT) 08-17-18: INFECTIOUS DX CONSULT 08-16-18: NEPHROLOGY CONSULT (This form is maintained as a part of the permanent medical record) 2014 [employer]. All Rights Reserved [email or web address] [email or web address] Office: [phone] [facility]
== END 2018-08-19 17:04 | disposition home or self-care (01) | DRG 871 ==
LOC: ERS 15:24 → OBSVTOIN 17:51 → 2SW 17:51 → 2NO 08-16 19:43
PROVIDERS: ADMIT Emergency Medicine; ATTEND Emergency Medicine
DX: A40.9 Streptococcal sepsis, unspecified (principal); J13 Pneumonia due to Streptococcus pneumoniae; G93.41 Metabolic encephalopathy; E87.1 Hypo-osmolality and hyponatremia; N39.0 Urinary tract infection, site not specified; I48.91 Unspecified atrial fibrillation; E87.8 Other disorders of electrolyte and fluid balance, not elsewhere classified; F17.210 Nicotine dependence, cigarettes, uncomplicated; R74.0 Nonspecific elevation of levels of transaminase and lactic acid dehydrogenase [LDH]; Z95.2 Presence of prosthetic heart valve; I35.0 Nonrheumatic aortic (valve) stenosis; E87.6 Hypokalemia; I11.0 Hypertensive heart disease with heart failure; I50.9 Heart failure, unspecified
CPT/HCPCS: 36415; 36416; 70450; 71045; 71046; 71250; 76705; 80048; 80053; 80202; 81001; 82436; 82550; 82570; 83690; 83880; 83930; 83935; 84133; 84300; 84484; 85025; 87040; 87077; 87086; 87149; 87186; 87804; 93005; 93306; 94640; 96360; J2543; J3370; J7050; J7620

== ENCOUNTER 2019-07-23 17:28 | Inpatient (IN) | payer MEDICARE ==
[2019-07-23 18:28] LABS: INR-International Normal Ratio 1.7; Prothrombin Time 20.2 SEC (12.0-14.7)
[2019-07-23 18:29] LABS: PTT 35.7 SEC (22.9-36.1)
[2019-07-23] MEDS ORDERED: Furosemide 40 MG/4 ML VIAL ONE (19:45)
[2019-07-23 23:46] VITALS: BMI 27.1
[2019-07-23] MEDS ORDERED: Acetaminophen 500 MG TAB PO PRN (23:58)
[2019-07-23] MEDS ORDERED: PROVENTIL INHALER 6.7 G (200 INHALATIONS) INH PRN (23:58)
[2019-07-23] MEDS ORDERED: Ondansetron ODT 4 MG TAB PO PRN (23:58)
[2019-07-23] MEDS ORDERED: Ondansetron PF 4 MG/2 ML Vial IVP PRN (23:58)
[2019-07-23] MEDS ORDERED: Sodium Chloride 0.9% 1,000 ML IV SCH (23:58)
[2019-07-23] MEDS ORDERED: hydrALAZINE 20 MG/ML VIAL SLOW IVP PRN (23:58)
[2019-07-24] MEDS ORDERED: Sodium Chloride 0.9% (PF) 10 ML VIAL FS PRN (00:09)
[2019-07-24] MEDS: Sodium Chloride 0.9% 1,000 ML IV SCH ×2 (00:43→20:30)
--- NOTE | 2019-07-24 02:15 | HP ---
PRIMARY CARE PROVIDER: [place], [place]. CHIEF COMPLAINT: Shortness of breath and lower extremity swelling. HISTORY OF PRESENT ILLNESS: This is a 68-year-old male, who presents to [facility] Emergency Department complaining of approximate 2-week history of persistent and progressive shortness of breath, decreased exercise tolerance, feeling cold and general malaise. The patient denied any documented fever, chills, travel history or exposure. The patient denied any family members with similar symptoms. The patient denied any specific hematemesis, melena or hematuria. The patient does report taking chronic Eliquis due to a bioprosthetic aortic valve replacement. The patient states he has been compliant with his chronic medication regimen and denied any recent change or adjustment to his medications. The patient does admit to taking aspirin 81 mg daily. The patient denies any previous endoscopy or strong family history of colon cancer. The patient denies any personal history of gastric ulceration or prominent GERD symptoms. In the emergency room, the patient underwent general evaluation with CBC showing a hemoglobin of 3.7. The previous hemoglobin on record was noted 6.6 on 02/07/2019. Review of electronic medical record shows hemoglobin in July of 2017 at 14.1. The patient received 2 units of packed red blood cells in addition to IV Protonix and Lasix 40 mg IV push x1 dose. PAST MEDICAL HISTORY: 1. Chronic anticoagulation with Eliquis. 2. Bioprosthetic aortic valve. 3. Diastolic congestive heart failure with preserved ejection fraction of 50% to 55%. 4. History of pneumonia/sepsis in July 2018. PAST SURGICAL HISTORY: Status post bioprosthetic aortic valve replacement. CURRENT MEDICATIONS: 1. ProAir HFA one puff inhaled q.4 hours p.r.n. 2. Amiodarone 200 mg p.o. daily. 3. Carvedilol 6.25 mg p.o. b.i.d. 4. Lisinopril 5 mg p.o. daily. 5. Tramadol 50 mg p.o. q.6 hours p.r.n. pain. 6. Eliquis 5 mg p.o. b.i.d. 7. Enteric-coated aspirin 81 mg p.o. daily. 8. Zocor 20 mg p.o. at bedtime. ALLERGIES: NO KNOWN DRUG ALLERGIES. FAMILY HISTORY: Positive for hypertension. SOCIAL HISTORY: Resides in [place], [place]. Retired. Occasional alcohol use. No illicit drug use. Remote tobacco use quitting more than 10 years prior to this evaluation. REVIEW OF SYSTEMS: CONSTITUTIONAL: Negative for weight loss or gain, ability to conduct usual activities. SKIN: Negative for rash, itching. EYES: Negative for double vision, pain. ENT/MOUTH: Negative for nose bleeding, neck stiffness, pain, tenderness. CARDIOVASCULAR: Negative for palpitations, dyspnea on exertion, orthopnea. RESPIRATORY: Negative for shortness of breath, wheezing, cough, hemoptysis, fever or night sweats. GASTROINTESTINAL: Negative for poor appetite, abdominal pain, heartburn, nausea, vomiting, constipation, or diarrhea. GENITOURINARY: Negative for urgency, frequency, dysuria, nocturia. MUSCULOSKELETAL: Negative for pain, swelling. NEUROLOGIC/PSYCHIATRIC: Negative for anxiety, depression. ALLERGY/IMMUNOLOGIC: Negative for skin rash, bleeding tendency. Otherwise negative except as stated per HPI. PHYSICAL EXAMINATION: VITAL SIGNS ON ADMISSION: Blood pressure 126/61, pulse 55, respiratory rate 20, temperature 98.6 degrees Fahrenheit, O2 saturation 99% on room air. GENERAL APPEARANCE: This is a 68-year-old male, alert and oriented x3, pleasant, responsive, smiling, in no acute distress. HEENT: Pupils are equal, round, reactive to light and accommodation. Extraocular muscles are intact. No scleral icterus, conjunctiva pale. Nares patent. OP is clear. Teeth in fair repair. NECK: Supple. No cervical adenopathy. No thyromegaly. No carotid bruits. No JVD appreciated. Cervical spine with full active and passive range of motion. No meningeal signs noted. CHEST: Lungs are clear to auscultation bilaterally. CARDIOVASCULAR: S1, S2 with 2/6 systolic ejection murmur in the right upper sternal border. ABDOMEN: Protuberant, soft, nontender, and nondistended. No palpable mass. No rebound or guarding appreciated. Bowel sounds are positive in all 4 quadrants. EXTREMITIES: Warm and dry with fair turgor. Ankle edema bilaterally. Pulses are palpable distally at the dorsalis pedis, posterior tibial, and popliteal arteries bilaterally. Capillary refill less than 2 seconds. NEUROLOGIC: Cranial nerves 2 through 12 are grossly intact. No focal or lateralizing signs appreciated. PERTINENT LABORATORY AND X-RAY FINDINGS: Sodium is 116, potassium 5.2, chloride 85, CO2 of 19, BUN 21, creatinine 1.44, estimated GFR of 49, glucose 124, calcium 9.0, magnesium 2.0, AST 206, ALT 174, total bilirubin 1.1. Troponin I negative x1. BNP 1210, lipase 57. CBC showed a white blood cell count of 16.3, hemoglobin 3.7, hematocrit 13, MCV 65, platelet count 319 with 91% neutrophils. PT 20.2, INR 1.7, PTT 35.7. IMAGIN. Stool Hemoccult negative x1 on 07/23/2019. 2. Portable chest x-ray dated 07/23/2019 showed no acute cardiopulmonary process. ASSESSMENT/PLAN: 1. Symptomatic anemia. The patient will be admitted to the intermediate care unit. Suspicion for a gastrointestinal blood loss. However, initial guaiac of the stool negative x1. Status post 2 units of packed red blood cells. Serial H and H monitoring. Consult GI Service in the a.m. for endoscopy to further define etiology of presentation. Check serum iron studies, B12 and folate. Hold Eliquis. 2. Hyponatremia. Etiology unclear, likely related to #1 in addition to poor oral intake. We will continue intravenous normal saline at 50 mL/hour with serial sodium monitoring. 3. Acute kidney injury. We will continue volume replacement as outlined previously. Avoid nephrotoxic agents and limit contrast exposure. Serial creatinine monitoring. 4. Transaminitis. Questionable subacute process. Previous history of hepatic steatosis. Consider repeat imaging and monitor liver function tests trend. 5. Chronic anticoagulation. Hold Eliquis due to #1. 6. Consider Cardiology consultation after GI evaluation. 7. Diastolic heart failure. Appears compensated and chronic. Check 2D transthoracic echocardiogram for further evaluation of ejection fraction. 8. Prophylaxis. Sequential compression devices while in bed. Protonix 40 mg IV q.12 hours. CODE STATUS: Full. Surrogate medical decision maker is Juan Sloan. Job ID: [id number]
[2019-07-24 03:52] LABS: Reticulocyte Count 3.5 % (0.5-1.5)
[2019-07-24 03:59] LABS: Hemoglobin 5.3 g/dL (14.0-18.0); Mean Corpuscular HGB CONC 30.8 g/dL (32.0-36.0); Mean Corpuscular Hemoglobin 21.6 pg (27.0-31.0); Mean Corpuscular Volume 70.2 fL (78.0-98.0); Platelet Count 243 thou/uL (130-400); RBC Distribution Width 20.1 % (11.5-14.5); Red Blood Cell (RBC) Count 2.46 mill/uL (4.70-6.10)
[2019-07-24 04:06] LABS: Band 1 % (5-11); Hypochromia MODERATE=16-30 cells (100X) (0-5/hpf); Lymphocytes 7 % (21-51); MDiff Complete? YES; Microcytosis MODERATE=15-30 cells (100X) (0-5/hpf); Monocytes 7 % (0-10); Neutrophil 85 % (42-75); Ovalocytes SLIGHT = 2-5 cells (100X) (0-1/hpf); Platelet Morphology Comment Appears Adequate; Reflex for Review?? NO
[2019-07-24 04:14] LABS: ALT (SGPT) 162 U/L (8-55); AST (SGOT) 183 U/L (5-34); Albumin 3.6 g/dL (3.4-4.8); Alkaline Phosphatase 76 U/L (40-110); Anion Gap 11 mmol/L (10-20); BUN (Urea Nitrogen) 17 mg/dL (8.4-25.7); Bilirubin, Total 2.1 mg/dL (0.2-1.2); Calc. Creatinine Clearance 81 mL/min (70-130); Calcium 8.5 mg/dL (7.8-10.44); Carbon Dioxide 26 mmol/L (23-31); Chloride 90 mmol/L (98-107); Estimated GFR-MDRD 70; Glucose 86 mg/dL (80-115); Iron 24 ug/dL (65-175); Iron Binding Capacity, Total 465 mcg/dL (261-462); Protein, Total 5.6 g/dL (5.8-8.1); Sodium 123 mmol/L (136-145)
[2019-07-24 06:42] LABS: Platelet Count 218 thou/uL (130-400)
[2019-07-24 06:48] LABS: INR-International Normal Ratio 1.5; PTT 36.2 SEC (22.9-36.1); Prothrombin Time 18.3 SEC (12.0-14.7)
[2019-07-24 06:49] LABS: D-Dimer Test 0.44 *mcg/mL (0.27-0.43)
[2019-07-24 06:57] LABS: Fibrinogen 289 mg/dL (253-463)
[2019-07-24 07:23] LABS: FSP-Qualitative Normal (Normal)
[2019-07-24] MEDS ORDERED: Amiodarone 200 MG TAB PO SCH (09:00)
[2019-07-24] MEDS ORDERED: Amlodipine 5 MG TAB PO SCH (09:00)
[2019-07-24] MEDS: Carvedilol 6.25 MG TAB PO SCH ×2 (09:32→18:13)
[2019-07-24] MEDS: Lisinopril 5 MG TAB PO SCH ×2 (09:33→20:27)
[2019-07-24] MEDS: Amiodarone 200 MG TAB PO SCH (09:33)
[2019-07-24] MEDS: Pantoprazole 40 MG VIAL IVP SCH ×2 (09:34→20:29)
[2019-07-24 17:29] LABS: Hemoglobin 7.8 g/dL (14.0-18.0)
--- NOTE | 2019-07-24 18:41 | CON ---
DATE OF CONSULTATION: 07/24/2019 REASON FOR CONSULTATION: Microcytic anemia. HISTORY OF PRESENT ILLNESS: Mr. Sloan is a 68-year-old gentleman, who came to the hospital yesterday afternoon with about 3 weeks of fatigue, shortness of breath, progressive cold intolerance, and decreased exercise tolerance. He has had no history of fever, chills, myalgias, rashes, or viral-like illnesses. He was found to have a hemoglobin of 3.7; back in January, it had been 6.6. He reports that when that was done, he is postop with his housekeeper nanny, but when he was there, they did not have any results, and they were going to try to find them. He never heard anything really else about that. Otherwise, he gets his care at [facility]. He is not aware of being anemic before. The patient denies any history of melena, hematochezia, or hematemesis. He has been eating well. His weights have been pretty stable. When he has been sick with heart failure in the past with diuresis, he has lost quite a bit of weight, but otherwise, has been quite stable. The patient received 2 units of blood in addition to some IV Protonix and Lasix yesterday. His Hemoccult was negative. He has never had a colonoscopy. Denies reflux symptoms. PAST MEDICAL HISTORY: 1. Atrial fibrillation. 2. Chronic anticoagulation with Eliquis since September 02, 2017. 3. History of bioprosthetic aortic valve placed on September 02, 2017. 4. History of diastolic congestive heart failure, ejection fraction 50% to 55% in the past, last echo here about a year ago. 5. History of pneumonia versus sepsis versus CHF in July 2018. PAST SURGICAL HISTORY: Bioprosthetic aortic valve replacement. MEDICATIONS: Medications at home: 1. Albuterol. 2. Amiodarone. 3. Aspirin. 4. Eliquis. 5. Tramadol. 6. Zocor. 7. Zestril. 8. Carvedilol. Medications here: 1. Tylenol. 2. Proventil. 3. Amiodarone. 4. Carvedilol. 5. Apresoline. 6. Zestril. 7. Zofran. 8. Protonix. 9. Normal saline at 50 an hour. SOCIAL HISTORY: No significant alcohol. He does smoke until a few years ago. He has been a past user of drugs including IV drugs, but has not done that in 20 years. FAMILY HISTORY: Negative for colon cancer or liver disease. PHYSICAL EXAMINATION: VITAL SIGNS: Temperature 98, blood pressure 138/68, pulse 54, respirations 15, O2 saturation 99%. GENERAL: He has a ibarra. He is comfortable. He is sitting in bed. NECK: Mild jugular venous distention is present. LUNGS: There are no crackles or rales, but seems like a little bit of bronchial breath sounds throughout the lungs. HEART: Has regular rate and rhythm. I do not appreciate overt murmur. ABDOMEN: Soft and nontender without any palpable hepatosplenomegaly. There is no shifting dullness or fluid wave. EXTREMITIES: No clubbing, cyanosis, or edema. LABORATORY DATA: Hemoglobin was 3.7 yesterday, it is 5.3 today; MCV was 69, platelet count 243, white count 7. INR 1.5. Sodium 123 at baseline, it was 116 yesterday, it was 130 in 01/2019. BUN is 17, creatinine is 1.06. Iron 24. Bilirubin 2.1. TIBC 465. Ferritin 35. AST 182, ALT 162. BNP was 1209. Albumin was 3.6. B12 was 539. Folate 13.7. IMAGING STUDIES: X-ray looks like he has some increased markings in the upper lung rodgers consistent with vascular congestion. He has an enlarged heart. ASSESSMENT: 1. Significant anemia, microcytic. He is Hemoccult negative, but likely has had a slow chronic gastrointestinal blood loss as he had a hemoglobin of 6.6 back In january of 2018. He presented here with a hemoglobin of 3, and now, his hemoglobin is 5. 2. Chronic anticoagulation for atrial fibrillation. 3. History of diastolic heart failure. 4. Elevated liver function tests. He has some history of previous drug abuse, but negative hepatitis C antibody a roughly a year ago. This may be some passive congestion, although he has had elevated LFTs in the past, going back to 18. RECOMMENDATIONS: 1. Cardiac evaluation. 2. I would transfuse him up to hemoglobin of at least 7. We are going to consider endoscopy this admission. Otherwise, he can get Iv iron and stay off his Eliquis, and when his blood count comes up, he can have an outpatient endoscopy. 3. We would get an ultrasound of his liver with Dopplers, and we would repeat serologic workup for that. We will follow along with you. Job ID: [id number]
--- NOTE | 2019-07-24 21:31 | CON ---
DATE OF CONSULTATION: 07/24/2019 REASON FOR CONSULTATION: Severe anemia, history of atrial arrhythmias and he is on Eliquis, he says he has a bioprosthetic valve. HISTORY OF PRESENT ILLNESS: Mr. Sloan is a pleasant 68-year-old gentleman who came to the hospital with severe weakness and fatigue, started getting some ankle swelling and shortness of breath. He was found to be severely anemic. He is now getting either his 4th or 5th unit of packed red blood cells. He has began feeling better. No chest pain or pressure. Otherwise has been doing okay. MEDICATIONS: At home included: 1. Albuterol inhaler. 2. Apixaban 5 mg twice daily. 3. Aspirin. 4. Simvastatin. 5. Lisinopril. 6. Carvedilol. 7. Tramadol. 8. Amiodarone 200 mg daily. ALLERGIES: NONE KNOWN. SOCIAL HISTORY: No alcohol or tobacco abuse. REVIEW OF SYSTEMS: CONSTITUTIONAL: No significant weight gain or loss of vision. No changes in hearing. PULMONARY: No cough or wheezing. He was short of breath, that is improved. GASTROINTESTINAL: No nausea, vomiting, diarrhea. He said he does not have blood in his stools or black stools. NEUROLOGIC: No unilateral weakness or numbness. PSYCHIATRIC: No unusual anxiety or depression. FAMILY HISTORY: Noncontributory. SOCIAL HISTORY: No alcohol or tobacco abuse. PHYSICAL EXAMINATION: GENERAL: This is a pleasant 68-year-old man. He said he is feeling much better than when he came in, still receiving packed red blood cells. VITAL SIGNS: Blood pressure 137/75, pulse 80, it is regular. HEENT: Eyes sclerae nonicteric. Mouth, mucous membranes moist. NECK: Supple. No lymphadenopathy. LUNGS: Clear. CARDIAC: Normal S1, normal S2. I do not hear murmur, rub, or gallop. ABDOMEN: Soft, nontender. EXTREMITIES: Warm, dry. No clubbing or cyanosis. There is no edema. LABORATORY DATA: Hemoglobin on admission was 3.7, this morning it is 5.3, but he is receiving additional units of packed red blood cells. EKG looks like it is sinus rhythm with a first-degree block on the rhythm strip. There is no 12-lead on the chart. Reviewing outside records, I do not see a 12-lead in the outside records either. ASSESSMENT: 1. History of bioprosthetic aortic valve. 2. History of atrial arrhythmias, anticoagulated with Eliquis, also on aspirin. 3. Anemia, likely secondary to chronic gastrointestinal blood loss. PLAN: 1. Aspirin and Eliquis are on hold, actually he is receiving packed red blood cells. 2. Echocardiogram during this admission. 3. Dr. Salinas will be notified of the patient's location tomorrow and he will see him tomorrow. 4. History of atrial arrhythmias. Job ID: [id number]
[2019-07-25 04:39] LABS: ALT (SGPT) 132 U/L (8-55); AST (SGOT) 113 U/L (5-34); Albumin 3.3 g/dL (3.4-4.8); Alkaline Phosphatase 79 U/L (40-110); Anion Gap 10 mmol/L (10-20); BUN (Urea Nitrogen) 10 mg/dL (8.4-25.7); Bilirubin, Total 2.1 mg/dL (0.2-1.2); Calc. Creatinine Clearance 101 mL/min (70-130); Calcium 8.3 mg/dL (7.8-10.44); Carbon Dioxide 25 mmol/L (23-31); Chloride 94 mmol/L (98-107); Estimated GFR-MDRD 90; Globulin 2.1 g/dL (2.4-3.5); Glucose 85 mg/dL (80-115); Potassium 4.2 mmol/L (3.5-5.1); Protein, Total 5.4 g/dL (5.8-8.1); Sodium 125 mmol/L (136-145)
[2019-07-25 04:58] LABS: HBCM Index 0.11 S/CO (0-0.79); HBSAg Index 0.21 S/CO (0-0.99); Hep A IgM AB Non-Reactive (NonReactive); Hep A IgM S/CO 0.14 S/CO (0-0.79); Hep B Surf Ag Non-Reactive S/CO (NonReactive); Hep C IgG Ab Non-Reactive (NonReactive); Hepatitis B Core IgM Abs Non-Reactive (NonReactive)
[2019-07-25] MEDS: Carvedilol 6.25 MG TAB PO SCH ×2 (08:28→16:23)
[2019-07-25] MEDS: Amiodarone 200 MG TAB PO SCH (08:29)
[2019-07-25] MEDS: Pantoprazole 40 MG VIAL IVP SCH ×2 (08:29→20:00)
[2019-07-25] MEDS: Lisinopril 5 MG TAB PO SCH ×2 (08:29→20:00)
--- NOTE | 2019-07-25 15:07 | PDOC.HOSPP ---
- Subjective Subjective: Seen and examined in the intermediate medical care for. Patient feeling better. Denies black or blood in his bowel movement that he moved this morning. Saturating well on room air. No other acute complaints. - Objective Vital Signs & Weight: Vital Signs (12 hours) Temp Pulse Pulse Resp BP BP Pulse Ox 07/25/19 12:51 99.1 F 58 L 16 92/53 L 07/25/19 11:17 99.2 F 07/25/19 10:45 99.2 F 60 18 130/68 07/25/19 10:28 98.0 F 59 L 20 108/53 L 07/25/19 08:29 65 119/70 07/25/19 08:28 119/70 07/25/19 08:00 100 07/25/19 07:20 99.2 F 07/25/19 03:43 99.6 F Weight Weight 183 lb 14.4 oz Most Recent Monitor Data Heart Rate from ECG 56 NIBP 97/52 NIBP BP-Mean 67 Respiration from ECG 19 SpO2 95 I&O: 07/24/19 07/25/19 07/26/19 06:59 06:59 06:59 Intake Total 800 4350 350 Output Total 1500 2800 Balance -700 1550 350 Result Diagrams: 07/24/19 17:18 07/25/19 03:18 Hospitalist ROS - Review of Systems All other systems reviewed; all pertinent +/- noted in HPI/Subj - Medication Medications: Active Medications Generic Name Dose Route Start Last Admin Trade Name Freq PRN Reason Stop Dose Admin Amiodarone HCl 200 mg 07/24/19 09:00 07/25/19 08:29 Cordarone PO 200 mg DAILY STELLA Administration Carvedilol 6.25 mg 07/24/19 08:00 07/25/19 08:28 Coreg PO Not Given BID-WM STELLA Lisinopril 5 mg 07/24/19 09:00 07/25/19 08:29 Zestril PO 5 mg BID STELLA Administration Pantoprazole Sodium 40 mg 07/24/19 09:00 07/25/19 08:29 Protonix IVP 40 mg Q12HR STELLA Administration - Exam General Appearance: NAD, awake alert Eye: anicteric sclera ENT: normocephalic atraumatic, moist mucosa Neck: supple, no lymphadenopathy Heart: no murmur, no gallops, no rubs Respiratory: CTAB, no wheezes, no rales, no ronchi, normal chest expansion Gastrointestinal: soft, non-tender, no guarding, no rigidity Extremities: no edema Skin: no rashes Neurological: cranial nerve grossly intact, no focal deficits Musculoskeletal: normal strength Psychiatric: normal affect, A&O x 3 Hosp A/P (1) GI bleeding Code(s): K92.2 - GASTROINTESTINAL HEMORRHAGE, UNSPECIFIED Status: Acute (2) Symptomatic anemia Code(s): D64.9 - ANEMIA, UNSPECIFIED Status: Acute (3) Shortness of breath Code(s): R06.02 - SHORTNESS OF BREATH Status: Acute (4) Acute systolic heart failure Code(s): I50.21 - ACUTE SYSTOLIC (CONGESTIVE) HEART FAILURE Status: Acute (5) Aortic stenosis, severe Code(s): I35.0 - NONRHEUMATIC AORTIC (VALVE) STENOSIS Status: Acute (6) Aortic valve replaced Code(s): Z95.2 - PRESENCE OF PROSTHETIC HEART VALVE Status: Acute (7) Tobacco abuse Code(s): Z72.0 - TOBACCO USE Status: Chronic - Plan Plan: Intermediate medical care floor gastroenterology consultation, recommendations a patient cardiology consultation, recommendations appreciated transfuse one additional unit of packed red blood cells, goal hemoglobin greater than 8.0, cardiac patient S/p transfused 4 units of packed red blood cells PPI therapy may require endoscopy for definitive diagnosis and treatment of bleeding patient denies overt black or blood in his stool patient with aortic valve replacement who is chronically on aspirin and Eliquis echocardiogram pending blood pressure control blood sugar control continue other home medications as able G.I. prophylaxis DVT prophylaxis
--- NOTE | 2019-07-25 18:48 | PDOC.CPN ---
- Subjective Date: 07/25/19 Time: 18:46 Interval history: He is doing better. No chest pain, tightness, pressure. - Review of Systems General: denies: fever/chills, weight/appetite/sleep changes, night sweats, fatigue Respiratory: reports: shortness of breath. denies: cough, congestion, exercise intolerance Cardiovascular: denies: chest pain, palpitation, edema, paroxysmal nocturnal dyspnea, orthopnea Gastrointestinal: denies: nausea, vomiting, diarrhea, constipation, abd pain, GI bleeding Musculoskeletal: denies: pain, tenderness, stiffness, swelling, arthritis/ arthralgias Neurological: denies: numbness, syncope, seizure, weakness - Objective Allergies/Adverse Reactions: Allergies Allergy/AdvReac Type Severity Reaction Status Date / Time No Known Drug Allergies Allergy Verified 08/15/18 19:37 Visit Medications: Current Medications Acetaminophen (Tylenol) 1,000 mg PO Q6H PRN PRN Reason: Mild Pain (1-3) Albuterol Sulfate (Proventil Hfa) 1 puff INH Q4HR PRN PRN Reason: SOB &/or Wheezing Amiodarone HCl (Cordarone) 200 mg PO DAILY [facility] Last Admin: 07/25/19 08:29 Dose: 200 mg Carvedilol (Coreg) 6.25 mg PO BID-[facility] Last Admin: 07/25/19 16:23 Dose: Not Given Hydralazine HCl (Apresoline) 10 mg SLOW IVP Q4H PRN PRN Reason: SBP > 180 and HR < 70 Lisinopril (Zestril) 5 mg PO BID [facility] Last Admin: 07/25/19 08:29 Dose: 5 mg Ondansetron HCl (Zofran Odt) 4 mg PO Q6H PRN PRN Reason: Nausea/Vomiting Ondansetron HCl (Zofran) 4 mg IVP Q6H PRN PRN Reason: Nausea/Vomiting Pantoprazole Sodium (Protonix) 40 mg IVP Q12HR [facility] Last Admin: 07/25/19 08:29 Dose: 40 mg Sodium Chloride (Normal Saline Pf) 10 ml FS PRN PRN PRN Reason: RECONSTITUTION Vital Signs & Weight: Vital Signs Temp Pulse Pulse Resp BP BP Pulse Ox 07/25/19 16:23 119/70 07/25/19 15:29 99.2 F 07/25/19 12:51 99.1 F 58 L 16 92/53 L 07/25/19 11:17 99.2 F 07/25/19 10:45 99.2 F 60 18 130/68 07/25/19 10:28 98.0 F 59 L 20 108/53 L 07/25/19 08:29 65 119/70 07/25/19 08:28 119/70 07/25/19 08:00 100 07/25/19 07:20 99.2 F Weight 183 lb 14.4 oz - Physical Exam General: alert & oriented x3, appears well HEENT: mucus membranes moist Neck: supple neck Cardiac: regular rate and rhythm, systolic murmur Lungs: clear to auscultation Neuro: grossly intact Abdomen: active bowel sounds Extremities: 1+ LE edema Skin: clear Musculoskeletal: no pain - Labs Result Diagrams: 07/24/19 17:18 07/25/19 03:18 - Telemetry Sinus rhythms and dysrhythmias: sinus rhythm - Assessment/Plan Assessment/Plan: 1. Severe Iron deficiency anemia 2. High output cardiac failure due to severe anemia 3. S/P Bioprosthetic AVR. 4. Paroxysmal afib PLAN: - Anticoagulation contraindicated at this time. - Would resume low dose aspirin in the future once stable and if anemia has stabilized. Likely in next 2-4 months. - Would transfuse until Hgb closer to 10. - OK to proceed with Endoscopic evaluation by GI at any point. - Will follow. - Critical Care Time Critical care time (mins): 30
--- NOTE | 2019-07-25 19:21 | PRG ---
DATE OF SERVICE: 07/25/2019 SUBJECTIVE: Mr. Sloan has had no bleeding. He is resting comfortably in bed. Cardiology has seen him and they are going to give him another unit of blood to try to get his blood count a little bit higher if he goes home. OBJECTIVE: VITAL SIGNS: Blood pressure is 119/70, pulse is 58, and O2 saturation 93%. ABDOMEN: Soft and nontender. LABORATORY DATA: Hemoglobin 7.8. ASSESSMENT: 1. Severe microcytic anemia. 2. Chronic anticoagulation use. 3. Heme-negative stool. 4. Congestive heart failure. PLAN: We will plan for upper and lower endoscopy on Wednesday. We will start him on clear liquid diet tomorrow and prep him tomorrow for Wednesday. I will give Cardiology time to give him one more unit of blood before he undergoes endoscopy. Job ID: [id number]
[2019-07-26] MEDS: Lisinopril 5 MG TAB PO SCH ×2 (08:29→20:58)
[2019-07-26] MEDS: Amiodarone 200 MG TAB PO SCH (08:29)
[2019-07-26] MEDS: Carvedilol 6.25 MG TAB PO SCH ×2 (08:29→17:49)
[2019-07-26] MEDS: Pantoprazole 40 MG VIAL IVP SCH ×2 (08:30→20:58)
[2019-07-26 11:49] LABS: #Lymphocytes 0.6 thou/uL (1.20-3.40); #Monocytes 0.6 thou/uL (0.11-0.59); #Neutrophils 3.7 thou/uL (1.40-6.50); %Basophils 0.9 % (0.0-1.0); %Eosinophils 0.9 % (0.0-10.0); %Lymphocytes 11.6 % (21.0-51.0); %Monocytes 12.1 % (0.0-10.0); %Neutrophils 74.5 % (42.0-75.0); Hemoglobin 9.2 g/dL (14.0-18.0); Mean Corpuscular HGB CONC 30.9 g/dL (32.0-36.0); Mean Corpuscular Hemoglobin 24.5 pg (27.0-31.0); Mean Corpuscular Volume 79.4 fL (78.0-98.0); Mean Platelet Volume 8.9 fL (7.4-10.4); Platelet Count 200 thou/uL (130-400); RBC Distribution Width 21.7 % (11.5-14.5); Red Blood Cell (RBC) Count 3.74 mill/uL (4.70-6.10)
[2019-07-26 12:09] LABS: ALT (SGPT) 105 U/L (8-55); AST (SGOT) 74 U/L (5-34); Albumin 3.4 g/dL (3.4-4.8); Alkaline Phosphatase 83 U/L (40-110); Anion Gap 8 mmol/L (10-20); BUN (Urea Nitrogen) 6 mg/dL (8.4-25.7); Bilirubin, Total 2.3 mg/dL (0.2-1.2); Calc. Creatinine Clearance 114 mL/min (70-130); Calcium 8.4 mg/dL (7.8-10.44); Carbon Dioxide 28 mmol/L (23-31); Chloride 98 mmol/L (98-107); Estimated GFR-MDRD Greater than 90; Globulin 2.1 g/dL (2.4-3.5); Glucose 90 mg/dL (80-115); Magnesium 1.9 mg/dL (1.6-2.6); Potassium 4.2 mmol/L (3.5-5.1); Protein, Total 5.5 g/dL (5.8-8.1); Sodium 130 mmol/L (136-145)
[2019-07-26] MEDS ORDERED: GoLYTELY 4,000 ml Bottle PO SCH (13:30)
--- NOTE | 2019-07-26 15:49 | PDOC.HOSPP ---
- Subjective Encounter Date: 07/26/19 Encounter Time: 15:46 Subjective: Patient seen and examined for severe Anemia. No Melena. No CP/SOB. No new complaints. No overnight events - Objective Vital Signs & Weight: Vital Signs (12 hours) Temp Pulse BP Pulse Ox 07/26/19 15:37 98.8 F 07/26/19 12:00 98.7 F 07/26/19 08:29 87 139/99 H 07/26/19 08:00 99 07/26/19 07:04 98.4 F Weight Weight 187 lb 11.2 oz Most Recent Monitor Data Heart Rate from ECG 56 NIBP 111/73 NIBP BP-Mean 85 Respiration from ECG 18 SpO2 98 I&O: 07/25/19 07/26/19 07/27/19 06:59 06:59 06:59 Intake Total 4350 2445 Output Total 2800 2500 550 Balance 1550 -55 -550 Result Diagrams: 07/26/19 11:29 07/26/19 11:29 EKG Reviewed by me: Yes (Tele SR) Hospitalist ROS - Review of Systems Cardiovascular: denies: chest pain, palpitations, orthopnea, paroxysmal noc. dyspnea, edema, light headedness, other Gastrointestinal: denies: nausea, vomiting, abdominal pain, diarrhea, constipation, melena, hematochezia, other - Medication Medications: Active Medications Generic Name Dose Route Start Last Admin Trade Name Freq PRN Reason Stop Dose Admin Amiodarone HCl 200 mg 07/24/19 09:00 07/26/19 08:29 Cordarone PO 200 mg DAILY STELLA Administration Carvedilol 6.25 mg 07/24/19 08:00 07/26/19 08:29 Coreg PO 6.25 mg BID-WM STELLA Administration Lisinopril 5 mg 07/24/19 09:00 07/26/19 08:29 Zestril PO 5 mg BID STELLA Administration Pantoprazole Sodium 40 mg 07/24/19 09:00 07/26/19 08:30 Protonix IVP 40 mg Q12HR STELLA Administration - Exam General Appearance: NAD Heart: RRR, no gallops, no rubs, normal peripheral pulses Respiratory: no wheezes, no rales, no ronchi, normal chest expansion Gastrointestinal: soft, non-tender, non-distended, normal bowel sounds, no guarding, no rigidity Extremities: no cyanosis, no clubbing Neurological: no new deficit Psychiatric: normal affect, A&O x 3 Hosp A/P - Plan DVT proph w/SCDs Severe symptomatic Anemia s/p 6 units PRBC Par Afib Severe Hyponatremia Chronic diastolic HF with acute high output heart failure Abn LFTs NEERU on CKD 2 Hyperkalemia on admission h/o Bioprosthetic AVR PLAN: Cont IV PPI EGD/Colon in AM AM labs Eliquis dced Cont Coreg/Amiodarone
[2019-07-26 17:01] LABS: ANA Symphony (Qualitative) Negative (Negative); ANA Symphony (Quantitative) 0.3 Ratio (< 0.7 Negative); EliA Vaculitis New Method **** NEW METHOD ****; Mitochondrial Ab 0.7 U/mL (<4 Negative); dsDNA IgG Antibody 1.9 IU/mL (<10 Negative)
--- NOTE | 2019-07-26 19:26 | PDOC.CPN ---
- Subjective Date: 07/26/19 Time: 19:24 Interval history: He is doing well. He denies any chest pain, tightness, pressure, SOB. His Hgb has stabilized. Prep for endoscopic evaluation is under way. - Review of Systems General: denies: fever/chills, weight/appetite/sleep changes, night sweats, fatigue Respiratory: denies: cough, congestion, shortness of breath, exercise intolerance Cardiovascular: denies: chest pain, palpitation, edema, paroxysmal nocturnal dyspnea, orthopnea Gastrointestinal: denies: nausea, vomiting, diarrhea, constipation, abd pain, GI bleeding Musculoskeletal: denies: pain, tenderness, stiffness, swelling, arthritis/ arthralgias Neurological: denies: numbness, syncope, seizure, weakness - Objective Allergies/Adverse Reactions: Allergies Allergy/AdvReac Type Severity Reaction Status Date / Time cefdinir Allergy Severe Anaphylaxis Verified 07/25/19 20:12 No Known Drug Allergies Allergy Verified 08/15/18 19:37 Visit Medications: Current Medications Acetaminophen (Tylenol) 1,000 mg PO Q6H PRN PRN Reason: Mild Pain (1-3) Albuterol Sulfate (Proventil Hfa) 1 puff INH Q4HR PRN PRN Reason: SOB &/or Wheezing Amiodarone HCl (Cordarone) 200 mg PO DAILY [facility] Last Admin: 07/26/19 08:29 Dose: 200 mg Carvedilol (Coreg) 6.25 mg PO BID-[facility] Last Admin: 07/26/19 17:49 Dose: Not Given Cyanocobalamin (Vitamin B-12) 1,000 mcg PO HS [facility] Folic Acid (Folvite) 1 mg PO HS [facility] Hydralazine HCl (Apresoline) 10 mg SLOW IVP Q4H PRN PRN Reason: SBP > 180 and HR < 70 Lisinopril (Zestril) 5 mg PO BID [facility] Last Admin: 07/26/19 08:29 Dose: 5 mg Multivitamins (Theragran) 1 tab PO HS [facility] Ondansetron HCl (Zofran Odt) 4 mg PO Q6H PRN PRN Reason: Nausea/Vomiting Ondansetron HCl (Zofran) 4 mg IVP Q6H PRN PRN Reason: Nausea/Vomiting Pantoprazole Sodium (Protonix) 40 mg IVP Q12HR [facility] Last Admin: 07/26/19 08:30 Dose: 40 mg Polyethylene Glycol/Electrolytes (Golytely) 4,000 ml PO NOW STELLA Stop: 07/26/19 19:30 Last Admin: 07/26/19 17:48 Dose: 4,000 ml Sodium Chloride (Normal Saline Pf) 10 ml FS PRN PRN PRN Reason: RECONSTITUTION Sodium Chloride (Flush - Normal Saline) 10 ml IVF PRN PRN PRN Reason: Saline Flush Vital Signs & Weight: Vital Signs Temp Pulse BP Pulse Ox 07/26/19 17:49 139/99 H 07/26/19 15:37 98.8 F 07/26/19 12:00 98.7 F 07/26/19 08:29 87 139/99 H 07/26/19 08:00 99 Weight 187 lb 11.2 oz - Physical Exam General: alert & oriented x3 HEENT: mucus membranes moist Neck: supple neck Cardiac: regular rate and rhythm, systolic murmur Lungs: clear to auscultation Neuro: grossly intact Abdomen: active bowel sounds Extremities: no edema Skin: clear Musculoskeletal: no pain - Labs Result Diagrams: 07/26/19 11:29 07/26/19 11:29 - Telemetry Sinus rhythms and dysrhythmias: sinus rhythm - Assessment/Plan Assessment/Plan: 1. Severe Iron deficiency anemia 2. High output cardiac failure due to severe anemia 3. S/P Bioprosthetic AVR. 4. Paroxysmal afib PLAN: - Anticoagulation contraindicated at this time. - Would resume low dose aspirin in the future once stable and if anemia has stabilized. Likely in next 2-4 months. - Hgb stable, would hold any more transfusions as long as hgb remains stable. - Endoscopic evaluation by GI scheduled. - He had a change in P wave morphology after coreg was given. He has been in sinus throughout though and P wave morphology is back to normal. He was asymptomatic during this with normal HR. - Will follow.
[2019-07-26] MEDS: Cyanocobalamin (Vitamin B-12) 1,000 MCG TAB PO SCH (20:57)
[2019-07-26] MEDS: Multivit, Therapeutic 1 TAB PO SCH (20:57)
[2019-07-26] MEDS: Folic Acid 1 MG TAB PO SCH (20:58)
[2019-07-27] MEDS ORDERED: PROPOFOL 200 MG/20 ML VIAL ONE (09:21)
[2019-07-27] MEDS ORDERED: Lidocaine 1% PF 5 ML VIAL ONE (09:21)
[2019-07-27] MEDS ORDERED: Ketorolac Tromethamine 30 MG/ML VIAL IVP PRN (10:20)
[2019-07-27] MEDS ORDERED: Promethazine HCl 25 MG/ML VIAL IM PRN (10:20)
[2019-07-27] MEDS ORDERED: Promethazine HCl 25 MG/ML VIAL SLOW IVP PRN (10:20)
[2019-07-27] MEDS ORDERED: Ondansetron HCl/PF 4 MG/2 ML Vial IVP PRN (10:20)
--- NOTE | 2019-07-27 10:55 | OP ---
DATE OF PROCEDURE: 07/27/2019 PREPROCEDURE DIAGNOSES: 1. Severe iron deficiency anemia. 2. History of chronic anticoagulation use. 3. Chronic obstructive pulmonary disease. POSTPROCEDURE DIAGNOSES: 1. Mild antral gastritis, nonerosive, biopsied, otherwise normal EGD. 2. Colon polyps, one in the transverse, one in the descending colon, 5 to 7 mm, sessile to semipedunculated, removed by cold snare polypectomy and submitted to Pathology. RECOMMENDATIONS: 1. Iron supplementation. 2. Celiac panel serologic, I will order that. 3. Okay to resume anticoagulation in 3 days. 4. His hemoglobin will need to be monitored by whoever is managing anticoagulation, whether it is his director recreation or his primary physician. ANESTHESIA: TIVA. PROCEDURE IN DETAIL: After the patient informed of the risks, benefits, and possible complications of endoscopy including perforation, bleeding, reaction to medication, aspiration, informed consent was obtained and the patient was brought to endoscopy suite, where he was sedated in a gradual fashion. Once he was comfortable, a bite block was placed in his orifice. Endoscope was advanced through the esophagus, stomach, into second and third portions of the duodenum and it was slowly removed. Duodenal mucosa appeared normal. No erosions or ulcerations. Villi appeared normal. Bulb was normal. The stomach was notable for some very mild erythema in the antrum, nonbleeding. Retroflexed views in the stomach were normal. The esophagus was normal. Biopsies were taken from the antrum and submitted to Pathology. The scope was then removed and the patient was turned to the room and rectal examination was performed and it was normal. The endoscope was advanced through the anal canal from the colon to the cecum, which was identified by the ileocecal valve and appendiceal orifice. The prep was good. There was diverticulosis coli throughout the colon with no stigmata of bleeding. There was one polyp in the transverse and one in the descending colon, both semipedunculated, 5 to 7 mm in size, removed by cold snare polypectomy. Retroflexed views in the rectum were normal. The scope was removed. The patient tolerated the procedure well with no complications. Job ID: [id number]
[2019-07-27] MEDS: Carvedilol 6.25 MG TAB PO SCH ×2 (12:11→17:27)
[2019-07-27] MEDS: Amiodarone 200 MG TAB PO SCH (12:11)
[2019-07-27] MEDS: Lisinopril 5 MG TAB PO SCH ×2 (12:11→20:33)
[2019-07-27] MEDS: Pantoprazole 40 MG VIAL IVP SCH ×2 (12:12→20:34)
[2019-07-27 13:07] LABS: Bilirubin, Total 1.6 mg/dL (0.2-1.2)
--- NOTE | 2019-07-27 18:01 | PDOC.CPN ---
- Subjective Date: 07/27/19 Time: 17:59 Interval history: He is doing well. He had his colonoscopy and was fount ot have 2 polyps which were removed. No obvious source of bleeding. - Review of Systems General: denies: fever/chills, weight/appetite/sleep changes, night sweats, fatigue Respiratory: denies: cough, congestion, shortness of breath, exercise intolerance Cardiovascular: denies: chest pain, palpitation, edema, paroxysmal nocturnal dyspnea, orthopnea Gastrointestinal: denies: nausea, vomiting, diarrhea, constipation, abd pain, GI bleeding Musculoskeletal: denies: pain, tenderness, stiffness, swelling, arthritis/ arthralgias Neurological: denies: numbness, syncope, seizure, weakness - Objective Allergies/Adverse Reactions: Allergies Allergy/AdvReac Type Severity Reaction Status Date / Time cefdinir Allergy Severe Anaphylaxis Verified 07/25/19 20:12 No Known Drug Allergies Allergy Verified 08/15/18 19:37 Visit Medications: Current Medications Acetaminophen (Tylenol) 1,000 mg PO Q6H PRN PRN Reason: Mild Pain (1-3) Albuterol Sulfate (Proventil Hfa) 1 puff INH Q4HR PRN PRN Reason: SOB &/or Wheezing Amiodarone HCl (Cordarone) 200 mg PO DAILY [facility] Last Admin: 07/27/19 12:11 Dose: 200 mg Carvedilol (Coreg) 6.25 mg PO BID-[facility] Last Admin: 07/27/19 17:27 Dose: 6.25 mg Cyanocobalamin (Vitamin B-12) 1,000 mcg PO [facility] Last Admin: 07/26/19 20:57 Dose: 1,000 mcg Folic Acid (Folvite) 1 mg PO [facility] Last Admin: 07/26/19 20:58 Dose: 1 mg Hydralazine HCl (Apresoline) 10 mg SLOW IVP Q4H PRN PRN Reason: SBP > 180 and HR < 70 Lisinopril (Zestril) 5 mg PO BID [facility] Last Admin: 07/27/19 12:11 Dose: 5 mg Multivitamins (Theragran) 1 tab PO [facility] Last Admin: 07/26/19 20:57 Dose: 1 tab Ondansetron HCl (Zofran Odt) 4 mg PO Q6H PRN PRN Reason: Nausea/Vomiting Ondansetron HCl (Zofran) 4 mg IVP Q6H PRN PRN Reason: Nausea/Vomiting Pantoprazole Sodium (Protonix) 40 mg IVP Q12HR [facility] Last Admin: 07/27/19 12:12 Dose: 40 mg Sodium Chloride (Normal Saline Pf) 10 ml FS PRN PRN PRN Reason: RECONSTITUTION Sodium Chloride (Flush - Normal Saline) 10 ml IVF PRN PRN PRN Reason: Saline Flush Vital Signs & Weight: Vital Signs Temp BP Pulse Ox 07/27/19 17:27 139/99 H 07/27/19 16:19 100.6 F H 07/27/19 12:11 139/99 H 07/27/19 11:59 98.2 F 07/27/19 08:00 95 07/27/19 07:34 99.3 F Weight 188 lb 1.6 oz - Physical Exam General: alert & oriented x3 HEENT: mucus membranes moist Neck: supple neck Cardiac: regular rate and rhythm Lungs: clear to auscultation Neuro: grossly intact Abdomen: active bowel sounds Extremities: no edema Skin: clear Musculoskeletal: no pain - Labs Result Diagrams: 07/26/19 11:29 07/26/19 11:29 - Telemetry Sinus rhythms and dysrhythmias: sinus rhythm - Assessment/Plan Assessment/Plan: 1. Severe Iron deficiency anemia 2. High output cardiac failure due to severe anemia 3. S/P Bioprosthetic AVR. 4. Paroxysmal afib PLAN: - Anticoagulation contraindicated. - Would resume low dose aspirin in 2 weeks. - Hgb stable. - May discharge home any time from cardiac perspective.
--- NOTE | 2019-07-27 18:59 | PRG ---
DATE OF SERVICE: 07/26/2019 SUBJECTIVE: Mr. Sloan is without complaints. He did receive transfusion up to a blood count of 9.2. He has had no overt bleeding. Breathing seems to be better. OBJECTIVE: VITAL SIGNS: T-max 98.2, pulse 87, respirations 18, blood pressure 110/68. ABDOMEN: Soft and nontender. LUNGS: Clear with some rhonchi in the bases. No expiratory wheezing. ASSESSMENT AND PLAN: 1. Anemia, iron deficiency, heme-negative stool, likely related to chronic anticoagulation. Plan esophagogastroduodenoscopy and colonoscopy on the . 2. Abnormal liver enzymes with negative autoimmune workup. Negative AFP. Ultrasound with fatty liver. Negative hepatitis serologies. Bilirubin is 2.3 today. AST and ALT are 75 and 105. This may be a function of passive congestion or heart failure as he has a history of severe cardiomyopathy and may have been exacerbated by anemia. Job ID: [id number]
[2019-07-27] MEDS: Multivit, Therapeutic 1 TAB PO SCH (20:33)
[2019-07-27] MEDS: Folic Acid 1 MG TAB PO SCH (20:33)
[2019-07-27] MEDS: Cyanocobalamin (Vitamin B-12) 1,000 MCG TAB PO SCH (20:33)
--- NOTE | 2019-07-27 21:44 | PDOC.HOSPP ---
- Subjective Encounter Date: 07/27/19 Encounter Time: 19:00 Subjective: Patient seen and examined for Anemia. SOB improving. No CP or SOB. No new complaints. No overnight events - Objective Vital Signs & Weight: Vital Signs (12 hours) Temp Pulse BP 07/27/19 20:33 73 143/81 H 07/27/19 17:27 139/99 H 07/27/19 16:19 100.6 F H 07/27/19 12:11 139/99 H 07/27/19 11:59 98.2 F Weight Weight 188 lb 1.6 oz Most Recent Monitor Data Heart Rate from ECG 87 NIBP 108/71 NIBP BP-Mean 83 Respiration from ECG 23 SpO2 88 I&O: 07/26/19 07/27/19 07/28/19 06:59 06:59 06:59 Intake Total 2445 1500 Output Total 2500 900 650 Balance -55 -900 850 Result Diagrams: 07/26/19 11:29 07/26/19 11:29 EKG Reviewed by me: Yes (Tele SR) Hospitalist ROS - Review of Systems Respiratory: reports: SOB with excertion. denies: cough, dry, shortness of breath, hemoptysis, pleuritic pain, sputum, wheezing, other Cardiovascular: denies: chest pain, palpitations, orthopnea, paroxysmal noc. dyspnea, edema, light headedness, other - Medication Medications: Active Medications Generic Name Dose Route Start Last Admin Trade Name Freq PRN Reason Stop Dose Admin Amiodarone HCl 200 mg 07/24/19 09:00 07/27/19 12:11 Cordarone PO 200 mg DAILY [facility]A Administration Carvedilol 6.25 mg 07/24/19 08:00 07/27/19 17:27 Coreg PO 6.25 mg BID-[facility] STELLA Administration Cyanocobalamin 1,000 mcg 07/26/19 21:00 07/27/19 20:33 Vitamin B-12 PO 1,000 mcg HS STELLA Administration Folic Acid 1 mg 07/26/19 21:00 07/27/19 20:33 Folvite PO 1 mg HS STELLA Administration Lisinopril 5 mg 07/24/19 09:00 07/27/19 20:33 Zestril PO 5 mg BID STELLA Administration Multivitamins 1 tab 07/26/19 21:00 01/30/20 20:33 Theragran PO 1 tab HS STELLA Administration Pantoprazole Sodium 40 mg 07/24/19 09:00 07/27/19 20:34 Protonix IVP 40 mg Q12HR STELLA Administration - Exam General Appearance: NAD Heart: RRR, no gallops Respiratory: no wheezes, no ronchi Gastrointestinal: non-tender, non-distended, normal bowel sounds Extremities: no cyanosis Hosp A/P - Plan DVT proph w/SCDs Severe symptomatic Anemia s/p 6 units PRBC Par Afib Severe Hyponatremia Chronic diastolic HF with acute high output heart failure Abn LFTs NEERU on CKD 2 Hyperkalemia on admission h/o Bioprosthetic AVR PLAN: Change PPI to PO s/p EGD/Colon Cont Coreg/Amiodarone DC planning
[2019-07-28] MEDS: Lisinopril 5 MG TAB PO SCH (09:27)
[2019-07-28] MEDS: Carvedilol 6.25 MG TAB PO SCH ×2 (09:27→17:07)
[2019-07-28] MEDS: Amiodarone 200 MG TAB PO SCH (09:28)
[2019-07-28 15:24] VITALS: BP 136/77; TEMP 98.9
--- NOTE | 2019-07-28 19:22 | DIS ---
DATE OF ADMISSION: 07/23/2019 DATE OF DISCHARGE: 07/28/2019 DISCHARGE DISPOSITION: Home. FOLLOWUP: 1. Follow up with primary care physician at [facility] in 1 week. 2. Follow up with Cardiology, Dr. Salinas as well as Gastroenterology, Dr. Cavanaugh as scheduled. ALLERGIES: THE PATIENT IS ALLERGIC TO OMNICEF. DISCHARGE MEDICATIONS: The patient was advised to hold aspirin and Eliquis. Protonix 40 mg daily was started. He was advised to restart aspirin if okay with Dr. Salinas. DIAGNOSTIC TESTS: Hemoglobin on admission 3.7, at discharge was 9.2. Acute hepatitis profile was negative. MARY screen was negative. Sodium on admission was 116, at discharge was 130. Total bilirubin on admission 2.1, at discharge was 1.6. Alpha-fetoprotein was negative. Vitamin B12 was 539. Folic acid was 13.7. INPATIENT CONSULTANTS: 1. Cardiology, Dr. Salinas. 2. Gastroenterology, Dr. Cavanaugh. BRIEF HOSPITAL COURSE: The patient is a 68-year-old male with chronic atrial fibrillation on Eliquis, presented to the hospital on July 23, 2019, with shortness of breath and bilateral lower extremity swelling. His workup was consistent with high-output heart failure secondary to symptomatic anemia with hemoglobin of 3.7. He was admitted to intermediate care unit for close monitoring. He received a total of 6 units of PRBC. His hemoglobin has stabilized. He underwent EGD and colonoscopy that showed mild antral gastritis, which was nonerosive as well as colonic polyps, one in the transverse colon and one in the descending colon. Celiac panel serology has been ordered and pending at the time of discharge. Anticoagulation has been discontinued by Dr. Salinas. Dr. Salinas wants the patient to wait on aspirin for now. He appears stable for discharge. The patient also had hyponatremia secondary to volume overload on admission that improved. His sodium at discharge is 130. He will benefit from repeat labs as outpatient. The patient also was found to have abnormal LFTs probably secondary to passive hepatic congestion. Statins will be held for now. FINAL DIAGNOSES: 1. Severe symptomatic anemia requiring 6 units of PRBC. 2. Acute high-output heart failure secondary to severe anemia. 3. Paroxysmal atrial fibrillation, anticoagulation discontinued. 4. Severe hyponatremia. 5. Chronic diastolic heart failure. 6. Abnormal LFTs of unclear etiology. 7. Acute kidney injury on chronic kidney disease stage 2. 8. Hyperkalemia, on admission resolved. 9. History of bioprosthetic aortic valve replacement. 10. Mild antral gastritis. 11. Colonic polyp. TEST PENDING AT DISCHARGE: Celiac panel. The patient understands the above plan of care. Job ID: [id number]
--- NOTE | 2019-07-31 00:01 | EKG ---
Test Reason : Blood Pressure : / mmHG Vent. Rate : 052 BPM Atrial Rate : 052 BPM P-R Int : 276 ms QRS Dur : 106 ms QT Int : 568 ms P-R-T Axes : 245 056 154 degrees QTc Int : 528 ms Unusual P axis, possible ectopic atrial bradycardia Low voltage QRS Septal infarct , age undetermined Prolonged QT Abnormal ECG When compared with ECG of 15-AUG-2018 15:32, Ectopic atrial rhythm has replaced Sinus rhythm Left bundle branch block is no longer Present Septal infarct is now Present Confirmed by Jay ROCHA ([id number]) on 07/31/2019 12:01:09 AM Referred By: TRINITY Confirmed By:Jay ROCHA
--- NOTE | 2019-07-31 01:16 | PQF ---
SELENE BOSE MALIK MD [id number] [facility]286 [id number] CLINICAL DOCUMENTATION CLARIFICATION FORM: POST DISCHARGE Addendum to original discharge summary date: ____ Late entry note date: __ DATE: 07/31/2019 ATTN: Larry Corona Please exercise your independent, professional judgment in responding to the clarification form. Clinical indicators are provided on the bottom of this form for your review Please check appropriate box(s): Conflicting documentation was noted in the Medical Record, please clarify if patient is being treated/monitored for: [ x] Chronic diastolic heart failure [ ] Acute systolic heart failure [ x ] Other diagnosis Acute high output heart failure due to Severe Anemia [ ] Unable to determine In addition, please specify: Present on Admission (POA): [ x ] Yes [ ] No [ ] Unable to determine For continuity of documentation, please document condition throughout progress notes and discharge summary. Thank You. CLINICAL INDICATORS - SIGNS / SYMPTOMS/ LABS DS 07/28 "chronic diastolic heart failure" DS 07/28 "acute high-output heart failure" PN 07/25 "acute systolic CHF" ED Notes 07/23 "patient presents for evaluation of SOB" ED Notes 07/23 "acute CHF" HP 07/23 "cc:SOB and lower extremity swelling" Consult 07/24 "mild JVD distention is present" Consult 07/24 "Xray looks like he has some increased markings in the upper lung rodgers consistent with vascular congestion" Consult 07/24 "he has an enlarged heart" RISK FACTORS ED Notes 07/23-68 years old ED Notes 07/23-HTN PN 07/26-CKD 2 PN 07/26-NEERU Consult 07/24-Afib TREATMENT Consult 07/24-Chest Xray MAR 07/23-Lasix 40mg IV (This form is maintained as a part of the permanent medical record) 2014 [employer]. All Rights Reserved [email or web address]
[2019-07-31 14:01] LABS: EliA Celiac New Method **** NEW METHOD ****; t-Transglutaminase (tTG) IgA 0.3 EliAU/mL (<7 Negative)
--- NOTE | 2019-08-01 21:16 | PQF ---
SELENE BOSE MALIK MD [id number] [facility][id number] CLINICAL DOCUMENTATION CLARIFICATION FORM: POST DISCHARGE Addendum to original discharge summary date: ____ Late entry note date: __ DATE: 08/01/2019 ATTN: Larry Corona Please exercise your independent, professional judgment in responding to the clarification form. Clinical indicators are provided on the bottom of this form for your review Can you please verify the diagnosis occasioning inpatient admission? Please check appropriate box(s): [ x ] Acute kidney injury [ ] Iron deficiency anemia [ ] GI bleed(please specify known etiology) [x ] Hyponatremia [ x] Other diagnosis Severe iron deficiency Anemia with suspected GI bleed [ ] Unable to determine For continuity of documentation, please document condition throughout progress notes and discharge summary. Thank You. CLINICAL INDICATORS - SIGNS / SYMPTOMS / LABS HP 07/23"CBC showing a hgb of 3.7. The previous hgb on the record was noted 6.6 " HP 07/23"Hyponatremia, etiology unclear" HP 07/23"Acute kidney injury" Consult 07/24"significant anemia,microcytic. He is Hemoccult negative, but likely has had a slow chronic GIB" OP Note 07/27"Postop diagnosis: Antral gastritis,colon polyps" Labs 07/24: RBC=2.46 Hgb=5.3 Hct=17.3 Labs Sodium:07/2521=470 07/2674=574 RISK FACTORS ED Notes 07/23-68 years old male ED Notes 07/23-HTN Query Response-Chronic CHF ED Notes 07/23-Former Smoker DS 07/28-Afib DS 07/28-Chronic Eliquis use TREATMENTS: ED Notes 07/23-Blood transfusion HP 07/23-Hold Eliquis HP 07/23-IVF HP 07/23-Avoid nephrotoxic agents HP 07/23-Serial creatinine monitoring OP Note 07/27-Colonoscopy and EGD MAR 07/23-Sodium Chloride 1000ml IV (This form is maintained as a part of the permanent medical record) 2014 [employer]. All Rights Reserved [email or web address]
--- NOTE | 2019-08-02 20:40 | PQF ---
SELENE BOSE MALIK MD [id number] [facility]286 [id number] CLINICAL DOCUMENTATION CLARIFICATION FORM: POST DISCHARGE Addendum to original discharge summary date: ____ Late entry note date: __ DATE: 08/02/2019 ATTN: Larry Corona Please exercise your independent, professional judgment in responding to the clarification form. Clinical indicators are provided on the bottom of this form for your review Based on your clinical judgment, can you please specify etiology of patient's GIB? Please check appropriate box(s): [ ] Gastritis [ ] Colon Polyp [ ] Diverticulosis [ ] GIB unknown etiology [ ] Other diagnosis [ x ] Unable to determine For continuity of documentation, please document condition throughout progress notes and discharge summary. Thank You. CLINICAL INDICATORS - SIGNS / SYMPTOMS / LABS Query Response 08/02"Iron deficiency anemia due to suspected GIB" Consult 07/24"significant anemia,microcytic. He is Hemoccult negative, but likely has had a slow chronic GIB" OP Note 07/27"Postop diagnosis: Antral gastritis,colon polyps" RISK FACTORS ED Notes 07/23-68 years old male ED Notes 07/23-HTN DS 07/28-Chronic Eliquis use ED Notes 07/23-Former Smoker OP Note 07/27-Antral gastritis OP Note 07/27-Colon polyps OP Note 07/27-Divertivulosis TREATMENTS: ED Notes 07/23-Blood transfusion HP 07/23-Hold Eliquis HP 07/23-IVF OP Note 07/27-Colonoscopy and EGD (This form is maintained as a part of the permanent medical record) 2014 [employer]. All Rights Reserved [email or web address] [phone] [facility]
== END 2019-07-28 17:31 | disposition home or self-care (01) | DRG 378 ==
LOC: ERS 17:28 → ERHOLD 20:37 → IMCU/EMU 23:41 → 2NO 07-27 19:04
PROVIDERS: ADMIT Hospitalist; ATTEND Hospitalist
PROC: 30233N1 Transfusion of Nonautologous Red Blood Cells into Peripheral Vein, Percutaneous Approach (ICD-10-PCS; 2019-07-23)
PROC: 0DB78ZX Excision of Stomach, Pylorus, Via Natural or Artificial Opening Endoscopic, Diagnostic (ICD-10-PCS; principal; 2019-07-27)
PROC: 0DBM8ZX Excision of Descending Colon, Via Natural or Artificial Opening Endoscopic, Diagnostic (ICD-10-PCS; 2019-07-27)
PROC: 0DBL8ZX Excision of Transverse Colon, Via Natural or Artificial Opening Endoscopic, Diagnostic (ICD-10-PCS; 2019-07-27)
DX: K92.2 Gastrointestinal hemorrhage, unspecified (principal); N17.9 Acute kidney failure, unspecified; E87.1 Hypo-osmolality and hyponatremia; I50.32 Chronic diastolic (congestive) heart failure; I13.0 Hypertensive heart and chronic kidney disease with heart failure and stage 1 through stage 4 chronic kidney disease, or unspecified chronic kidney disease; D50.9 Iron deficiency anemia, unspecified; R74.0 Nonspecific elevation of levels of transaminase and lactic acid dehydrogenase [LDH]; I48.0 Paroxysmal atrial fibrillation; I44.0 Atrioventricular block, first degree; N18.2 Chronic kidney disease, stage 2 (mild); J44.9 Chronic obstructive pulmonary disease, unspecified; E87.5 Hyperkalemia; K29.70 Gastritis, unspecified, without bleeding; K57.30 Diverticulosis of large intestine without perforation or abscess without bleeding; K63.5 Polyp of colon; Z87.01 Personal history of pneumonia (recurrent); Z87.891 Personal history of nicotine dependence; Z79.01 Long term (current) use of anticoagulants; Z79.82 Long term (current) use of aspirin; Z79.899 Other long term (current) drug therapy; Z95.3 Presence of xenogenic heart valve; Z79.51 Long term (current) use of inhaled steroids
CPT/HCPCS: 36415; 36430; 80053; 80074; 82105; 82247; 82274; 82607; 82728; 82746; 83516; 83540; 83550; 83735; 84100; 85007; 85025; 85027; 85046; 85049; 85300; 85362; 85379; 85384; 85610; 85730; 86038; 86225; 86850; 86900; 86901; 88305; 88312; 93005; 93010; 93306; 96365; 96366; 96375; C9113; J1940; J2001; J2704; J3490; J7620; P9016